=== PATIENT | male | born 1940 | race Caucasian/White ===

== ENCOUNTER 2016-09-04 11:35 | Inpatient (IN) | payer MEDICARE, BC ==
[2016-09-04 12:14] VITALS: BP 144/73; PULSE 75; RESP 16; TEMP 98.1; O2SAT 97
[2016-09-04] MEDS ORDERED: CITA20TA4 PO (12:18)
[2016-09-04] MEDS ORDERED: DONE10TA7 PO (12:18)
--- NOTE | 2016-09-04 12:19 | PD ---
HPI Chief Complaint: Psychiatric Symptoms Time Seen by Provider: 12:16 Travel History International Travel<30 days: No Contact w/Intl Traveler<30days: No History of Present Illness HPI Patient comes in under police escort under a [place] act. Per [place] act patient was becoming aggressive an arguing with family. catapult and arresting gear officer also reports that en route patient asked the officer to shoot him in the head. Patient reportedly has a history of dementia. Patient denies any homicidal or suicidal ideations. Denies any medical concerns at this time. Denies any chest pain, shortness of breath, fevers, abdominal pain, or headaches. [facility] Past Medical History Narrative Medical Dementia Social History Alcohol Use: No Tobacco Use: No Substance Use: No Allergies-Medications (Allergen,Severity, Reaction): Coded Allergies: No Known Allergies (Unverified , 09/04/16) Reported Meds & Prescriptions Reported Meds & Active Scripts Active Reported Donepezil 10 Mg Tab 10 Mg PO HS Citalopram (Citalopram Hydrobromide) 20 Mg Tab 20 Mg PO DAILY Review of Systems Except as stated in HPI: all other systems reviewed are Neg Physical Exam Narrative GENERAL: Well-developed, well nourished, in no acute distress, and non-ill appearing. SKIN: Focused skin assessment warm and dry. HEAD: Atraumatic. Normocephalic. EYES: Pupils equal and round. EOMI. No scleral icterus. No injection or drainage. ENT: No nasal bleeding or discharge. Mucous membranes pink and moist. NECK: Trachea midline. Supple. No nuclear rigidity. CARDIOVASCULAR: Regular rate and rhythm. No murmur appreciated. RESPIRATORY: No accessory muscle use. No respiratory distress. Clear to auscultation. Breath sounds equal bilaterally. MUSCULOSKELETAL: No obvious deformities. No clubbing. No cyanosis. No edema. Full range of motion. NEUROLOGICAL: Awake and alert. No obvious cranial nerve deficits. Motor grossly within normal limits. Normal speech. PSYCHIATRIC: Appropriate mood and affect; insight and judgment normal. Data Data Last Documented VS Vital Signs Date Time Temp Pulse Resp B/P Pulse Ox O2 Delivery O2 Flow Rate FiO2 09/04/16 12:14 98.1 75 16 144/73 97 Room Air Orders Complete Blood Count With Diff (09/04/16 11:58) Comprehensive Metabolic Panel (09/04/16 11:58) Urinalysis - C+S If Indicated (09/04/16 11:58) Psych Screen (09/04/16 11:58) Drug Screen, Random Urine (09/04/16 11:58) Alcohol (Ethanol) (09/04/16 11:58) Salicylates (Aspirin) (09/04/16 11:58) Tylenol (Acetaminophen) (09/04/16 11:58) Restraints Non-Violent DORA.Q3H (09/04/16 13:20) Labs Laboratory Tests Test 09/04/16 09/04/16 12:25 12:28 White Blood Count 5.8 TH/MM3 Red Blood Count 5.01 MIL/MM3 Hemoglobin 15.8 GM/DL Hematocrit 46.9 % Mean Corpuscular Volume 93.6 FL Mean Corpuscular Hemoglobin 31.4 PG Mean Corpuscular Hemoglobin 33.6 % Concent Red Cell Distribution Width 13.6 % Platelet Count 119 TH/MM3 Mean Platelet Volume 10.5 FL Neutrophils (%) (Auto) 77.4 % Lymphocytes (%) (Auto) 14.4 % Monocytes (%) (Auto) 7.0 % Eosinophils (%) (Auto) 0.7 % Basophils (%) (Auto) 0.5 % Neutrophils # (Auto) 4.5 TH/MM3 Lymphocytes # (Auto) 0.8 TH/MM3 Monocytes # (Auto) 0.4 TH/MM3 Eosinophils # (Auto) 0.0 TH/MM3 Basophils # (Auto) 0.0 TH/MM3 CBC Comment DIFF FINAL Differential Comment Sodium Level 140 MEQ/L Potassium Level 4.3 MEQ/L Chloride Level 106 MEQ/L Carbon Dioxide Level 28.7 MEQ/L Anion Gap 5 MEQ/L Blood Urea Nitrogen 17 MG/DL Creatinine 1.28 MG/DL Estimat Glomerular Filtration 55 ML/MIN Rate Random Glucose 135 MG/DL Calcium Level 9.3 MG/DL Total Bilirubin 1.1 MG/DL Aspartate Amino Transf 28 U/L (AST/SGOT) Alanine Aminotransferase 27 U/L (ALT/SGPT) Alkaline Phosphatase 94 U/L Total Protein 7.6 GM/DL Albumin 3.9 GM/DL Salicylates Level LESS THAN 1.7 MG/DL Acetaminophen Level LESS THAN 2.0 MCG/ML Ethyl Alcohol Level LESS THAN 3 MG/DL Urine Color YELLOW Urine Turbidity CLEAR Urine pH 5.0 Urine Specific [place] 1.026 Urine Protein 30 mg/dL Urine Glucose (UA) NEG mg/dL Urine Ketones NEG mg/dL Urine Occult Blood TRACE Urine Nitrite NEG Urine Bilirubin NEG Urine Urobilinogen LESS THAN 2.0 MG/DL Urine Leukocyte Esterase NEG Urine RBC 1 /hpf Urine WBC 1 /hpf Urine Squamous Epithelial <1 /hpf Cells Urine Granular Casts 12 /lpf Urine Mucus FEW /lpf Microscopic Urinalysis Comment CULT NOT INDICATED Urine Opiates Screen NEG Urine Barbiturates Screen NEG Urine Amphetamines Screen NEG Urine Benzodiazepines Screen NEG Urine Cocaine Screen NEG Urine Cannabinoids Screen NEG MDM Medical Decision Making Medical Screen Exam Complete: Yes Emergency Medical Condition: Yes Differential Diagnosis Homicidal, suicidal, dementia, electrolyte abnormality, other Narrative Course Patient was seen and examined. Labs were obtained and reviewed. Patient medically cleared for further treatment and evaluation by psych. Final disposition per psych. Diagnosis Primary Impression: Medical clearance for psychiatric admission Condition: Charles Fatima Sep 04, 2016 12:19
[2016-09-04 12:41] LABS: AUTOMATED NEUTROPHIL # 4.5 TH/MM3 (1.8-7.7); BASOPHIL % 0.5 % (0.0-2.0); EOSINOPHIL % 0.7 % (0.0-4.0); HEMATOCRIT 46.9 % (39.0-51.0); HEMO FLAGS DIFF FINAL; LYMPH % 14.4 % (9.0-44.0); LYMPHOCYTE # 0.8 TH/MM3 (1.0-4.8); MEAN CELL VOLUME 93.6 FL (80.0-100.0); MEAN CORPUSCULAR HEMOGLOBIN 31.4 PG (27.0-34.0); MEAN CORPUSCULAR HGB CONC 33.6 % (32.0-36.0); NEUT % 77.4 % (16.0-70.0); PLATELET COUNT 119 TH/MM3 (150-450); RED BLOOD COUNT 5.01 MIL/MM3 (4.50-5.90); RED CELL DISTRIBUTION WIDTH 13.6 % (11.6-17.2); WHITE BLOOD COUNT 5.8 TH/MM3 (4.0-11.0)
[2016-09-04 12:56] LABS: AMPHETAMINE, URINE NEG (NEG); BARBITURATES, URINE NEG (NEG); COCAINE, URINE NEG (NEG)
[2016-09-04 12:57] LABS: BLOOD, URINE TRACE (NEG); COMMENT (UR) CULT NOT INDICATED; CULTURE IF INDICATED CULT NOT INDICATED; GLUCOSE,URINE NEG (NEG); GRANULAR CAST, URINE 12 /lpf; KETONE, URINE NEG (NEG); MUCUS URINE FEW /lpf (OCC); NITRITE,URINE NEG (NEG); SQUAMOUS EPITHELIAL CELL URINE <1 /hpf (0-5); URINE COLOR YELLOW (YELLW/STRAW)
[2016-09-04 13:07] LABS: ALT (GPT) 27 U/L (12-78); ANION GAP 5 MEQ/L (5-15); AST (GOT) 28 U/L (15-37); BICARBONATE 28.7 MEQ/L (21.0-32.0); BLOOD UREA NITROGEN 17 MG/DL (7-18); CHLORIDE 106 MEQ/L (98-107); GLOMERULAR FILTRATION RATE 55 ML/MIN (>89); POTASSIUM 4.3 MEQ/L (3.5-5.1); SODIUM (NA) 140 MEQ/L (136-145)
[2016-09-04 13:10] LABS: ALKALINE PHOSPHATASE 94 U/L (45-117); TOTAL BILIRUBIN ADULT 1.1 MG/DL (0.2-1.0)
[2016-09-04 13:11] LABS: ACETAMINOPHEN LESS THAN 2.0 MCG/ML (10.0-30.0)
[2016-09-04] MEDS ORDERED: TRAV0.00 EACH EYE (17:43)
[2016-09-04] MEDS ORDERED: COMB0.2S EACH EYE (17:43)
[2016-09-04] MEDS ORDERED: SIMV40TA PO (17:43)
[2016-09-04 18:53] VITALS: BP 128/74; PULSE 75; RESP 20; O2SAT 98
[2016-09-04] MEDS ORDERED: LORazepam 2 MG/ML VIAL - age > 65 yrs IM PRN (20:15)
[2016-09-04] MEDS ORDERED: ALUMINUM/MAGNESIUM/SIMETH 30 ML CUP PO PRN (20:15)
[2016-09-04] MEDS ORDERED: MAGNESIUM HYDROXIDE SUSP 30 ML CUP PO PRN (20:15)
[2016-09-04] MEDS ORDERED: ACETAMINOPHEN 325 MG TAB PO PRN (20:15)
[2016-09-04] MEDS ORDERED: BRIMONIDINE TIMOLOL EACH EAR SCH (21:00)
[2016-09-04] MEDS ORDERED: DONEPEZIL HCL 5 MG TAB PO SCH (21:00)
[2016-09-04 21:30] VITALS: BP 154/86; PULSE 84; RESP 17; TEMP 97.7; O2SAT 98
[2016-09-04] MEDS: LATANOPROST 0.005% OPHT SOLN 2.5 ML BTL EACH EYE SCH (23:47)
[2016-09-04] MEDS: PRAVASTATIN SOD 80 MG TAB PO SCH (23:47)
[2016-09-05 06:04] VITALS: BP 108/64; PULSE 84; RESP 18; TEMP 98.1; O2SAT 96
[2016-09-05 09:29] LABS: ANION GAP 9 MEQ/L (5-15); BICARBONATE 28.7 MEQ/L (21.0-32.0); BLOOD UREA NITROGEN 16 MG/DL (7-18); CHLORIDE 103 MEQ/L (98-107); GLOMERULAR FILTRATION RATE 61 ML/MIN (>89); HDL CHOLESTEROL 73.9 MG/DL (40.0-60.0); LDL CHOLESTEROL 93 MG/DL (0-99); POTASSIUM 3.8 MEQ/L (3.5-5.1); SODIUM (NA) 141 MEQ/L (136-145)
[2016-09-05] MEDS: DONEPEZIL HCL 5 MG TAB PO SCH (09:48)
[2016-09-05] MEDS: CITALOPRAM HYDROBROMIDE 20 MG TAB PO SCH (09:48)
[2016-09-05 13:17] LABS: HEMOGLOBIN A1b 0.7 %; HEMOGLOBIN F 1.2 %; HEMOGLOBIN LA1C 1.9 %; HEMOGLOBIN P3 3.4 %
--- NOTE | 2016-09-05 14:43 | PD.CONS ---
HPI Service [facility] Consult Requested By Psychiatry team Dr. Bob Reason for Consult Medical management-glaucoma Primary Care Physician Unknown Diagnoses: History of Present Illness Patient is a 76-year-old male with primary medical history of HTN, history of CVA 2, glaucoma, dementia who came in to the hospital under [place] act. As per report, patient was becoming aggressive and arguing with family. In route to the hospital, patient asked the officer to shoot him in the head. Patient is now admitted to inpatient psychiatry unit for further evaluation. Consulted for medical management. Patient seen today. Verified medical history. States he had CVAs 2 in was given aspirin and statin medication by neurology. States that he was told if the medication is completed he doesn't need to continue with a refill. Patient also reports he has glaucoma, anxiety, HTN. Denies any acute issues. Denies pain and discomfort. Denies SOB/ dyspnea. Denies chest pain, palpitations, headaches, dizziness. Denies fevers, chills, n/v/d. Review of Systems Except as stated in HPI: all other systems reviewed are Neg Past Family Social History Allergies: Coded Allergies: No Known Allergies (Unverified , 09/04/16) Past Medical History CVA 2 Glaucoma Anxiety HTN Past Surgical History Left knee replacement Reported Medications Combigan 1 drop each eye every 12 hours Citalopram 20 mg daily Simvastatin 40 mg daily Donepezil 10 mg daily Travatan 1 drop each eye daily at bedtime Active Ordered Medications Current Medications Medications (Trade) Dose Ordered Sig/Steven Route Start Time Stop Time Status Last Admin (Ativan) 0.5 mg Q12H PRN PO 09/04/16 20:15 (Ativan Inj) 0.5 mg Q12H PRN IM 09/04/16 20:15 (Tylenol) 650 mg Q4H PRN PO 09/04/16 20:15 (Milk Of Magnesia Liq) 30 ml DAILY PRN PO 09/04/16 20:15 (Mag-Al Plus Susp Liq) 30 ml Q6H PRN PO 09/04/16 20:15 (CeleXA) 20 mg DAILY PO 09/05/16 09:00 09/05/16 09:48 (Xalatan 0.005% Opth Soln) 1 drop HS EACH EYE 09/04/16 21:00 09/04/16 23:47 Patient Own Medication PT OWN MED: BRIMONIDINE-TIMOLOL (COMBIGAN O... BID EACH EAR 09/04/16 21:00 Hold (Pravachol) 80 mg HS PO 09/04/16 21:00 09/04/16 23:47 (Aricept) 10 mg DAILY PO 09/05/16 09:00 09/05/16 09:48 Family History Father had a stroke Social History Alcohol use not within 2 years. Tobacco use former occasional user has quit approximately more than 10 years ago Denies illicit drug use Physical Exam Vital Signs Vital Signs Date Time Temp Pulse Resp B/P Pulse Ox O2 Delivery O2 Flow Rate FiO2 09/05/16 06:04 98.1 84 18 108/64 96 09/04/16 21:30 97.7 84 17 154/86 98 09/04/16 18:53 75 20 128/74 98 Physical Exam GENERAL: This is a well-nourished, well-developed patient, in no apparent distress. SKIN: No rashes, ecchymoses or lesions. Cool and dry. HEAD: Atraumatic. Normocephalic. No temporal or scalp tenderness. EYES: Pupils equal round and reactive. No scleral icterus. No injection or drainage. ENT: Nose without bleeding. Throat without erythema. Uvula midline. Airway patent. NECK: Trachea midline. No JVD or lymphadenopathy. Supple, nontender, no meningeal signs. CARDIOVASCULAR: Regular rate and rhythm without murmurs, gallops, or rubs. RESPIRATORY: Clear to auscultation. Breath sounds equal bilaterally. No wheezes , rales, or rhonchi. GASTROINTESTINAL: Abdomen soft, non-tender, nondistended. Bowel sounds active 4 MUSCULOSKELETAL: Extremities without clubbing, cyanosis, or edema. No joint tenderness, effusion, or edema noted. NEUROLOGICAL: Awake and alert. Forgetful. Motor and sensory grossly within normal limits. Normal speech. Laboratory Laboratory Tests Test 09/05/16 08:35 Sodium Level 141 Potassium Level 3.8 Chloride Level 103 Carbon Dioxide Level 28.7 Anion Gap 9 Blood Urea Nitrogen 16 Creatinine 1.17 Estimat Glomerular Filtration 61 Rate Random Glucose 81 Hemoglobin A1c 5.0 Calcium Level 9.4 Triglycerides Level 89 Cholesterol Level 185 LDL Cholesterol 93 HDL Cholesterol 73.9 Cholesterol/HDL Ratio 2.50 Result Diagram: 09/04/16 1225 09/05/16 0835 Assessment and Plan Problem List: (1) HTN (hypertension) ICD Code: I10 Status: Chronic (2) Glaucoma ICD Code: H40.9 Status: Chronic Assessment and Plan Patient is a 76-year-old male with primary medical history of HTN, history of CVA 2, glaucoma, dementia who came in to the hospital under [place] act. As per report, patient was becoming aggressive and arguing with family. In route to the hospital, patient asked the officer to shoot him in the head. Patient is now admitted to inpatient psychiatry unit for further evaluation. Consulted for medical management. Dementia, but behavioral manifestations - Continue Aricept - Managed by psychiatry team HTN - Not on any medications. - Monitor BP. If continues to be elevated will start BP meds, lisinopril low -dose. History of CVA - Continue pravastatin 80 mg, home med to simvastatin 40mg Glaucoma - Continue eyedrops Labs reviewed: CBC slightly low platelet count 119, neutrophils 77.4, lymphs 0.8. CMP EGFR 61, hemoglobin A1c 5.0 DVT prop ambulation Written by Tanika Brink, acting as scribe for Dr. Alonso on 09/05/16 at 14:40. All or portions of this note were transcribed by justyn PALACIOS. I, Dr. Jackie Alonso personally performed the history, physical exam, and medical decision making; and confirmed the accuracy of the information in the transcribed note. Authenticated by Dr. Jackie Alonso on 09/05/16 at 14:40. Code Status Full code Discussed Condition With Patient, nursing Tanika Dunlap Sep 05, 2016 14:43 Jackie Alonso MD Sep 05, 2016 16:00
[2016-09-05] MEDS ORDERED: MAGNESIUM HYDROXIDE SUSP 30 ML CUP PO PRN (17:45)
[2016-09-05] MEDS ORDERED: ALUMINUM/MAGNESIUM/SIMETH 30 ML CUP PO PRN (17:45)
[2016-09-05] MEDS ORDERED: ACETAMINOPHEN 325 MG TAB PO PRN (17:45)
[2016-09-05 18:00] VITALS: BP 133/63; PULSE 92; TEMP 98.7; O2SAT 97
--- NOTE | 2016-09-05 18:02 | HHI.HP ---
Provisional Diagnosis Admission Date Sep 04, 2016 at 19:51 [place] I. Dementia Alzheimer's type with behavioral disturbance G 30.8 Certification of Person's Competence To Provide Express and Informed Consent I have personally examined Darrin Monaco , a person being served at [facility] on, Sep 05, 2016 17:51. Express and informed consent means consent voluntarily given in writing, by a competent person, after sufficient explanation and disclosure of the subject matter involved to enable the person to make a knowing and willful decision without any element of force, fraud, deceit, duress, or other form of constraint or coercion. This person is 18 years of age or older, is not now known to be incompetent to consent to treatment with a guardian advocate, and does not have a health care surrogate or proxy currently making medical treatment decisions. I have found this person to be one of the following: [] Competent to provide express and informed consent, as defined above, for voluntary admission to this facility and is competent to provide express and informed consent for treatment. He/she has the consistent capacity to make well reasoned, willful, and knowing decisions concerning his or her medical or mental health treatment. The person fully and consistently understands the purpose of the admission for examination/placement and is fully capable of personally exercising all rights assured [place] [x] Incompetent to provide express and informed consent to voluntary admission, and this is incompetent to provide express and informed consent to treatment. The person must be transferred to involuntary status and a petition for a guardian advocate filed with the Circuit Court. [] Refusing to provide express and informed consent to voluntary admission but is competent to provide express and informed consent for treatment. The person must be discharged or transferred to involuntary status. Form shall be completed within 24 hours of a person's arrival at the receiving facility and filed in the clinical record of each person: 1. Admitted on a voluntary basis 2. Permitted to provide express and informed consent to his/her own treatment 3. Allowed to transfer from involuntary to voluntary status 4. Prior to permitting a person to consent to his or her own treatment after having been previously found incompetent to consent to treatment. History of Present Illness Capacity: Lacks Capacity HPI Patient is a 76-year-old white male who comes here under [place] act by the [facility]'s office dated 09/04/16 at 10:36 AM the document reviewed and agreed with basically stating that Darrin got into a verbal argument with his stating that there are people out to get him to take his so from him. Darrin also stated that they were out of money and they needed to go to [place] to see their daughter. There is some some concern that medications are not helping him at this time patient also contact his pressure onto the bed and pulled her chart embolic with this and told her he would punch her in the face. He also noted that while transporting patient he became more disruptive and combative stated he wanted us to shoot him in the head and kill him. Patient seen screened in the ED urine toxicology negative bladder: Negative. Patient seen in his room with nurse Cate. Patient now alert and white male diffusely confused all 4 spheres. Did not seem to recollect the behaviors that led to this hospitalization yesterday. He now she is and has 3 children. He states he has seen a psychiatrist in the past though he stated that only after I introduced myself as a psychiatrist. He is vague about any prior contact or hospitalizations. Is vague about prior alcohol use. Denies prior drug use. Denies any physical or sexual abuse. Though he states maybe some mental health issues with his parents though he cannot identify which one. Any event at the present time patient does meet criteria for involuntary psychiatric hospitalization on the [place] act I'll do first opinion requests a second opinion. I feel he does not have capacity thus I'll ask for healthcare surrogate and guardian advocate. We'll continue his medications per the med reconciliation. Attempt regimen if the patient's will of the next few days. Also hospitalist consult with us on neurology consult with us Review of Systems ROS Limitations: Clinical Condition, Altered Mental Status Past Psych History Psychological trauma history Patient denies Violence risk - others (6 mos) Denies though he has been aggressive with his Violence risk - self (6 mos) Denies though he stated he wished the [facility] office to kill him Substance Abuse History Drugs/Alcohol past 12 months Denies Past Family Social History Coded Allergies: No Known Allergies (Unverified , 09/04/16) Past Medical History See MedSurg assessment Reported Medications Simvastatin 40 Mg Tab40 Mg PO HS #30 TAB Ref 0 09/04/16 Travoprost Opth Drops (Travatan Z Opth Drops)0.004 % Soln1 Drop EACH EYE HS #1 BOTTLE Ref 0 09/04/16 Brimonidine-Timolol Opth Drops (Combigan Opth Drops)0.2-0.5% Soln1 Drop EACH EYE Q12HR Ref 0 09/04/16 Donepezil 10 Mg Tab10 Mg PO DAILY #0 TAB Ref 0 09/04/16 Citalopram 20 Mg Tab20 Mg PO DAILY #30 TAB Ref 0 09/04/16 Current Medications Medications (Trade) Dose Ordered Sig/Steven Route Start Time Stop Time Status Last Admin (Ativan) 0.5 mg Q12H PRN PO 09/04/16 20:15 (Ativan Inj) 0.5 mg Q12H PRN IM 09/04/16 20:15 (Tylenol) 650 mg Q4H PRN PO 09/04/16 20:15 (Milk Of Magnesia Liq) 30 ml DAILY PRN PO 09/04/16 20:15 (Mag-Al Plus Susp Liq) 30 ml Q6H PRN PO 09/04/16 20:15 (CeleXA) 20 mg DAILY PO 09/05/16 09:00 09/05/16 09:48 (Xalatan 0.005% Opth Soln) 1 drop HS EACH EYE 09/04/16 21:00 09/04/16 23:47 Patient Own Medication PT OWN MED: BRIMONIDINE-TIMOLOL (COMBIGAN O... BID EACH EAR 09/04/16 21:00 Hold (Pravachol) 80 mg HS PO 09/04/16 21:00 09/04/16 23:47 (Aricept) 10 mg DAILY PO 09/05/16 09:00 09/05/16 09:48 Family History Patient denies mental health issues in the family though he made vague statements concerning his father Social History Patient lives with his Patient's Strengths (min. 2) Patient verbal able access healthcare has supportive family Physical Exam Patient Seen screened in ED exam reviewed and agreed with vital signs blood pressure 108/64 pulse 84 respirations 18 Vital Signs Vital Signs Date Time Temp Pulse Resp B/P Pulse Ox O2 Delivery O2 Flow Rate FiO2 09/05/16 06:04 98.1 84 18 108/64 96 09/04/16 12:14 Room Air Mental Status Examination Alert diffusely disorganized thin slender white male balding demand, cooperative with us with good eye contact Appearance Clean and neat Speech: Hesitant, Circumstantial, Tangential Orientation: Person (vaguely) Memory: Impaired (describe) Thought Process: Loose Association Thought Content: Other (disorganized) Language Honduran [employer] Knowledge Poor Attention and Concentration: Other (poor) Suicidal Ideation: No (denies though made statements to police to shoot him and kill him) Previous Suicide Attempts: No Homicidal Ideation: No (denies though he made threats towards his ) Previous Homicide Attempts: No Insight: Poor Judgment: Poor Affect: Other (decreased range and intensity) Mood: Euthymic (to somewhat restricted) Motor Activity: Normal gait Assessment & Plan Problem List: (1) Dementia of Alzheimer's type with behavioral disturbance ICD Code: G30.8 Assessment & Plan Estimated LOS: 3-5 days patient meets criteria for involuntary the catheter customization of the [place] act I'll do first opinion requests second opinion. If he doesn't have capacity L ask for healthcare surrogate and guardian advocate. He do have hospitalist consulted and neurology consulted. We'll attempt to meet with patient's the next 1-2 days Discharge Planning To be determined Request HC Surrog/Guard Advoc?: Yes Problem Qualifiers (1) Dementia of Alzheimer's type with behavioral disturbance: Qualified Code: G30.8 - Alzheimer's disease of other onset with behavioral disturbance Danny Bob MD Sep 05, 2016 18:02
[2016-09-05] MEDS: LATANOPROST 0.005% OPHT SOLN 2.5 ML BTL EACH EYE SCH (22:54)
[2016-09-05] MEDS: PRAVASTATIN SOD 80 MG TAB PO SCH (22:54)
[2016-09-06 06:17] VITALS: BP 107/57; PULSE 76; RESP 16; TEMP 96.2; O2SAT 98
[2016-09-06] MEDS: CITALOPRAM HYDROBROMIDE 20 MG TAB PO SCH (10:00)
[2016-09-06] MEDS: DONEPEZIL HCL 5 MG TAB PO SCH (10:00)
--- NOTE | 2016-09-06 14:09 | HHI.PYPN ---
Subjective Remarks Is a request for second opinion for Dr. Bob. Patient was seen, case discussed with nursing, and admission documentation reviewed. Patient is alert and oriented 1. He thinks is 1991. Memory is impaired and he does not remember understand why he is here in the hospital. Per nursing he is been regarding the doorway. Affect is anxious. Denies suicidal ideation intent or plan. Denies auditory visual hallucinations Objective Alert: Yes [place]: Person Mood: Depressed Affect: Restricted Memory Intact: Comment (grossly impaired) Hallucinations: Auditory (denies) Delusions: No Delusion Type: Other (denies) Suicidal: Ideation (denies) Homicidal: Ideation (denies) Insight/Judgment Poor Vitals/IOs Vital Signs Date Time Temp Pulse Resp B/P Pulse Ox O2 Delivery O2 Flow Rate FiO2 09/06/16 06:17 96.2 76 16 107/57 98 09/04/16 12:14 Room Air Intake and Output 09/05/16 09/05/16 09/06/16 08:00 16:00 00:00 Intake Total 360 ml Balance 360 ml Assessment & Plan Problem List: (1) Dementia of Alzheimer's type with behavioral disturbance ICD Code: G30.8 Assessment & Plan I agree with the first opinion to continue petition. Criteria include aggression towards at home with poor insight Justification for Cont. Inpt. Patient will decompensate in a less restrictive setting Request HC Surrog/Guard Advoc?: Yes Problem Qualifiers (1) Dementia of Alzheimer's type with behavioral disturbance: Qualified Code: G30.8 - Alzheimer's disease of other onset with behavioral disturbance Jayson Hartman DO Sep 06, 2016 14:09
[2016-09-06 20:30] VITALS: BP 163/93; PULSE 88; RESP 18; TEMP 97.1; O2SAT 97
[2016-09-06] MEDS: LATANOPROST 0.005% OPHT SOLN 2.5 ML BTL EACH EYE SCH (21:24)
[2016-09-06] MEDS: PRAVASTATIN SOD 80 MG TAB PO SCH (21:24)
[2016-09-07] MEDS: LORazepam 0.5 MG TAB age > 65 yrs PO PRN (00:20)
[2016-09-07 06:29] VITALS: BP 125/71; PULSE 77; RESP 16; TEMP 97.7; O2SAT 98
[2016-09-07] MEDS: CITALOPRAM HYDROBROMIDE 20 MG TAB PO SCH (09:25)
[2016-09-07] MEDS: DONEPEZIL HCL 5 MG TAB PO SCH (09:25)
--- NOTE | 2016-09-07 13:41 | HHI.PYPN ---
Subjective Remarks Patient discussed with treatment team, chart review, later met with patient's daughter and counselor Eda. Patient seen on unit. Continues disorganized confused status states he slept very little last night was found standing gazing at the wall through the night. The no overt behavioral problems noted discussed diagnosis treatment medications and possible placement issues with patient's family patient is a and daughter also agreed that patient should be a DNR. We'll add Seroquel 25 mg at at bedtime with permission of health care surrogate/guardian advocate Review of Systems Except as stated in HPI: all other systems reviewed are Neg Objective Alert: Yes [place]: Person Mood: Depressed Affect: Restricted Memory Intact: Comment (grossly impaired) Hallucinations: Auditory (denies) Delusions: No Delusion Type: Other (denies) Suicidal: Ideation (denies) Homicidal: Ideation (denies) Insight/Judgment Very poor Labs Test 09/06/16 14:46 Vitamin B12 Level 456 PG/ML Thyroid Stimulating Hormone 0.863 uIU/ML 3rd Gen Vitals/IOs Vital Signs Date Time Temp Pulse Resp B/P Pulse Ox O2 Delivery O2 Flow Rate FiO2 09/07/16 06:29 97.7 77 16 125/71 98 09/04/16 12:14 Room Air Intake and Output 09/06/16 09/06/16 09/07/16 08:00 16:00 00:00 Intake Total 0 ml 0 ml 720 ml Balance 0 ml 0 ml 720 ml Assessment & Plan Problem List: (1) Dementia of Alzheimer's type with behavioral disturbance ICD Code: G30.8 Assessment & Plan Estimated LOS: days patient continues confused and demented, with very poor sleep. Also some wandering. Justification for Cont. Inpt. With this time patient will decompensate if placed in a lower level of care Discharge Planning To be determined Request HC Surrog/Guard Advoc?: Yes Problem Qualifiers (1) Dementia of Alzheimer's type with behavioral disturbance: Qualified Code: G30.8 - Alzheimer's disease of other onset with behavioral disturbance Danny Bob MD Sep 07, 2016 13:41
--- NOTE | 2016-09-07 14:00 | RADRPT ---
EXAM DATE/TIME: 09/07/2016 13:25 [facility] COMPARISON: No previous studies available for comparison. INDICATIONS : CVA. Dementia. MEDICAL HISTORY : Stroke Alzheimer's. SURGICAL HISTORY : Total knee replacement, left. ENCOUNTER: Initial ACUITY: 2 day PAIN SCORE: 0/10 LOCATION: head TECHNIQUE: Multiplanar, multisequence MRI of the brain was performed without contrast. FINDINGS: No evidence for acute infarction. There is mild diffuse volume loss greatest in the frontal regions. There is confluent increased signal in the periventricular white matter and scattered foci of increas ed signal on T2 images in the bilateral centrum semiovale he most characteristic of chronic microvasc ular ischemic disease. No signs of hemorrhage, mass, or acute infarction. CONCLUSION: Atrophy and white matter disease with no acute findings. Farhad Richter MD on September 07, 2016 at 13:58 Board Certified Radiologist. This report was verified electronically.
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
--- NOTE | 2016-09-07 15:20 | EC ---
Study Study Date:09/07/2016 STUDY CONCLUSIONS SUMMARY - Left ventricle: The cavity size was normal. Wall thickness was increased in a pattern of severe LVH. Systolic function was normal. The estimated ejection fraction was in the range of 55% to 60%. Wall motion was normal; there were no regional wall motion abnormalities. - Mitral valve: Mild regurgitation. Valve area by pressure half-time: 2cm^2. If LV function is below 40, please consider prescribing an ACEI or ARB or document rationale for non-use. PROCEDURE DATA STUDY STATUS: Elective. Procedure: Transthoracic echocardiography. Image quality was good. Scanning was performed from the parasternal, apical, and subcostal acoustic windows. Study completion: The patient tolerated the procedure well. Transthoracic echocardiography. M-mode, complete 2D, complete spectral Doppler, and color Doppler. Patient status: Inpatient. CARDIAC ANATOMY LEFT VENTRICLE: The cavity size was normal. Wall thickness was increased in a pattern of severe LVH. Systolic function was normal. The estimated ejection fraction was in the range of 55% to 60%. Wall motion was normal; there were no regional wall motion abnormalities. AORTIC VALVE: Trileaflet; normal thickness leaflets. Doppler: Transvalvular velocity was within the normal range. There was no stenosis. No regurgitation. Mean gradient: 10mm Hg (S). Peak gradient: 28mm Hg (S). AORTA: Aortic root: The aortic root was normal in size. MITRAL VALVE: Structurally normal valve. Doppler: Transvalvular velocity was within the normal range. There was no evidence for stenosis. Mild regurgitation. Valve area by pressure half-time: 2cm^2. Peak gradient: 3mm Hg (D). LEFT ATRIUM: The atrium was normal in size. RIGHT VENTRICLE: The cavity size was normal. Wall thickness was normal. PULMONIC VALVE: Doppler: Transvalvular velocity was within the normal range. There was no evidence for stenosis. No regurgitation. TRICUSPID VALVE: Structurally normal valve. Doppler: Transvalvular velocity was within the normal range. No regurgitation. PULMONARY ARTERY: The main pulmonary artery was normal-sized. Systolic pressure was within the normal range. RIGHT ATRIUM: The atrium was normal in size. PERICARDIUM: There was no pericardial effusion. SYSTEMIC VEINS: Inferior vena cava: The vessel was normal in size. BASIC MEASUREMENTS ADULT Normal Left ventricle LV internal dimension, ED, chordal level, *41.4 mm 43-52 PLAX LV internal dimension, ES, chordal level, 28.2 mm 23-38 PLAX Fractional shortening, chordal level, PLAX 32 % >29 LV posterior wall thickness, ED 20 mm IVS/LVPW ratio, ED 0.82 <1.3 Ventricular septum Septal thickness, ED 16.3 mm Left atrium Anterior-posterior dimension 35 mm Right ventricle RV internal dimension, ED, PLAX 19 mm 19-38 DOPPLER MEASUREMENTS ADULT Normal Main pulmonary artery Pressure, S 27 mm Hg =30 Aortic valve Peak velocity, S 218 cm/s Mean velocity, S 135 cm/s VTI, S 34.2 cm Mean gradient, S 10 mm Hg Peak gradient, S 28 mm Hg Mitral valve Peak E-wave velocity 82.3 cm/s Peak A-wave velocity 94.9 cm/s Pressure half-time 110 ms Peak gradient, D 3 mm Hg Peak E/A ratio 0.9 Valve area, pressure half-time 2 cm^2 Tricuspid valve Regurgitant peak velocity 212 cm/s Peak RV-RA gradient, S 18 mm Hg Maximal regurgitant velocity 212 cm/s Systemic veins Estimated CVP 5 mm Hg Right ventricle RV pressure, S 27 mm Hg <30 LEGEND: Mean values are shown as u=mean value. Asterisk (*) cabrales values outside specified normal range. Prepared and signed by Chino Beavers [id number]
[2016-09-07 19:00] VITALS: BP 100/55; PULSE 78; RESP 18; TEMP 96.5
[2016-09-07] MEDS: PRAVASTATIN SOD 80 MG TAB PO SCH (20:54)
[2016-09-07] MEDS: LATANOPROST 0.005% OPHT SOLN 2.5 ML BTL EACH EYE SCH (20:54)
[2016-09-07] MEDS: QUEtiapine FUMARATE 25 MG TAB PO SCH (20:54)
--- NOTE | 2016-09-07 21:03 | MG ---
cc: BHAVIK BEE MD Lab No: Date: 09/07/2016 Age: Sex: M Race: DATE OF 1940 ELECTROENCEPHALOGRAM RECORD NUMBER [id number] HISTORY 76-year-old, mental status changes, [place] acted. Some history of dementia. DESCRIPTION Generalized slowing, 1-3 Hz delta activity, 10-30 microvolts. Appearance of spindles. Limited driving with photic stimulation. EEG reactivity variability noted towards the last portion of the recording. Appeared to be awake. Posterior rhythm showed 8-10 Hz activity, 10-30 microvolts. Eye movement towards the end. Single lead EKG showing sinus rhythm. No epileptic activity. INTERPRETATION Mainly stage II sleep with brief what appeared to be normal wakefulness. Clinical correlation. Bhavik Bee MD MG/KK /8:12 PM /8:54 PM
[2016-09-08 06:00] VITALS: BP 125/68; PULSE 89; RESP 18; TEMP 97; O2SAT 100
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
[2016-09-08] MEDS: CITALOPRAM HYDROBROMIDE 20 MG TAB PO SCH (08:43)
[2016-09-08] MEDS: MEMANTINE HCL 5 MG TAB PO SCH (08:44)
[2016-09-08] MEDS: DONEPEZIL HCL 5 MG TAB PO SCH (08:44)
[2016-09-08] MEDS: LORazepam 0.5 MG TAB age > 65 yrs PO PRN (11:54)
--- NOTE | 2016-09-08 14:11 | HHI.PYPN ---
Subjective Remarks Patient seen in his room with nurse David, chart reviewed, patient compliant medications. It appears patient somewhat irritable when visiting with his and daughter around lunchtime today. Patient continues markedly confused. For now continue treatment Review of Systems Except as stated in HPI: all other systems reviewed are Neg Objective Alert: Yes [place]: Person Mood: Depressed Affect: Restricted Memory Intact: Comment (grossly impaired) Hallucinations: Auditory (denies) Delusions: No Delusion Type: Other (denies) Suicidal: Ideation (denies) Homicidal: Ideation (denies) Insight/Judgment Poor Vitals/IOs Vital Signs Date Time Temp Pulse Resp B/P Pulse Ox O2 Delivery O2 Flow Rate FiO2 09/08/16 06:00 97.0 89 18 125/68 100 09/04/16 12:14 Room Air Intake and Output 09/07/16 09/07/16 09/08/16 08:00 16:00 00:00 Intake Total 960 ml Balance 960 ml Assessment & Plan Problem List: (1) Dementia of Alzheimer's type with behavioral disturbance ICD Code: G30.8 Assessment & Plan Estimated LOS: days patient continues confused demented, some irritability shoulder towards his family. For now continue treatment Justification for Cont. Inpt. At this time patient will decompensate if placed on the lower level of care Discharge Planning To be determined Request HC Surrog/Guard Advoc?: Yes Problem Qualifiers (1) Dementia of Alzheimer's type with behavioral disturbance: Qualified Code: G30.8 - Alzheimer's disease of other onset with behavioral disturbance Danny Bob MD Sep 08, 2016 14:10
--- NOTE | 2016-09-08 18:55 | RADRPT ---
EXAM DATE/TIME: 09/08/2016 17:52 [facility] COMPARISON: No previous studies available for comparison. INDICATIONS : Transient ischemic attack. MEDICAL HISTORY : Cerebrovascular disease. Hypertension. TIA. Dementia. Anxiety. Glaucoma. SURGICAL HISTORY : Left knee replacement. ENCOUNTER: Initial ACUITY: 1 day PAIN SCORE: 0/10 LOCATION: Bilateral neck PEAK SYSTOLIC VELOCITIES (cm/sec): ICA/CCA RATIO: Right: 0.6 Left: 0.8 ICA: Right: 67 Left: 69 CCA: Right: 105 Left: 87 ECA: Right: 52 Left: 43 VERTEBRAL: Right: 58 antegrade Left: 50 antegrade Elevated flow velocities and ICA/CCA ratios have been found to correlate with increased degrees of vessel stenosis, calculated as percentage of diameter relative to a normal segment of distal ICA/CCA FINDINGS: RIGHT CAROTID: No significant stenosis is visualized. Mild calcific plaquing is present The waveforms are within nor mal limits. LEFT CAROTID: No significant stenosis is visualized. Mild calcific plaquing is present. The waveforms are within no rmal limits. VERTEBRAL ARTERIES: Antegrade flow is seen in both vertebral arteries. MISCELLANEOUS: None. CONCLUSION: Mild bilateral calcified plaque with no evidence of stenosis. Matthew Soto MD on September 08, 2016 at 18:52 Board Certified Radiologist. This report was verified electronically.
[2016-09-08 19:00] VITALS: BP 111/61; PULSE 82; RESP 18; TEMP 97.4
[2016-09-08] MEDS: QUEtiapine FUMARATE 25 MG TAB PO SCH (21:10)
[2016-09-08] MEDS: PRAVASTATIN SOD 80 MG TAB PO SCH (21:10)
[2016-09-08] MEDS: LATANOPROST 0.005% OPHT SOLN 2.5 ML BTL EACH EYE SCH (21:11)
[2016-09-09 05:24] VITALS: BP 122/77; PULSE 87; RESP 20; TEMP 97.5
[2016-09-09] MEDS: MEMANTINE HCL 5 MG TAB PO SCH (09:50)
[2016-09-09] MEDS: DONEPEZIL HCL 5 MG TAB PO SCH (09:50)
[2016-09-09] MEDS: CITALOPRAM HYDROBROMIDE 20 MG TAB PO SCH (09:50)
--- NOTE | 2016-09-09 14:23 | HHI.PYPN ---
Subjective Remarks Patient discussed with treatment team, chart review, later that with patient's and daughter. Family has plans to relocate patient and patient's to [place] to be closer to their children. Family also is showing some insight into the need for appropriate placement for this patient that home is probably not a viable option. Patient did show some significant anger and irritability with his family yesterday. Today patient seen by me continues confused irritable with no insight talking about discharge Review of Systems Except as stated in HPI: all other systems reviewed are Neg Objective Alert: Yes [place]: Person Mood: Depressed Affect: Restricted Memory Intact: Comment (grossly impaired) Hallucinations: Auditory (denies) Delusions: No Delusion Type: Other (denies) Suicidal: Ideation (denies) Homicidal: Ideation (denies) Insight/Judgment Poor Vitals/IOs Vital Signs Date Time Temp Pulse Resp B/P Pulse Ox O2 Delivery O2 Flow Rate FiO2 09/09/16 05:24 97.5 87 20 122/77 09/08/16 06:00 100 Intake and Output 09/08/16 09/08/16 09/09/16 08:00 16:00 00:00 Intake Total 0 ml 360 ml Balance 0 ml 360 ml Assessment & Plan Problem List: (1) Dementia of Alzheimer's type with behavioral disturbance ICD Code: G30.8 Assessment & Plan Estimated LOS: days patient continues to mention confused at times somewhat irritable. For now continue treatment Justification for Cont. Inpt. At this time patient will decompensate if placed in the lower level of care Discharge Planning To be determined Request HC Surrog/Guard Advoc?: Yes Problem Qualifiers (1) Dementia of Alzheimer's type with behavioral disturbance: Qualified Code: G30.8 - Alzheimer's disease of other onset with behavioral disturbance Danny Bob MD Sep 09, 2016 14:23
[2016-09-09 18:00] VITALS: BP 126/80; PULSE 89; RESP 18; TEMP 97.3; O2SAT 95
[2016-09-09] MEDS: LATANOPROST 0.005% OPHT SOLN 2.5 ML BTL EACH EYE SCH (21:20)
[2016-09-09] MEDS: PRAVASTATIN SOD 80 MG TAB PO SCH (21:21)
[2016-09-09] MEDS: QUEtiapine FUMARATE 25 MG TAB PO SCH (21:21)
[2016-09-10 05:58] VITALS: BP 119/65; PULSE 62; RESP 18; TEMP 98.2
[2016-09-10] MEDS: DONEPEZIL HCL 5 MG TAB PO SCH (09:00)
[2016-09-10] MEDS: MEMANTINE HCL 5 MG TAB PO SCH (09:00)
[2016-09-10] MEDS: CITALOPRAM HYDROBROMIDE 20 MG TAB PO SCH (09:00)
--- NOTE | 2016-09-10 11:26 | HHI.PYPN ---
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 Patient continues diffusely confused, no behavioral problems so far today. Patient with mixed compliance medication Review of Systems Except as stated in HPI: all other systems reviewed are Neg Objective Alert: Yes [place]: Person Mood: Depressed Affect: Restricted Memory Intact: Comment (grossly impaired) Hallucinations: Auditory (denies) Delusions: No Delusion Type: Other (denies) Suicidal: Ideation (denies) Homicidal: Ideation (denies) Insight/Judgment Very poor Vitals/IOs Vital Signs Date Time Temp Pulse Resp B/P Pulse Ox O2 Delivery O2 Flow Rate FiO2 09/10/16 05:58 98.2 62 18 119/65 09/09/16 18:00 95 Intake and Output 09/09/16 09/09/16 09/10/16 08:00 16:00 00:00 Intake Total 600 ml 360 ml 600 ml Balance 600 ml 360 ml 600 ml Assessment & Plan Problem List: (1) Dementia of Alzheimer's type with behavioral disturbance ICD Code: G30.8 Assessment & Plan Estimated LOS: days patient continues demented confused, with mixed compliance medication Justification for Cont. Inpt. At this time patient will decompensate if placed in a lower level of care Discharge Planning To be determined Request HC Surrog/Guard Advoc?: Yes Problem Qualifiers (1) Dementia of Alzheimer's type with behavioral disturbance: Qualified Code: G30.8 - Alzheimer's disease of other onset with behavioral disturbance Danny Bob MD Sep 10, 2016 11:26
[2016-09-10 19:17] VITALS: BP 140/76; PULSE 76; RESP 18; TEMP 97.7
[2016-09-10] MEDS: PRAVASTATIN SOD 80 MG TAB PO SCH (21:18)
[2016-09-10] MEDS: QUEtiapine FUMARATE 25 MG TAB PO SCH (21:18)
[2016-09-10] MEDS: LATANOPROST 0.005% OPHT SOLN 2.5 ML BTL EACH EYE SCH (21:19)
[2016-09-11 06:07] VITALS: BP 134/79; PULSE 81; RESP 16; TEMP 98.1
[2016-09-11] MEDS: CITALOPRAM HYDROBROMIDE 20 MG TAB PO SCH (08:30)
[2016-09-11] MEDS: DONEPEZIL HCL 5 MG TAB PO SCH (08:30)
[2016-09-11] MEDS: MEMANTINE HCL 5 MG TAB PO SCH (08:30)
--- NOTE | 2016-09-11 09:37 | HHI.PYPN ---
Subjective Remarks Patient remains confused and was seen in his room this morning. He is not a behavior problem thus far. He is not competent to make decisions regarding his own care and his daughter has been appointed his guardian. Review of Systems ROS Limitations: Clinical Condition Objective Alert: Yes [place]: Person Mood: Depressed Affect: Restricted Memory Intact: Comment (grossly impaired) Hallucinations: Auditory (denies) Delusions: No Delusion Type: Other (denies) Suicidal: Ideation (denies) Homicidal: Ideation (denies) Insight/Judgment Markedly impaired. Vitals/IOs Vital Signs Date Time Temp Pulse Resp B/P Pulse Ox O2 Delivery O2 Flow Rate FiO2 09/11/16 06:07 98.1 81 16 134/79 09/09/16 18:00 95 Intake and Output 09/10/16 09/10/16 09/11/16 08:00 16:00 00:00 Intake Total 900 ml Balance 900 ml Assessment & Plan Problem List: (1) Dementia of Alzheimer's type with behavioral disturbance ICD Code: G30.8 Assessment & Plan Estimated LOS: 7 days we will continue to monitor and evaluate his response to mood stabilizing medications. At this time the patient is not a behavioral problem. However he does remain confused. Justification for Cont. Inpt. Patient unable to care for self. Request HC Surrog/Guard Advoc?: Yes Problem Qualifiers (1) Dementia of Alzheimer's type with behavioral disturbance: Qualified Code: G30.8 - Alzheimer's disease of other onset with behavioral disturbance Lamine Barbosa MD Sep 11, 2016 09:37
[2016-09-11 18:00] VITALS: BP 116/63; PULSE 81; RESP 17; TEMP 96.6; O2SAT 98
[2016-09-11] MEDS: LATANOPROST 0.005% OPHT SOLN 2.5 ML BTL EACH EYE SCH (22:23)
[2016-09-11] MEDS: QUEtiapine FUMARATE 25 MG TAB PO SCH (22:23)
[2016-09-11] MEDS: PRAVASTATIN SOD 80 MG TAB PO SCH (22:23)
[2016-09-12] MEDS: DONEPEZIL HCL 5 MG TAB PO SCH (09:37)
[2016-09-12] MEDS: MEMANTINE HCL 5 MG TAB PO SCH (09:37)
[2016-09-12] MEDS: CITALOPRAM HYDROBROMIDE 20 MG TAB PO SCH (09:38)
--- NOTE | 2016-09-12 17:53 | HHI.PYPN ---
Subjective Remarks Pt seen and discussed with staff. He remains confused and seclusive to his room. He is compliant with treatment. NO agitation or behavioral problems. No SI /HI. Objective Alert: Yes [place]: Person Mood: Calm, Depressed Affect: Restricted Memory Intact: Comment (grossly impaired) Hallucinations: Other (none) Delusions: No Delusion Type: Other (none) Suicidal: Ideation (denies) Homicidal: Ideation (denies) Insight/Judgment poor Vitals/IOs Vital Signs Date Time Temp Pulse Resp B/P Pulse Ox O2 Delivery O2 Flow Rate FiO2 09/11/16 18:00 96.6 81 17 116/63 98 Intake and Output 09/11/16 09/11/16 09/12/16 08:00 16:00 00:00 Intake Total 0 ml 960 ml 720 ml Balance 0 ml 960 ml 720 ml Assessment & Plan Problem List: (1) Dementia of Alzheimer's type with behavioral disturbance ICD Code: G30.8 Assessment & Plan Continue current tx plan. Estimated LOS: days Justification for Cont. Inpt. risk of decompensating Request HC Surrog/Guard Advoc?: Yes Problem Qualifiers (1) Dementia of Alzheimer's type with behavioral disturbance: Qualified Code: G30.8 - Alzheimer's disease of other onset with behavioral disturbance Carol De Los Santos MD Sep 12, 2016 17:53
[2016-09-12 20:00] VITALS: BP 124/65; PULSE 73; TEMP 97.2; O2SAT 100
[2016-09-12] MEDS: PRAVASTATIN SOD 80 MG TAB PO SCH (22:13)
[2016-09-12] MEDS: QUEtiapine FUMARATE 25 MG TAB PO SCH (22:13)
[2016-09-12] MEDS: LATANOPROST 0.005% OPHT SOLN 2.5 ML BTL EACH EYE SCH (22:13)
[2016-09-13 05:30] VITALS: BP 91/61; PULSE 81; RESP 16; TEMP 97.1
[2016-09-13] MEDS: MEMANTINE HCL 5 MG TAB PO SCH (09:00)
[2016-09-13] MEDS: CITALOPRAM HYDROBROMIDE 20 MG TAB PO SCH (09:00)
[2016-09-13] MEDS: DONEPEZIL HCL 5 MG TAB PO SCH (09:37)
[2016-09-13] MEDS: LORazepam 0.5 MG TAB age > 65 yrs PO PRN (14:00)
[2016-09-13] MEDS ORDERED: risperiDONE ODT 0.25 MG TAB PO ONE (14:45)
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
[2016-09-13] MEDS: PRAVASTATIN SOD 80 MG TAB PO SCH (21:48)
[2016-09-13] MEDS: LATANOPROST 0.005% OPHT SOLN 2.5 ML BTL EACH EYE SCH (21:48)
[2016-09-13] MEDS: QUEtiapine FUMARATE 25 MG TAB PO SCH (21:48)
[2016-09-14 05:30] VITALS: BP 106/65; PULSE 67; RESP 18; TEMP 97
[2016-09-14] MEDS: CITALOPRAM HYDROBROMIDE 20 MG TAB PO SCH (09:09)
[2016-09-14] MEDS: MEMANTINE HCL 5 MG TAB PO SCH (09:09)
[2016-09-14] MEDS: DONEPEZIL HCL 5 MG TAB PO SCH (09:10)
[2016-09-14] MEDS ORDERED: CELE20TA PO (11:49)
[2016-09-14] MEDS ORDERED: PRAV80TA PO (11:49)
[2016-09-14] MEDS ORDERED: LATA.005%O EACH EYE (11:49)
[2016-09-14] MEDS ORDERED: ARIC10TA PO (11:49)
[2016-09-14] MEDS ORDERED: NAME5TAB2 PO (11:49)
[2016-09-14] MEDS ORDERED: QUET1TAB7 PO (11:49)
--- NOTE | 2016-09-14 11:56 | HHI.DS ---
Psychiatry Discharge Summary Inpatient Psychiatric care?: Yes Advance Directive: No Mental Health AdvanceDirective: Yes Health Care Proxy: Yes Admission Admission Date Sep 04, 2016 at 19:51 Admission Diagnosis: (1) Dementia of Alzheimer's type with behavioral disturbance ICD Code: G30.8 Brief History Patient is a 76-year-old white male who comes here under [facility] act by the [facility]'s office dated 09/04/16 at 10:36 AM the document reviewed and agreed with basically stating that Darrin got into a verbal argument with his stating that there are people out to get him to take his so from him. Darrin also stated that they were out of money and they needed to go to [place] to see their daughter. There is some some concern that medications are not helping him at this time patient also contact his pressure onto the bed and pulled her chart embolic with this and told her he would punch her in the face. He also noted that while transporting patient he became more disruptive and combative stated he wanted us to shoot him in the head and kill him. Patient seen screened in the ED urine toxicology negative bladder: Negative. Patient seen in his room with nurse Cate. Patient now alert and white male diffusely confused all 4 spheres. Did not seem to recollect the behaviors that led to this hospitalization yesterday. He now she is and has 3 children. He states he has seen a psychiatrist in the past though he stated that only after I introduced myself as a psychiatrist. He is vague about any prior contact or hospitalizations. Is vague about prior alcohol use. Denies prior drug use. Denies any physical or sexual abuse. Though he states maybe some mental health issues with his parents though he cannot identify which one. Any event at the present time patient does meet criteria for involuntary psychiatric hospitalization on the [place]a act I'll do first opinion requests a second opinion. I feel he does not have capacity thus I'll ask for healthcare surrogate and guardian advocate. We'll continue his medications per the med reconciliation. Attempt regimen if the patient's will of the next few days. Also hospitalist consult with us on neurology consult with us Tobacco Use In Past 30 Days: No Tobacco Past 30 Days Alcohol Use: Monthly or Less Hospital Course Patient's hospital course was uneventful, his dementia persists, there is some irritability and anger confusion increased at times of visit with and either daughter or son. Is able to be redirected after family left. There is otherwise no behavioral problem noted, he was compliant with his medications. Meetings with the family including one with and daughter and one with and son that occurred today. All agreed that patient needed placement. There is been a placement found today at [facility] for this gentleman. Family agrees that there would like him place there today they feel the extra activities would be helpful. They are aware of the fact that they need to give him time there to get acclimated. Patient to be discharged today to [facility], Rx 1 month of the scheduled medication, be followed up through their services Results Blood Pressure 106 / 65 Vital Signs Date Time Temp Pulse Resp B/P Pulse Ox O2 Delivery O2 Flow Rate FiO2 09/14/16 05:30 97.0 67 18 106/65 09/12/16 20:00 100 Urine toxicology negative blood alcohol level negative Summary of Procedures None done Imaging Last Impressions Carotid Artery Ultrasound 09/08/16 0000 Signed Impressions: Service Date/Time: Thursday, September 08, 2016 17:52 - CONCLUSION: Mild bilateral calcified plaque with no evidence of stenosis. Matthew Soto MD Brain MRI 09/07/16 0000 Signed Impressions: Service Date/Time: Wednesday, September 07, 2016 13:25 - CONCLUSION: Atrophy and white matter disease with no acute findings. Farhad Richter MD Pending results at discharge: No Medications # of Antipsychotic meds at D/C: 1 Approp Antipsych med options 1 - Minimum of three failed multiple trials of monotherapy. 2 - Documented plan to taper to monotherapy due to previous use of multiple meds OR cross-taper in progress at D/C. 3 - Documentation of augmentation of Clozapine. 4 - Justification other than those listed in allowable values 1-3, document here : Discharge Discharge Date: Sep 14, 2016 Discharge Diagnosis: (1) Dementia of Alzheimer's type with behavioral disturbance Diagnosis: Principal ICD Code: G30.8 Mental Status Exam at Disch Alert diffusely confused male, he is normal active, mood is euthymic to somewhat irritable with occasional increase range and intensity of affect, speech rate and rhythm are somewhat increased it is markedly tangential and circumstantial,, though no auditory or visual hallucinations noted no delusions noted insight and judgment is very poor,, cognition is quite marginal Pt Condition on Discharge: Stable Discharge Disposition: ACLF/PRASANNA Discharge Instructions Diet Instructions: As Tolerated, No Restrictions Activities you can perform: Regular-No Restrictions Scheduled Appointment: Ary fonseca Discharge Time > 30 minutes Discharge/Advance Care Plan Health Problems: (1) Dementia of Alzheimer's type with behavioral disturbance Goals to promote your health * To prevent worsening of your condition and complications * To maintain your health at the optimal level Directions to meet your goals Take your medications as prescribed Follow your dietary instruction Follow activity as directed Keep your appointments as scheduled Take your immunizations and boosters as scheduled If your symptoms worsen call your PCP, if no PCP go to Urgent Care Center or Emergency Room For 21/12 questions related to your inpatient stay or results of tests pending at discharge, please contact Dr. Danny Bob at Smoking is Dangerous to Your Health. Avoid second hand smoking Problem Qualifiers (1) Dementia of Alzheimer's type with behavioral disturbance: Qualified Code: G30.8 - Alzheimer's disease of other onset with behavioral disturbance Danny Bob MD Sep 14, 2016 11:56
== END 2016-09-14 13:40 | DRG 57 ==
LOC: NEPJ 11:35 → NEDA 19:51 → H250 21:03
PROVIDERS: ADMIT Psychiatry & Neurology Psychiatry; ATTEND Psychiatry & Neurology Psychiatry
DX: G30.9 Alzheimer's disease, unspecified (principal); F02.81 Dementia in other diseases classified elsewhere, unspecified severity, with behavioral disturbance; Z91.83 Wandering in diseases classified elsewhere; Z86.73 Personal history of transient ischemic attack (TIA), and cerebral infarction without residual deficits; I10 Essential (primary) hypertension; H40.9 Unspecified glaucoma; Z96.652 Presence of left artificial knee joint; F41.9 Anxiety disorder, unspecified; Z87.891 Personal history of nicotine dependence; E78.5 Hyperlipidemia, unspecified
CPT/HCPCS: 70551; 80048; 80053; 80061; 80307; 81001; 82607; 83036; 84443; 85025; 86592; 93306; 93880; 95819; 99285

== ENCOUNTER 2016-10-01 13:13 | Inpatient (IN) | payer MEDICARE, OTHER ==
[~2016-10-01] VITALS: Ht 177.8 cm; Wt 70.4 kg
[~2016-10-01 13:13] MED LIST: ARIC10TA PO; CELE20TA PO; CITA20TA4 PO; COMB0.2S EACH EYE; DONE10TA7 PO; LATA.005%O EACH EYE; NAME5TAB2 PO; PRAV80TA PO; QUET1TAB7 PO; SIMV40TA PO; TRAV0.00 EACH EYE
[2016-10-01 13:24] VITALS: BP 135/96; PULSE 106; RESP 20; TEMP 98.3; O2SAT 94
[2016-10-01] MEDS ORDERED: DEPA250T2 PO (13:56)
[2016-10-01] MEDS ORDERED: ABH GEL TOPICAL (13:56)
[2016-10-01] MEDS ORDERED: NAME10TA PO (13:56)
[2016-10-01] MEDS ORDERED: ALPR.25 PO (13:56)
[2016-10-01] MEDS ORDERED: ZIPR20P IM (13:56)
[2016-10-01] MEDS ORDERED: PAXI10TA2 PO (13:56)
[2016-10-01] MEDS ORDERED: SERO25TA PO (13:56)
--- NOTE | 2016-10-01 13:57 | PD ---
HPI Chief Complaint: Psychiatric Symptoms Time Seen by Provider: 13:20 Travel History International Travel<30 days: No Contact w/Intl Traveler<30days: No Traveled to known affect area: No History of Present Illness HPI Patient is a 76-year-old male with history of dementia who was sent from his custodial under [employer] act for dangerous behavior. Per paperwork, patient was throwing wheelchairs and was very aggressive. Paperwork states he could not be controlled at his facility. Patient is calm here in the emergency department. He has no complaints. He says sometimes she becomes angry and a neurologist that he does not know what to do with that anger. PFSH Past Medical History Alzheimer's Disease: Yes Anxiety: Yes Dementia: Yes Diminished Hearing: No Hypertension: Yes Neurologic: Yes (TIA) Tetanus Vaccination: Unknown Past Surgical History Appendectomy: Yes Social History Alcohol Use: No Tobacco Use: No Substance Use: No Allergies-Medications (Allergen,Severity, Reaction): Coded Allergies: No Known Allergies (Unverified , 09/04/16) Reported Meds & Prescriptions Reported Meds & Active Scripts Active Pravachol (Pravastatin) 80 Mg Tab 80 Mg PO HS Xalatan Opth Drops (Latanoprost) 0.005% Drops 1 Drop EACH EYE HS Aricept (Donepezil) 10 Mg Tab 10 Mg PO HS Reported Geodon Inj (Ziprasidone) 20 Mg Inj 40 Mg IM DAILY PRN Maximum 40 mg daily [Abh Gel] 1 Applic TOPICAL Q4-6H PRN Depakote DR (Divalproex Sodium) 250 Mg Tabdr 250 Mg PO TID Paxil (Paroxetine HCl) 10 Mg Tab 10 Mg PO DAILY Xanax (Alprazolam) 0.25 Mg Tab 0.25 Mg PO TID Namenda (Memantine) 10 Mg Tab 10 Mg PO BID Seroquel (Quetiapine Fumarate) 25 Mg Tab 25 Mg PO TID Review of Systems Except as stated in HPI: all other systems reviewed are Neg General / Constitutional: No: Fever, Chills HENT: No: Headaches Cardiovascular: No: Chest Pain or Discomfort Respiratory: No: Shortness of Breath Gastrointestinal: No: Nausea, Vomiting Musculoskeletal: No: Myalgias, Arthralgias Skin: No Rash, No Change in Pigmentation Physical Exam Narrative GENERAL: Awake and alert, in no acute distress. SKIN: Focused skin assessment warm/dry. HEAD: Atraumatic. Normocephalic. EYES: Pupils equal and round. No scleral icterus. ENT: No nasal bleeding or discharge. Mucous membranes pink and moist. NECK: Trachea midline. No JVD. CARDIOVASCULAR: Regular rate and rhythm. No murmur appreciated. RESPIRATORY: No accessory muscle use. Clear to auscultation. Breath sounds equal bilaterally. MUSCULOSKELETAL: No obvious deformities. No clubbing. No cyanosis. No edema. NEUROLOGICAL: Awake and alert. No obvious cranial nerve deficits. Motor grossly within normal limits. Normal speech. PSYCHIATRIC: Appropriate mood and affect; insight and judgment normal. Patient does not recount the incident from the facility. Data Data Last Documented VS Vital Signs Date Time Temp Pulse Resp B/P Pulse Ox O2 Delivery O2 Flow Rate FiO2 10/01/16 13:24 98.3 106 20 135/96 94 Orders Complete Blood Count With Diff (10/01/16 13:30) Comprehensive Metabolic Panel (10/01/16 13:30) Psych Screen (10/01/16 13:30) Drug Screen, Random Urine (10/01/16 13:30) Electrocardiogram (10/01/16 ) Ziprasidone Inj (Geodon Inj) (10/01/16 15:00) Labs Laboratory Tests Test 10/01/16 14:20 White Blood Count 4.7 TH/MM3 Red Blood Count 4.34 MIL/MM3 Hemoglobin 13.4 GM/DL Hematocrit 41.2 % Mean Corpuscular Volume 94.8 FL Mean Corpuscular Hemoglobin 30.8 PG Mean Corpuscular Hemoglobin 32.5 % Concent Red Cell Distribution Width 13.2 % Platelet Count 132 TH/MM3 Mean Platelet Volume 10.4 FL Neutrophils (%) (Auto) 73.9 % Lymphocytes (%) (Auto) 16.4 % Monocytes (%) (Auto) 8.7 % Eosinophils (%) (Auto) 0.6 % Basophils (%) (Auto) 0.4 % Neutrophils # (Auto) 3.5 TH/MM3 Lymphocytes # (Auto) 0.8 TH/MM3 Monocytes # (Auto) 0.4 TH/MM3 Eosinophils # (Auto) 0.0 TH/MM3 Basophils # (Auto) 0.0 TH/MM3 CBC Comment DIFF FINAL Differential Comment Sodium Level 141 MEQ/L Potassium Level 3.9 MEQ/L Chloride Level 103 MEQ/L Carbon Dioxide Level 28.5 MEQ/L Anion Gap 10 MEQ/L Blood Urea Nitrogen 18 MG/DL Creatinine 1.23 MG/DL Estimat Glomerular Filtration 57 ML/MIN Rate Random Glucose 172 MG/DL Calcium Level 9.2 MG/DL Total Bilirubin 0.8 MG/DL Aspartate Amino Transf 32 U/L (AST/SGOT) Alanine Aminotransferase 25 U/L (ALT/SGPT) Alkaline Phosphatase 100 U/L Total Protein 7.1 GM/DL Albumin 3.5 GM/DL MDM Medical Decision Making Medical Screen Exam Complete: Yes Emergency Medical Condition: Yes Medical Record Reviewed: Yes Interpretation(s) ECG shows normal sinus rhythm at 80, possible early re-pole in V2, no other abnormalities. Differential Diagnosis Psychosis versus electrolyte abnormality versus worsening dementia Narrative Course Patient is a 76-year-old male sent here from his custodial because he was aggressive. Exam shows no acute abnormalities, he has no complaints at this time. Labs sent show no acute abnormalities. Patient became aggressive and did not want to stay in his room. Given Geodon. Patient medically cleared for psychiatric evaluation. Disposition per psychiatry. Diagnosis Primary Impression: Medical clearance for psychiatric admission Condition: Stable Marci Yancey MD October 01, 2016 13:57
[2016-10-01 14:29] LABS: AUTOMATED NEUTROPHIL # 3.5 TH/MM3 (1.8-7.7); BASOPHIL % 0.4 % (0.0-2.0); EOSINOPHIL % 0.6 % (0.0-4.0); HEMATOCRIT 41.2 % (39.0-51.0); HEMO FLAGS DIFF FINAL; LYMPH % 16.4 % (9.0-44.0); LYMPHOCYTE # 0.8 TH/MM3 (1.0-4.8); MEAN CELL VOLUME 94.8 FL (80.0-100.0); MEAN CORPUSCULAR HEMOGLOBIN 30.8 PG (27.0-34.0); MEAN CORPUSCULAR HGB CONC 32.5 % (32.0-36.0); MONO % 8.7 % (0.0-8.0); NEUT % 73.9 % (16.0-70.0); PLATELET COUNT 132 TH/MM3 (150-450); RED BLOOD COUNT 4.34 MIL/MM3 (4.50-5.90); RED CELL DISTRIBUTION WIDTH 13.2 % (11.6-17.2); WHITE BLOOD COUNT 4.7 TH/MM3 (4.0-11.0)
[2016-10-01 14:51] LABS: ALT (GPT) 25 U/L (12-78); ANION GAP 10 MEQ/L (5-15); AST (GOT) 32 U/L (15-37); BICARBONATE 28.5 MEQ/L (21.0-32.0); BLOOD UREA NITROGEN 18 MG/DL (7-18); CHLORIDE 103 MEQ/L (98-107); GLOMERULAR FILTRATION RATE 57 ML/MIN (>89); POTASSIUM 3.9 MEQ/L (3.5-5.1); SODIUM (NA) 141 MEQ/L (136-145)
[2016-10-01 14:52] LABS: ALKALINE PHOSPHATASE 100 U/L (45-117); TOTAL BILIRUBIN ADULT 0.8 MG/DL (0.2-1.0)
[2016-10-01] MEDS ORDERED: ZIPRASIDONE MESYLATE 20 MG VIAL IM ONE (15:00)
[2016-10-01 17:52] LABS: AMPHETAMINE, URINE NEG (NEG); BARBITURATES, URINE NEG (NEG); COCAINE, URINE NEG (NEG)
[2016-10-01 18:49] VITALS: BP 109/57; PULSE 78; RESP 24; TEMP 99; O2SAT 98
[2016-10-01] MEDS: LATANOPROST 0.005% OPHT SOLN 2.5 ML BTL EACH EYE SCH (22:12)
[2016-10-01] MEDS ORDERED: ALUMINUM/MAGNESIUM/SIMETH 30 ML CUP PO PRN (22:15)
[2016-10-01] MEDS ORDERED: MAGNESIUM HYDROXIDE SUSP 30 ML CUP PO PRN (22:15)
[2016-10-01] MEDS ORDERED: clonazePAM 0.5 MG TAB PO PRN (22:15)
[2016-10-01] MEDS ORDERED: ZIPRASIDONE MESYLATE 20 MG VIAL IM PRN (22:15)
[2016-10-01 22:30] VITALS: BP 123/69; PULSE 88; RESP 18; TEMP 97.6; O2SAT 97
[2016-10-02] MEDS: MEMANTINE HCL 10 MG TAB PO SCH ×3 (00:38→21:26)
[2016-10-02 05:42] VITALS: BP 103/55; PULSE 77; RESP 18; TEMP 97.1; O2SAT 97
[2016-10-02] MEDS ORDERED: ZIPRASIDONE MESYLATE 20 MG VIAL IM PRN (08:00)
--- NOTE | 2016-10-02 12:53 | HHI.HP ---
Provisional Diagnosis Admission Date October 01, 2016 at 22:05 [place] I. 1. Dementia of the Alzheimer type with behavioral disturbance [place] II. Deferred [place] V. GAF is 35 presently Certification of Person's Competence To Provide Express and Informed Consent I have personally examined Darrin oMnaco , a person being served at [facility] on, October 02, 2016 12:53. Express and informed consent means consent voluntarily given in writing, by a competent person, after sufficient explanation and disclosure of the subject matter involved to enable the person to make a knowing and willful decision without any element of force, fraud, deceit, duress, or other form of constraint or coercion. This person is 18 years of age or older, is not now known to be incompetent to consent to treatment with a guardian advocate, and does not have a health care surrogate or proxy currently making medical treatment decisions. I have found this person to be one of the following: [] Competent to provide express and informed consent, as defined above, for voluntary admission to this facility and is competent to provide express and informed consent for treatment. He/she has the consistent capacity to make well reasoned, willful, and knowing decisions concerning his or her medical or mental health treatment. The person fully and consistently understands the purpose of the admission for examination/placement and is fully capable of personally exercising all rights assured [place] [x] Incompetent to provide express and informed consent to voluntary admission, and this is incompetent to provide express and informed consent to treatment. The person must be transferred to involuntary status and a petition for a guardian advocate filed with the Circuit Court. [] Refusing to provide express and informed consent to voluntary admission but is competent to provide express and informed consent for treatment. The person must be discharged or transferred to involuntary status. Form shall be completed within 24 hours of a person's arrival at the receiving facility and filed in the clinical record of each person: 1. Admitted on a voluntary basis 2. Permitted to provide express and informed consent to his/her own treatment 3. Allowed to transfer from involuntary to voluntary status 4. Prior to permitting a person to consent to his or her own treatment after having been previously found incompetent to consent to treatment. History of Present Illness Capacity: Lacks Capacity HPI Mr. Monaco is a 76-year-old male with a history of dementia with behavioral disturbance who presents under a [facility] act from his [facility] alleging agitation there. Reviewing the electronic medical record, I note the patient was admitted in August of this year under Dr. Bob for dementia with behavioral disturbance. Patient seen and examined. Chart reviewed. Case discussed with nursing staff. On my examination today, the patient is presently calm but was reportedly agitated this morning; he was medicated with Geodon. He presents as somewhat watchful and guarded. He denies any AVH. He denies any suicidal or homicidal ideation. Affect is somewhat restricted and dysphoric. Mental status testing suggests cognitive impairment, as detailed below. He believes that he is in his dwelling and is unsure how he came to be here. Psychiatric interview is somewhat limited because of patient's cognitive impairment. Past psychiatric history: Patient is likely an unreliable historian. For example, the patient denies any history of psychiatric admissions even though he was just admitted within the last month under Dr. Bob. He denies any history of suicide attempts. Family history: Patient denies any family history of mental illness. Chemical dependency history: Patient denies any active substance use but does report a history of alcohol use. Social history: Patient believes that he is in his residence. He is and reports that he has 3 children, Louise, Norbert and Shane. He did not graduate high school. 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 He denies any history. Review of Systems ROS Limitations: Poor Historian Other Cognitive impairment limits ROS. Past Psych History Psychological trauma history No reported trauma history Violence risk - others (6 mos) Elevated. Patient with agitation in the setting of dementia. Violence risk - self (6 mos) Lower imminent risk. Substance Abuse History Drugs/Alcohol past 12 months See above Past Family Social History Coded Allergies: No Known Allergies (Unverified , 09/04/16) Past Medical History See electronic medical record Active Scripts Pravastatin (Pravachol)80 Mg Tab80 Mg PO HS #30 TAB Ref 0 Prov:Danny Bob MD 09/14/16 Latanoprost Opth Drops (Xalatan Opth Drops)0.005% Drops1 Drop EACH EYE HS #1 BOTTLE Ref 0 Prov:Danny Bob MD 09/14/16 Donepezil (Aricept)10 Mg Tab10 Mg PO HS #30 TAB Ref 0 Prov:Danny Bob MD 09/14/16 Reported Medications Ziprasidone Inj (Geodon Inj)20 Mg Inj40 Mg IM DAILY PRN (AGITATION) Maximum 40 mg daily 10/01/16 [Abh Gel] No Conflict Check1 Applic TOPICAL Q4-6H PRN (ANXIETY AND/OR AGITATION) 10/01/[address] (Depnoel HOWARD)250 Mg [id number] Mg PO TID #60 TAB Ref 0 10/01/16 Paroxetine (Paxil)10 Mg Tab10 Mg PO DAILY #30 TAB Ref 0 10/01/16 Alprazolam (Xanax)0.25 Mg Tab0.25 Mg PO TID Ref 0 10/01/16 Memantine (Namenda)10 Mg Tab10 Mg PO BID #30 TAB Ref 0 10/01/16 Quetiapine (Seroquel)25 Mg Tab25 Mg PO TID #60 TAB Ref 0 10/01/16 Discontinued Reported Medications Simvastatin 40 Mg Tab40 Mg PO HS #30 TAB Ref 0 09/04/16 Travoprost Opth Drops (Travatan Z Opth Drops)0.004 % Soln1 Drop EACH EYE HS #1 BOTTLE Ref 0 09/04/16 Brimonidine-Timolol Opth Drops (Combigan Opth Drops)0.2-0.5% Soln1 Drop EACH EYE Q12HR Ref 0 09/04/16 Discontinued Scripts Memantine (Namenda)5 Mg Tab5 Mg PO DAILY #30 TAB Ref 0 Prov:Danny Bob MD 09/14/16 Citalopram (Celexa)20 Mg Tab20 Mg PO DAILY #30 TAB Ref 0 Prov:Danny Bob MD 09/14/16 Current Medications Medications (Trade) Dose Ordered Sig/Steven Route Start Time Stop Time Status Last Admin (Tylenol) 650 mg Q4H PRN PO 10/01/16 22:15 (Milk Of Magnesia Liq) 30 ml DAILY PRN PO 10/01/16 22:15 (Mag-Al Plus Susp Liq) 30 ml Q6H PRN PO 10/01/16 22:15 (KlonoPIN) 0.5 mg Q12H PRN PO 10/01/16 22:15 10/02/16 07:43 (Xalatan 0.005% Opth Soln) 1 drop HS EACH EYE 10/01/16 22:12 (Pravachol) 80 mg HS PO 10/02/16 21:00 (Namenda) 10 mg BID PO 10/01/16 22:13 10/02/16 09:00 (Geodon Inj) 20 mg Q12H PRN IM 10/02/16 08:00 10/02/16 12:31 Family History See above Social History See above Patient's Strengths (min. 2) In a monitored setting. Verbally fluent. Physical Exam Physical examination completed by ED provider. On my examination today, the patient appears to be in no acute physical distress. No motor abnormalities noted. Laboratories and vital signs reviewed: Vital Signs Vital Signs Date Time Temp Pulse Resp B/P Pulse Ox O2 Delivery O2 Flow Rate FiO2 10/02/16 05:42 97.1 77 18 103/55 97 Lab Results Item Value Date Time White Blood Count 4.7 TH/MM3 10/01/16 1420 Hemoglobin 13.4 GM/DL 10/01/16 1420 Platelet Count 132 TH/MM3 L 10/01/16 1420 Sodium Level 141 MEQ/L 10/01/16 1420 Potassium Level 3.9 MEQ/L 10/01/16 1420 Chloride Level 103 MEQ/L 10/01/16 1420 Blood Urea Nitrogen 18 MG/DL 10/01/16 1420 Carbon Dioxide Level 28.5 MEQ/L 10/01/16 1420 Creatinine 1.23 MG/DL 10/01/16 1420 Aspartate Amino Transf (AST/SGOT) 32 U/L 10/01/16 1420 Alanine Aminotransferase (ALT/SGPT) 25 U/L 10/01/16 1420 Alkaline Phosphatase 100 U/L 10/01/16 1420 Vitamin B12 Level 456 PG/ML 09/06/16 1446 Thyroid Stimulating Hormone 3rd Gen 0.863 uIU/ML 09/06/16 1446 Urine Opiates Screen NEG 10/01/16 1724 Urine Barbiturates Screen NEG 10/01/16 1724 Urine Amphetamines Screen NEG 10/01/16 1724 Urine Benzodiazepines Screen NEG 10/01/16 1724 Urine Cocaine Screen NEG 10/01/16 1724 Urine Cannabinoids Screen NEG 10/01/16 1724 Thrombocytopenia is not new and is improved versus last value. Mental Status Examination Patient is in hospital go. He is well groomed. He is awake and alert and oriented to person in [place] but otherwise disoriented. His registration is 3 out of 3 in his recall is 0 out of 3 at 5 minutes. He spells the word world as WORND and is unable to spell it backwards. He is able to name 2 items but is unable to repeat a phrase. He can name the last 2 presidents but cannot name any before that. No abnormal motor movements noted. Speech is within normal limits for rate, tone and volume. By which and fund of knowledge seems reduced for age. Mood is somewhat dysphoric and affect is restricted. Thought process somewhat scattered consistent with dementia diagnosis. Somewhat guarded but no angela paranoia. Denies audiovisual hallucinations. Denies suicidal or homicidal ideation. Insight and judgment are poor. Assessment & Plan Problem List: (1) Dementia of Alzheimer's type with behavioral disturbance ICD Code: G30.8 Assessment & Plan This is a 76-year-old male with psychiatric history as detailed above who presents under a [place] act. Patient was allegedly agitated at his facility. The patient has a history of dementia with behavioral disturbance and has been agitated here on the unit. I will admit the patient to the inpatient psychiatric unit for safety, observation and stabilization. Admit inpatient. Involuntary status. I completed first opinion. Consult for second opinion. Request healthcare surrogate and guardian advocate. I do not see any medication list accompanying the patient from his facility on the chart. Most recently, the patient was prescribed Aricept and Namenda, which I will continue for cognitive impairment. I will also continue patient's Depakote 250 mg every 8 hours for now as the indication his seizure, but we will need to monitor his platelets to ensure that this is not the cause of his thrombocytopenia. I will resume patient's Seroquel 25 mg 3 times daily. Hold patient's Paxil as I am unsure if it is providing any clinical benefit at the low dose that it was prescribed last time. I will continue patient's statin. Patient is mildly hyperglycemic although his hemoglobin A1c was within normal limits last time. I will order Accu-Cheks and sliding scale and check an updated hemoglobin A1c. Haldol as needed for agitation, Benadryl as needed for EPS, melatonin as needed for sleep. Vitals every shift. Counselor to see. Disposition planning. Estimated length of stay: 7-9 days. Discharge Planning Pending psychiatric stabilization Request HC Surrog/Guard Advoc?: Yes Problem Qualifiers (1) Dementia of Alzheimer's type with behavioral disturbance: Qualified Code: G30.8 - Alzheimer's dementia with behavioral disturbance, unspecified timing of dementia onset Chino Steward MD October 02, 2016 12:53
[2016-10-02] MEDS: DIVALPROEX SODIUM DELAYED RELEASE 250 MG TAB PO SCH ×2 (13:00→21:26)
[2016-10-02] MEDS ORDERED: HALOPERIDOL 2 MG TAB PO PRN (13:00)
[2016-10-02] MEDS ORDERED: HALOPERIDOL LACTATE 5 MG/ML AMP IM PRN (13:00)
[2016-10-02] MEDS ORDERED: DEXTROSE 50% IN WATER 50 ML VIAL(D50) IV PUSH PRN (13:15)
[2016-10-02] MEDS ORDERED: GLUCAGON 1 MG/ML VIAL OTHER PRN (13:15)
[2016-10-02] MEDS ORDERED: diphenhydrAMINE HCL 50 MG/ML VIAL IM PRN (14:00)
--- NOTE | 2016-10-02 15:42 | EKG ---
Date Performed: 10/01/2016 Time Performed: 15:26:46 PTAGE: 76 years EKG: Sinus rhythm MARKED LEFT AXIS DEVIATION POSSIBLE RIGHT VENTRICULAR CONDUCTION DELAY ST ELEVATION, PROBABLY EARLY REPOLARIZATION ABNORMAL ECG NO PREVIOUS TRACING DOCTOR: Masoud Oglesby Interpretating Date/Time 10/02/2016 15:35:47
[2016-10-02] MEDS: INSULIN ASPART SUPPLEMENTAL SCALE SQ SCH ×2 (16:00→21:00)
[2016-10-02] MEDS: QUEtiapine FUMARATE 25 MG TAB PO SCH (17:00)
[2016-10-02 18:39] VITALS: BP 103/59; PULSE 79; RESP 16; TEMP 98.3; O2SAT 99
[2016-10-02] MEDS: PRAVASTATIN SOD 80 MG TAB PO SCH (21:25)
[2016-10-02] MEDS: DONEPEZIL HCL 5 MG TAB PO SCH (21:26)
[2016-10-02] MEDS: LATANOPROST 0.005% OPHT SOLN 2.5 ML BTL EACH EYE SCH (22:58)
[2016-10-03 05:46] VITALS: BP 128/60; PULSE 101; RESP 18; TEMP 99.2; O2SAT 98
[2016-10-03] MEDS: DIVALPROEX SODIUM DELAYED RELEASE 250 MG TAB PO SCH ×3 (05:46→20:48)
[2016-10-03] MEDS: INSULIN ASPART SUPPLEMENTAL SCALE SQ SCH ×4 (06:04→21:00)
[2016-10-03] MEDS: QUEtiapine FUMARATE 25 MG TAB PO SCH ×3 (09:00→16:51)
[2016-10-03] MEDS: MEMANTINE HCL 10 MG TAB PO SCH ×2 (09:00→20:48)
--- NOTE | 2016-10-03 12:24 | HHI.PYPN ---
Subjective Remarks This is a request for second opinion. Patient was seen, case discussed with nursing, and admission documentation reviewed. Patient is admitted for behavioral disturbance. He is alert and oriented times to with poor insight into his mental health and reasons for admission. Has been behaving well per nursing but had a small verbal outburst. Seen talking to himself per nursing. Denies auditory visual hallucinations. His compliant with his medications Objective Alert: Yes Strang: Person, Place Mood: Other (irritable) Affect: Restricted Memory Intact: Comment (not formally tested) Hallucinations: Auditory (denies) Delusions: No Delusion Type: Other (not elicited) Suicidal: Ideation (denies) Homicidal: Ideation (denies) Insight/Judgment Poor Vitals/IOs Vital Signs Date Time Temp Pulse Resp B/P Pulse Ox O2 Delivery O2 Flow Rate FiO2 10/03/16 05:46 99.2 101 18 128/60 98 Intake and Output 10/02/16 10/02/16 10/03/16 08:00 16:00 00:00 Intake Total 240 ml 360 ml 360 ml Balance 240 ml 360 ml 360 ml Assessment & Plan Problem List: (1) Dementia of Alzheimer's type with behavioral disturbance ICD Code: G30.8 Assessment & Plan I agree with the first opinion. Criteria include cognitive impairment and aggressive behavior before admission Justification for Cont. Inpt. Patient will decompensate in the less restrictive setting Request HC Surrog/Guard Advoc?: Yes Problem Qualifiers (1) Dementia of Alzheimer's type with behavioral disturbance: Qualified Code: G30.8 - Alzheimer's dementia with behavioral disturbance, unspecified timing of dementia onset Jayson Hartman DO October 03, 2016 12:24
[2016-10-03 18:00] VITALS: BP 112/65; PULSE 81; RESP 17; TEMP 97.5; O2SAT 97
[2016-10-03] MEDS: PRAVASTATIN SOD 80 MG TAB PO SCH (20:48)
[2016-10-03] MEDS: DONEPEZIL HCL 5 MG TAB PO SCH (20:48)
[2016-10-03] MEDS: LATANOPROST 0.005% OPHT SOLN 2.5 ML BTL EACH EYE SCH (20:48)
[2016-10-04] MEDS: DIVALPROEX SODIUM DELAYED RELEASE 250 MG TAB PO SCH ×3 (05:57→20:31)
[2016-10-04 06:13] VITALS: BP 134/62; PULSE 87; RESP 18; TEMP 97.9; O2SAT 98
[2016-10-04] MEDS: INSULIN ASPART SUPPLEMENTAL SCALE SQ SCH ×4 (06:35→20:35)
[2016-10-04] MEDS: QUEtiapine FUMARATE 25 MG TAB PO SCH ×3 (09:00→17:05)
[2016-10-04] MEDS: MEMANTINE HCL 10 MG TAB PO SCH ×2 (09:05→20:31)
--- NOTE | 2016-10-04 09:38 | HHI.PYPN ---
Subjective Remarks Patient was seen and case discussed with nursing. Patient is alert and oriented 2. Remains pleasant and corneal during the interview. Sometimes intrusive with other patients per nursing. Otherwise he is sleeping and eating well. Mood is "good." Denies suicidal ideation intent or plan Objective Alert: Yes [place]: Person, Place Mood: Calm Affect: Blunted Memory Intact: Comment (not formally tested) Hallucinations: Auditory (denies) Delusions: No Delusion Type: Other (not elicited) Suicidal: Ideation (denies) Homicidal: Ideation (denies) Insight/Judgment Poor Vitals/IOs Vital Signs Date Time Temp Pulse Resp B/P Pulse Ox O2 Delivery O2 Flow Rate FiO2 10/04/16 06:13 97.9 87 18 134/62 98 Intake and Output 10/03/16 10/03/16 10/04/16 08:00 16:00 00:00 Intake Total 0 ml 1920 ml Balance 0 ml 1920 ml Assessment & Plan Problem List: (1) Dementia of Alzheimer's type with behavioral disturbance ICD Code: G30.8 Assessment & Plan Continue current treatment plan Justification for Cont. Inpt. Patient will decompensate in a less restrictive setting Request HC Surrog/Guard Advoc?: Yes Problem Qualifiers (1) Dementia of Alzheimer's type with behavioral disturbance: Qualified Code: G30.8 - Alzheimer's dementia with behavioral disturbance, unspecified timing of dementia onset Jayson Hartman DO October 04, 2016 09:38
[2016-10-04 18:18] VITALS: BP 110/57; PULSE 86; RESP 18; TEMP 97.3
[2016-10-04] MEDS: PRAVASTATIN SOD 80 MG TAB PO SCH (20:31)
[2016-10-04] MEDS: DONEPEZIL HCL 5 MG TAB PO SCH (20:31)
[2016-10-04] MEDS: LATANOPROST 0.005% OPHT SOLN 2.5 ML BTL EACH EYE SCH (21:00)
[2016-10-05] MEDS: DIVALPROEX SODIUM DELAYED RELEASE 250 MG TAB PO SCH ×3 (05:47→22:07)
[2016-10-05 06:00] VITALS: BP 117/73; PULSE 88; RESP 18; TEMP 97; O2SAT 97
[2016-10-05] MEDS: INSULIN ASPART SUPPLEMENTAL SCALE SQ SCH ×4 (06:32→21:00)
[2016-10-05] MEDS: QUEtiapine FUMARATE 25 MG TAB PO SCH ×3 (09:00→17:05)
[2016-10-05] MEDS: MEMANTINE HCL 10 MG TAB PO SCH ×2 (09:00→22:07)
--- NOTE | 2016-10-05 11:58 | HHI.PYPN ---
Subjective Remarks Patient seen and examined. Chart reviewed. Case discussed with nursing staff who reports patient was growing agitated this morning. When staff endeavored to verbally redirect him, he reportedly became even more agitated and tried to attack staff, and it took 4 staff members to contain him and transfer him to the high-acuity unit for safety. He was medicated with Haldol and Benadryl IM PRN. At the time of my evaluation, patient has calmed. He is at his confused baseline. No signs of any sedation from the PRNs. He has a vague recollection of his outburst but cannot recall what he was upset about. No SI or HI. No side effects from medications. Late entry: I spoke with patient's at some length Wednesday evening when she came for visitation. We discussed the risks and benefits of ongoing hospitalization including the risk of fall, infection, etc. We discuss treatment plan including pharmacologic adjustments. Lengthy discussion about risks and benefits of psychotropics, including discussion of black box warning regarding increased risk of in demented elderly with atypical antipsychotics. reports patient has a history of vascular dementia. Review of Systems ROS Limitations: Poor Historian Except as stated in HPI: all other systems reviewed are Neg Objective Alert: Yes [place]: Person, Place Mood: Calm Affect: Blunted (remains blunted) Memory Intact: Comment (impaired on clinical exam) Hallucinations: Other (No AVH) Delusions: No Delusion Type: Other (no delusions) Suicidal: Ideation (no SI) Homicidal: Ideation (no HI) Insight/Judgment Poor Remarks No motor abnormalities noted. Grooming and hygiene fair. Labs Labs reviewed. 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 ICD Code: F01.51 Assessment & Plan Titrate Seroquel to 37.5mg TID. Titrate Haldol PRN to 3mg/dose. Transfer to high acuity unit for safety until behaviors are under more consistently good control. Continue other medications and care as ordered. Justification for Cont. Inpt. Impairment in safety. Impairment in reality construction as a consequence of his dementia. Medication changes in process. High risk for decompensation in a less restrictive environment. Discharge Planning Return to facility once psychiatrically stabilized. Request HC Surrog/Guard Advoc?: Yes Chino Steward MD October 05, 2016 11:58
[2016-10-05] MEDS ORDERED: PILL SPLITTER OTHER PRN (14:30)
[2016-10-05 17:35] VITALS: BP 100/59; PULSE 81; RESP 16; TEMP 97.7; O2SAT 98
[2016-10-05] MEDS ORDERED: HALOPERIDOL LACTATE 5 MG/ML AMP IM PRN (19:00)
[2016-10-05] MEDS: LATANOPROST 0.005% OPHT SOLN 2.5 ML BTL EACH EYE SCH (21:00)
[2016-10-05] MEDS: DONEPEZIL HCL 5 MG TAB PO SCH (22:07)
[2016-10-05] MEDS: PRAVASTATIN SOD 80 MG TAB PO SCH (22:07)
[2016-10-06] MEDS: DIVALPROEX SODIUM DELAYED RELEASE 250 MG TAB PO SCH ×3 (05:30→21:30)
[2016-10-06] MEDS: INSULIN ASPART SUPPLEMENTAL SCALE SQ SCH ×4 (05:35→21:00)
[2016-10-06 05:48] VITALS: BP 110/72; PULSE 91; RESP 17; TEMP 97.3; O2SAT 97
[2016-10-06] MEDS: QUEtiapine FUMARATE 25 MG TAB PO SCH ×3 (09:09→18:00)
[2016-10-06] MEDS: MEMANTINE HCL 10 MG TAB PO SCH ×2 (09:09→21:31)
--- NOTE | 2016-10-06 09:48 | HHI.PYPN ---
Subjective Remarks Patient seen and examined with counselor and nurse. Chart reviewed. Case discussed with nurse, counselor and recreational therapist in treatment team. Nurse notes that the patient has had no further behavioral problem since arriving on the high acuity unit. Counselor reports that the patient may return to [facility] once stable. Recreation therapist notes that the patient has not participated in groups. On my examination today, the patient is calm and cooperative. He is at his confused baseline. He cannot recall our meeting previously. He vaguely remembers his behavioral outburst yesterday and says "it must've been some kind of misunderstanding." No SI or HI. No side effects from medications. Review of Systems ROS Limitations: Poor Historian Except as stated in HPI: all other systems reviewed are Neg Objective Alert: Yes [place]: Person, Place Mood: Calm Affect: Blunted Memory Intact: Comment (remains impaired) Hallucinations: Other (No AVH) Delusions: No Delusion Type: Other (no delusions) Suicidal: Ideation (no suicidal ideation) Homicidal: Ideation (no homicidal ideation) Insight/Judgment Poor Remarks No motor abnormalities noted Labs Labs reviewed Vitals/IOs Vital Signs Date Time Temp Pulse Resp B/P Pulse Ox O2 Delivery O2 Flow Rate FiO2 10/06/16 05:48 97.3 91 17 110/72 97 Intake and Output 10/05/16 10/05/16 10/05/16 07:59 15:59 23:59 Intake Total 0 ml Balance 0 ml Assessment & Plan Problem List: (1) 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 Continue Seroquel as ordered. Continue Depakote as ordered with plans to check a Depakote and ammonia level tomorrow morning. Continue Aricept and Namenda. Continue to monitor on the high acuity unit. We may try to transfer back to [facility] if patient's behavior remains in good control; alternatively, we may simply discharge directly from the high acuity unit depending on when his facility is willing to accept him back. Continue other medications and care as ordered. Justification for Cont. Inpt. Monitoring for impairments in safety. Impairments in reality construction as a consequence of his dementia. High risk for decompensation in a less restrictive environment. Discharge Planning Return to [facility] following period of behavioral stability. Request HC Surrog/Guard Advoc?: Yes Chino Steward MD October 06, 2016 09:48
[2016-10-06 18:30] VITALS: BP 124/69; PULSE 91; RESP 16; TEMP 98.3; O2SAT 95
[2016-10-06] MEDS: LATANOPROST 0.005% OPHT SOLN 2.5 ML BTL EACH EYE SCH (21:00)
[2016-10-06] MEDS: PRAVASTATIN SOD 80 MG TAB PO SCH (21:30)
[2016-10-06] MEDS: DONEPEZIL HCL 5 MG TAB PO SCH (21:30)
[2016-10-07 05:55] VITALS: BP 152/89; PULSE 91; RESP 18; TEMP 97.9; O2SAT 99
[2016-10-07] MEDS: DIVALPROEX SODIUM DELAYED RELEASE 250 MG TAB PO SCH ×3 (06:28→20:24)
[2016-10-07] MEDS: INSULIN ASPART SUPPLEMENTAL SCALE SQ SCH ×4 (06:29→21:00)
[2016-10-07] MEDS: MEMANTINE HCL 10 MG TAB PO SCH ×2 (08:24→20:24)
[2016-10-07] MEDS: QUEtiapine FUMARATE 25 MG TAB PO SCH ×3 (08:24→17:51)
--- NOTE | 2016-10-07 13:59 | HHI.PYPN ---
Subjective Remarks Patient seen and examined. Chart reviewed. Case discussed with nursing staff. No reported behavioral issues overnight. On my examination today, I find the patient dozing in his room. He is calm and pleasant. He is oriented to person only. No internal stimulation or other evidence psychosis. No side effects from medications. Review of Systems ROS Limitations: Poor Historian Except as stated in HPI: all other systems reviewed are Neg Objective Alert: Yes [place]: Person Mood: Calm Affect: Euthymic Memory Intact: Comment (remains impaired) Hallucinations: Other (No AVH) Delusions: No Delusion Type: Other (No delusional material) Suicidal: Ideation (No SI) Homicidal: Ideation (No HI) Insight/Judgment Poor Remarks No motoric abnormalities noted. Speech wnl for rate, tone, volume. Labs Test 10/07/16 06:50 Ammonia LESS THAN 10 MCMOL/L Valproic Acid (Depakene) Level 63 MCG/ML Labs reviewed. VPA level within therapeutic range. 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 Continue to monitor on high acuity unit. If behavior remains in control overnight, will plan to have facility come eval pt for return to facility. Continue other medications and care as ordered. Justification for Cont. Inpt. High risk for decompensation in a restrictive environment Discharge Planning Return to facility once stabilized, hopefully before the weekend. Request HC Surrog/Guard Advoc?: Yes Chino Steward MD October 07, 2016 13:59
[2016-10-07 17:17] VITALS: BP 88/50; PULSE 91; RESP 18; TEMP 97.8; O2SAT 96
[2016-10-07] MEDS: DONEPEZIL HCL 5 MG TAB PO SCH (20:24)
[2016-10-07] MEDS: PRAVASTATIN SOD 80 MG TAB PO SCH (20:24)
[2016-10-07] MEDS: LATANOPROST 0.005% OPHT SOLN 2.5 ML BTL EACH EYE SCH (21:00)
[2016-10-08] MEDS: DIVALPROEX SODIUM DELAYED RELEASE 250 MG TAB PO SCH ×4 (05:54→20:48)
[2016-10-08 06:04] VITALS: BP 98/58; PULSE 74; RESP 18; TEMP 97.4; O2SAT 100
[2016-10-08] MEDS: INSULIN ASPART SUPPLEMENTAL SCALE SQ SCH ×4 (06:34→21:00)
[2016-10-08] MEDS: QUEtiapine FUMARATE 25 MG TAB PO SCH ×3 (09:12→18:00)
[2016-10-08] MEDS: MEMANTINE HCL 10 MG TAB PO SCH ×2 (09:12→20:49)
--- NOTE | 2016-10-08 10:25 | HHI.PYPN ---
Subjective Remarks Patient seen and case discussed with nursing staff. Chart reviewed. Per nursing staff, patient has been no behavioral problem. For me today, the patient is in good spirits. He remains at his confused baseline. No problematic behaviors noted. No side effects from medications. No physical complaints. Review of Systems ROS Limitations: Poor Historian Except as stated in HPI: all other systems reviewed are Neg Objective Alert: Yes [place]: Person Mood: Calm Affect: Euthymic (remains euthymic) Memory Intact: Comment (remains impaired) Hallucinations: Other (None) Delusions: No Delusion Type: Other (None elicited) Suicidal: Ideation (No SI) Homicidal: Ideation (No HI) Insight/Judgment Poor Remarks No motor abnormalities noted. Labs Labs reviewed. No new labs. 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 Continue to monitor on the inpatient unit. Continue other medications and care as ordered. Patient's case was presented to the [place] act court and the case was placed in continuance for 4 weeks. Justification for Cont. Inpt. High risk for decompensation in a less restrictive environment until return to facility can be arranged. Discharge Planning I have asked counselor to reach out the patient's facility to discuss having him come out of and evaluate the patient for potential return there end of this week or beginning of next. Request HC Surrog/Guard Advoc?: Yes Chino Steward MD October 08, 2016 10:25
[2016-10-08 13:09] VITALS: BP 90/66; PULSE 88; RESP 18; O2SAT 99
[2016-10-08 16:45] VITALS: BP 128/73; PULSE 85; RESP 18; TEMP 98.4; O2SAT 100
[2016-10-08] MEDS: LATANOPROST 0.005% OPHT SOLN 2.5 ML BTL EACH EYE SCH (20:47)
[2016-10-08] MEDS: DONEPEZIL HCL 5 MG TAB PO SCH (20:48)
[2016-10-08] MEDS: PRAVASTATIN SOD 80 MG TAB PO SCH (20:49)
[2016-10-08] MEDS: HALOPERIDOL 2 MG TAB PO PRN (22:57)
[2016-10-09] MEDS: DIVALPROEX SODIUM DELAYED RELEASE 250 MG TAB PO SCH ×3 (05:09→20:47)
[2016-10-09] MEDS: INSULIN ASPART SUPPLEMENTAL SCALE SQ SCH ×4 (05:20→20:08)
[2016-10-09 05:33] VITALS: BP 163/79; PULSE 90; RESP 18; TEMP 97.9; O2SAT 100
[2016-10-09] MEDS: HALOPERIDOL 2 MG TAB PO PRN (05:41)
[2016-10-09] MEDS: diphenhydrAMINE HCL 25 MG CAP PO PRN (05:41)
--- NOTE | 2016-10-09 09:18 | HHI.PYPN ---
Subjective Remarks Patient seen and examined with nurse. Chart reviewed. Case discussed with nursing staff who reports patient was somewhat irritated overnight. Patient was apparently upset by the loud noise from the day area. Received Haldol PRN. I find the patient wandering around the unit. He appears fairly confused as at baseline. He cannot locate his room, and the nurse and I redirect him to it. Once there, he is calm and quite pleasant on examination. He is easy- going and in good spirits generally. No evidence of any irritation. No SI or HI. Hopeful to return to [facility] soon. Denies side effects from medications. Review of Systems ROS Limitations: Poor Historian Except as stated in HPI: all other systems reviewed are Neg Objective Alert: Yes [place]: Person Mood: Calm Affect: Euthymic Memory Intact: Comment (Impaired on clinical exam) Hallucinations: Other (None) Delusions: No Delusion Type: Other (No delusions) Suicidal: Ideation (No SI) Homicidal: Ideation (No HI) Insight/Judgment Poor Remarks No motor abnormalities noted. Speech wnl for rate, tone, volume. Grooming and hygiene fair. Labs Labs reviewed. 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 unit as milieu is more appropriate for this patient with significant cognitive impairment. BPs have been running low, and so I am loath to titrate Seroquel to target poor sleep and nocturnal agitation. I will instead adjust dosing times to 25/50/50mg in hopes of improving these issues. If this is unsuccessful, to consider switching to a different antipsychotic. Continue to monitor on inpatient unit. Continue other medications and care as ordered. Case signed out to Dr. Bob, who will be covering this patient in my absence. Justification for Cont. Inpt. Medication changes. Impairment in reality construction as a consequence of dementia. High risk for decompensation in a less restrictive environment. Discharge Planning Return to [facility], hopefully within the next week. Request HC Surrog/Guard Advoc?: Yes Chino Steward MD October 09, 2016 09:18
[2016-10-09] MEDS: QUEtiapine FUMARATE 25 MG TAB PO SCH ×3 (09:39→20:46)
[2016-10-09] MEDS: MEMANTINE HCL 10 MG TAB PO SCH ×2 (09:39→20:44)
[2016-10-09] MEDS: PRAVASTATIN SOD 80 MG TAB PO SCH (20:44)
[2016-10-09] MEDS: DONEPEZIL HCL 5 MG TAB PO SCH (20:44)
[2016-10-09] MEDS: LATANOPROST 0.005% OPHT SOLN 2.5 ML BTL EACH EYE SCH (20:45)
[2016-10-10] MEDS: DIVALPROEX SODIUM DELAYED RELEASE 250 MG TAB PO SCH ×3 (05:18→21:00)
[2016-10-10] MEDS: INSULIN ASPART SUPPLEMENTAL SCALE SQ SCH ×4 (06:29→21:00)
[2016-10-10 06:42] VITALS: BP 107/58; PULSE 82; RESP 15; TEMP 97.8; O2SAT 97
--- NOTE | 2016-10-10 09:44 | HHI.PYPN ---
Subjective Remarks Patient seen and examined with nurse. Chart reviewed. Case discussed with nursing staff reports patient has been no behavioral problem since returning from 0 to the geropsychiatric unit. On my examination today, the patient is calm and pleasant. He is oriented to person only. He gives the year as 0. He has no physical complaints. No side effects from medications. Review of Systems ROS Limitations: Poor Historian Except as stated in HPI: all other systems reviewed are Neg Objective Alert: Yes [place]: Person Mood: Calm Affect: Euthymic (remains euthymic) Memory Intact: Comment (remains impaired) Hallucinations: Other (None) Delusions: No Delusion Type: Other (no delusions elicited) Suicidal: Ideation (No SI) Homicidal: Ideation (No HI) Insight/Judgment Poor Remarks No motor abnormalities noted Labs Labs reviewed. 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 Patient's agitation is presently well controlled. Continue Aricept, Namenda and Depakote. Continue to monitor on the inpatient unit. Continue other medications and care as ordered. Justification for Cont. Inpt. High risk for decompensation in a less restrictive environment. Discharge Planning Return to facility once facility has agreed to take him back. Request HC Surrog/Guard Advoc?: Yes Chino Steward MD October 10, 2016 09:44
[2016-10-10] MEDS: QUEtiapine FUMARATE 25 MG TAB PO SCH ×3 (10:28→21:00)
[2016-10-10] MEDS: MEMANTINE HCL 10 MG TAB PO SCH ×2 (10:28→21:00)
[2016-10-10 19:19] VITALS: BP 97/58; PULSE 86; TEMP 98.5; O2SAT 98
[2016-10-10] MEDS: LATANOPROST 0.005% OPHT SOLN 2.5 ML BTL EACH EYE SCH (21:00)
[2016-10-10] MEDS: PRAVASTATIN SOD 80 MG TAB PO SCH (21:00)
[2016-10-10] MEDS: DONEPEZIL HCL 5 MG TAB PO SCH (21:00)
[2016-10-11 05:38] VITALS: BP 141/65; PULSE 66; RESP 16; TEMP 97.9; O2SAT 94
[2016-10-11] MEDS: DIVALPROEX SODIUM DELAYED RELEASE 250 MG TAB PO SCH ×3 (06:05→20:32)
[2016-10-11] MEDS: INSULIN ASPART SUPPLEMENTAL SCALE SQ SCH ×4 (06:05→20:34)
[2016-10-11] MEDS: HALOPERIDOL 2 MG TAB PO PRN (09:01)
[2016-10-11] MEDS: QUEtiapine FUMARATE 25 MG TAB PO SCH ×3 (09:01→20:36)
[2016-10-11] MEDS: MEMANTINE HCL 10 MG TAB PO SCH ×2 (09:01→20:32)
--- NOTE | 2016-10-11 12:32 | HHI.PYPN ---
Subjective Remarks Patient was seen today for psychiatric reevaluation, patient is irritable, poorly cooperative, oppositional, disoriented in time and place, he says that we are in 1942," in a place close to my house, he denies suicidal or homicidal ideation, he denies visual and auditory hallucinations, no agitation, no aggressive behavior reports. Patient is compliant with medications. Review of Systems Other No somatic complaints Objective Alert: Yes [place]: Person Mood: Angry Affect: Other (irritable) Memory Intact: Comment (remains impaired) Hallucinations: Other (None) Delusions: No Delusion Type: Other (no delusions elicited) Suicidal: Ideation (No SI) Homicidal: Ideation (No HI) Insight/Judgment Poor Vitals/IOs Vital Signs Date Time Temp Pulse Resp B/P Pulse Ox O2 Delivery O2 Flow Rate FiO2 10/11/16 05:38 97.9 66 16 141/65 94 Intake and Output 10/10/16 10/10/16 10/11/16 08:00 16:00 00:00 Intake Total 240 ml 960 ml Balance 240 ml 960 ml Assessment & Plan Problem List: (1) 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 Inpt. Patient is to continue current level of care due to increased risk of decompensation. Request HC Surrog/Guard Advoc?: Yes Hema Cortez MD October 11, 2016 12:32
[2016-10-11 20:27] VITALS: BP 144/86; PULSE 90; RESP 16; O2SAT 98
[2016-10-11] MEDS: PRAVASTATIN SOD 80 MG TAB PO SCH (20:32)
[2016-10-11] MEDS: DONEPEZIL HCL 5 MG TAB PO SCH (20:32)
[2016-10-11] MEDS: LATANOPROST 0.005% OPHT SOLN 2.5 ML BTL EACH EYE SCH (20:33)
[2016-10-12] MEDS: DIVALPROEX SODIUM DELAYED RELEASE 250 MG TAB PO SCH ×3 (05:00→21:13)
[2016-10-12 05:32] VITALS: BP 85/50; PULSE 79; RESP 18; TEMP 97.1
[2016-10-12] MEDS: INSULIN ASPART SUPPLEMENTAL SCALE SQ SCH ×4 (06:18→21:00)
[2016-10-12] MEDS: MEMANTINE HCL 10 MG TAB PO SCH ×2 (08:40→21:13)
[2016-10-12] MEDS: QUEtiapine FUMARATE 25 MG TAB PO SCH ×3 (09:00→21:13)
--- NOTE | 2016-10-12 16:12 | HHI.PYPN ---
Subjective Remarks Patient seen in day room with floor staff, patient calm continues confused though somewhat isolating and guarded. Will increase scheduled Seroquel to 50 mg 3 times a day. Continue to work on placement issues Review of Systems Except as stated in HPI: all other systems reviewed are Neg Objective Alert: Yes [place]: Person Mood: Angry Affect: Other (irritable) Memory Intact: Comment (remains impaired) Hallucinations: Other (None) Delusions: No Delusion Type: Other (no delusions elicited) Suicidal: Ideation (No SI) Homicidal: Ideation (No HI) Insight/Judgment Poor Vitals/IOs Vital Signs Date Time Temp Pulse Resp B/P Pulse Ox O2 Delivery O2 Flow Rate FiO2 10/12/16 05:32 97.1 79 18 85/50 10/11/16 20:27 98 Intake and Output 10/11/16 10/11/16 10/12/16 08:00 16:00 00:00 Intake Total 120 ml 600 ml 480 ml Balance 120 ml 600 ml 480 ml Assessment & Plan Problem List: (1) 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 Inpt. At this time patient would decompensate if placed in the lower level of care Discharge Planning To be determined Request HC Surrog/Guard Advoc?: Yes Danny Bob MD October 12, 2016 16:12
[2016-10-12 19:40] VITALS: BP 111/68; PULSE 91; RESP 18; TEMP 97.6; O2SAT 100
[2016-10-12] MEDS: DONEPEZIL HCL 5 MG TAB PO SCH (21:13)
[2016-10-12] MEDS: LATANOPROST 0.005% OPHT SOLN 2.5 ML BTL EACH EYE SCH (21:13)
[2016-10-12] MEDS: PRAVASTATIN SOD 80 MG TAB PO SCH (21:13)
[2016-10-12] MEDS: MELATONIN 5 MG TAB PO PRN (21:14)
[2016-10-13] MEDS: DIVALPROEX SODIUM DELAYED RELEASE 250 MG TAB PO SCH ×3 (05:01→20:45)
[2016-10-13 05:14] VITALS: BP 121/58; PULSE 79; RESP 16; TEMP 98.5; O2SAT 98
[2016-10-13] MEDS: INSULIN ASPART SUPPLEMENTAL SCALE SQ SCH ×4 (06:34→20:48)
[2016-10-13] MEDS: QUEtiapine FUMARATE 25 MG TAB PO SCH ×3 (08:00→20:53)
[2016-10-13] MEDS: MEMANTINE HCL 10 MG TAB PO SCH ×2 (09:14→20:46)
--- NOTE | 2016-10-13 13:08 | HHI.PYPN ---
Subjective Remarks Met with patient's and [id number] and counselor Eda, chart reviewed. and her [id number] are showing good insight into the devastation of her husbands disease the inability for him to return home. It appears Ary fonseca is still assessing this gentleman. Patient then seen in the dayroom with floor staff, he was, pleasant with me, compliant medications, though diffusely confused in all 4 spheres Review of Systems Except as stated in HPI: all other systems reviewed are Neg Objective Alert: Yes [place]: Person Mood: Angry Affect: Other (irritable) Memory Intact: Comment (remains impaired) Hallucinations: Other (None) Delusions: No Delusion Type: Other (no delusions elicited) Suicidal: Ideation (No SI) Homicidal: Ideation (No HI) Insight/Judgment Poor Vitals/IOs Vital Signs Date Time Temp Pulse Resp B/P Pulse Ox O2 Delivery O2 Flow Rate FiO2 10/13/16 05:14 98.5 79 16 121/58 98 Intake and Output 10/12/16 10/12/16 10/13/16 08:00 16:00 00:00 Intake Total 600 ml 2400 ml Balance 600 ml 2400 ml Assessment & Plan Problem List: (1) 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 Compliant medications Justification for Cont. Inpt. At this time patient will decompensate if placed in a lower level of care Discharge Planning To be determined Request HC Surrog/Guard Advoc?: Yes Danny Bob MD October 13, 2016 13:08
[2016-10-13 19:36] VITALS: BP 132/74; PULSE 106; RESP 16; TEMP 97.6; O2SAT 98
[2016-10-13] MEDS: diphenhydrAMINE HCL 25 MG CAP PO PRN (20:45)
[2016-10-13] MEDS: PRAVASTATIN SOD 80 MG TAB PO SCH (20:45)
[2016-10-13] MEDS: LATANOPROST 0.005% OPHT SOLN 2.5 ML BTL EACH EYE SCH (20:46)
[2016-10-13] MEDS: DONEPEZIL HCL 5 MG TAB PO SCH (20:46)
[2016-10-14] MEDS: MELATONIN 5 MG TAB PO PRN (00:05)
[2016-10-14] MEDS: DIVALPROEX SODIUM DELAYED RELEASE 250 MG TAB PO SCH ×3 (04:56→21:11)
[2016-10-14 05:40] VITALS: BP 133/65; PULSE 75; RESP 17; TEMP 97.5; O2SAT 99
[2016-10-14] MEDS: INSULIN ASPART SUPPLEMENTAL SCALE SQ SCH ×4 (06:15→21:00)
[2016-10-14] MEDS: QUEtiapine FUMARATE 25 MG TAB PO SCH ×3 (09:44→22:17)
[2016-10-14] MEDS: MEMANTINE HCL 10 MG TAB PO SCH ×2 (09:44→21:10)
--- NOTE | 2016-10-14 10:29 | HHI.PYPN ---
Subjective Remarks Patient seen in dayroom with floor staff, chart review, patient compliant medications. Patient continues confused demented though no significant pain or problems at this time. For now continue treatment Review of Systems Except as stated in HPI: all other systems reviewed are Neg Objective Alert: Yes [place]: Person Mood: Angry Affect: Other (irritable) Memory Intact: Comment (remains impaired) Hallucinations: Other (None) Delusions: No Delusion Type: Other (no delusions elicited) Suicidal: Ideation (No SI) Homicidal: Ideation (No HI) Insight/Judgment Very poor Vitals/IOs Vital Signs Date Time Temp Pulse Resp B/P Pulse Ox O2 Delivery O2 Flow Rate FiO2 10/14/16 05:40 97.5 75 17 133/65 99 Intake and Output 10/13/16 10/13/16 10/14/16 08:00 16:00 00:00 Intake Total 1200 ml Balance 1200 ml Assessment & Plan Problem List: (1) 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 Compliant medications Justification for Cont. Inpt. At this time patient will decompensate placed in a lower level of care Discharge Planning To be determined Request HC Surrog/Guard Advoc?: Yes Danny Bob MD October 14, 2016 10:29
[2016-10-14 16:00] VITALS: BP 115/65; PULSE 84; RESP 17; TEMP 97.2; O2SAT 100
[2016-10-14] MEDS: DONEPEZIL HCL 5 MG TAB PO SCH (21:10)
[2016-10-14] MEDS: LATANOPROST 0.005% OPHT SOLN 2.5 ML BTL EACH EYE SCH (21:11)
[2016-10-14] MEDS: PRAVASTATIN SOD 80 MG TAB PO SCH (21:11)
[2016-10-15] MEDS: DIVALPROEX SODIUM DELAYED RELEASE 250 MG TAB PO SCH ×3 (05:01→20:34)
[2016-10-15 05:31] VITALS: BP 105/66; PULSE 68; RESP 18; TEMP 97.5
[2016-10-15] MEDS: INSULIN ASPART SUPPLEMENTAL SCALE SQ SCH ×4 (06:21→21:00)
[2016-10-15] MEDS: MEMANTINE HCL 10 MG TAB PO SCH ×2 (09:38→20:35)
[2016-10-15] MEDS: QUEtiapine FUMARATE 25 MG TAB PO SCH ×4 (09:38→22:00)
--- NOTE | 2016-10-15 12:22 | HHI.PYPN ---
Subjective Remarks Patient seen in dayroom floor staff, calm with me though staff states patient showed some increased anger and irritability when visited by staff from [facility]. Will increase Seroquel to 50 mg 4 times a day Review of Systems Except as stated in HPI: all other systems reviewed are Neg Objective Alert: Yes [place]: Person Mood: Angry Affect: Other (irritable) Memory Intact: Comment (remains impaired) Hallucinations: Other (None) Delusions: No Delusion Type: Other (no delusions elicited) Suicidal: Ideation (No SI) Homicidal: Ideation (No HI) Insight/Judgment Very poor Vitals/IOs Vital Signs Date Time Temp Pulse Resp B/P Pulse Ox O2 Delivery O2 Flow Rate FiO2 10/15/16 05:31 97.5 68 18 105/66 10/14/16 16:00 100 Intake and Output 10/14/16 10/14/16 10/15/16 08:00 16:00 00:00 Intake Total 360 ml Balance 360 ml Assessment & Plan Problem List: (1) 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 Inpt. At this time patient will decompensate if placed in a lower level of care Discharge Planning To be determined Request HC Surrog/Guard Advoc?: Yes Danny Bob MD October 15, 2016 12:21
[2016-10-15 17:45] VITALS: BP 117/60; PULSE 81; RESP 18; TEMP 97.7; O2SAT 100
[2016-10-15] MEDS: DONEPEZIL HCL 5 MG TAB PO SCH (20:34)
[2016-10-15] MEDS: LATANOPROST 0.005% OPHT SOLN 2.5 ML BTL EACH EYE SCH (20:35)
[2016-10-15] MEDS: PRAVASTATIN SOD 80 MG TAB PO SCH (20:35)
[2016-10-16] MEDS: DIVALPROEX SODIUM DELAYED RELEASE 250 MG TAB PO SCH ×3 (05:15→21:00)
[2016-10-16 05:43] VITALS: BP 106/70; PULSE 83; RESP 16; TEMP 98.8; O2SAT 99
[2016-10-16] MEDS: INSULIN ASPART SUPPLEMENTAL SCALE SQ SCH ×4 (06:34→21:00)
[2016-10-16] MEDS: QUEtiapine FUMARATE 25 MG TAB PO SCH ×4 (09:29→21:22)
[2016-10-16] MEDS: MEMANTINE HCL 10 MG TAB PO SCH ×2 (09:29→21:00)
--- NOTE | 2016-10-16 10:22 | HHI.PYPN ---
Subjective Remarks Patient seen in day room the floor staff, patient somewhat calmer today though continues markedly confused disoriented. Patient overall compliant medications though he did refuse 10 PM Seroquel dose last night Review of Systems Except as stated in HPI: all other systems reviewed are Neg Objective Alert: Yes [place]: Person Mood: Angry Affect: Other (irritable) Memory Intact: Comment (remains impaired) Hallucinations: Other (None) Delusions: No Delusion Type: Other (no delusions elicited) Suicidal: Ideation (No SI) Homicidal: Ideation (No HI) Insight/Judgment Very poor Vitals/IOs Vital Signs Date Time Temp Pulse Resp B/P Pulse Ox O2 Delivery O2 Flow Rate FiO2 10/16/16 05:43 98.8 83 16 106/70 99 Intake and Output 10/15/16 10/15/16 10/16/16 08:00 16:00 00:00 Intake Total 240 ml 240 ml 960 ml Balance 240 ml 240 ml 960 ml Assessment & Plan Problem List: (1) 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 Will have staff trimmed patient's fingernails Justification for Cont. Inpt. At this time patient will decompensate if placed in a lower level of care Discharge Planning To be determined Request HC Surrog/Guard Advoc?: Yes Danny Bob MD October 16, 2016 10:21
[2016-10-16 17:45] VITALS: BP 119/60; PULSE 89; RESP 18; TEMP 97.6; O2SAT 99
[2016-10-16] MEDS: DONEPEZIL HCL 5 MG TAB PO SCH (21:00)
[2016-10-16] MEDS: LATANOPROST 0.005% OPHT SOLN 2.5 ML BTL EACH EYE SCH (21:00)
[2016-10-16] MEDS: PRAVASTATIN SOD 80 MG TAB PO SCH (21:00)
[2016-10-17] MEDS: DIVALPROEX SODIUM DELAYED RELEASE 250 MG TAB PO SCH ×3 (05:00→20:37)
[2016-10-17 05:26] VITALS: BP 138/76; PULSE 96; RESP 16; TEMP 97.9; O2SAT 99
[2016-10-17] MEDS: INSULIN ASPART SUPPLEMENTAL SCALE SQ SCH ×4 (06:38→20:38)
[2016-10-17] MEDS: MEMANTINE HCL 10 MG TAB PO SCH ×2 (08:46→20:37)
[2016-10-17] MEDS: QUEtiapine FUMARATE 25 MG TAB PO SCH ×4 (08:46→20:44)
--- NOTE | 2016-10-17 12:28 | HHI.PYPN ---
Subjective Remarks Patient was seen and case discussed with nursing. Patient remains confused claiming he has been here for months and only has been 2 weeks. He admits to having problems with his memory. Alert and oriented 2. Largely seclusive. Compliant with medications. Behaving well on the unit Objective Alert: Yes [place]: Person, Place Mood: Anxious Affect: Restricted Memory Intact: Comment (remains impaired) Hallucinations: Other (None) Delusions: No Delusion Type: Other (no delusions elicited) Suicidal: Ideation (No SI) Homicidal: Ideation (No HI) Insight/Judgment Poor Vitals/IOs Vital Signs Date Time Temp Pulse Resp B/P Pulse Ox O2 Delivery O2 Flow Rate FiO2 10/17/16 05:26 97.9 96 16 138/76 99 Intake and Output 10/16/16 10/16/16 10/17/16 08:00 16:00 00:00 Intake Total 840 ml 1080 ml 1380 ml Balance 840 ml 1080 ml 1380 ml Assessment & Plan Problem List: (1) 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 Inpt. Patient will decompensate in a less restrictive setting Request HC Surrog/Guard Advoc?: Yes Jayson Hartman DO October 17, 2016 12:28
[2016-10-17 18:00] VITALS: BP 112/71; PULSE 92; TEMP 97.8; O2SAT 99
[2016-10-17] MEDS: PRAVASTATIN SOD 80 MG TAB PO SCH (20:37)
[2016-10-17] MEDS: DONEPEZIL HCL 5 MG TAB PO SCH (20:37)
[2016-10-17] MEDS: LATANOPROST 0.005% OPHT SOLN 2.5 ML BTL EACH EYE SCH (20:38)
[2016-10-18] MEDS: DIVALPROEX SODIUM DELAYED RELEASE 250 MG TAB PO SCH ×3 (05:26→20:21)
[2016-10-18 05:56] VITALS: BP 103/62; PULSE 67; RESP 18; TEMP 97.4; O2SAT 100
[2016-10-18] MEDS: INSULIN ASPART SUPPLEMENTAL SCALE SQ SCH ×4 (06:40→21:00)
[2016-10-18] MEDS: MEMANTINE HCL 10 MG TAB PO SCH ×2 (08:53→20:21)
[2016-10-18] MEDS: QUEtiapine FUMARATE 25 MG TAB PO SCH ×4 (08:53→20:22)
--- NOTE | 2016-10-18 12:51 | HHI.PYPN ---
Subjective Remarks Patient was seen and case discussed with nursing. Today patient is guarded and very suspicious of my position and background. Started getting angry and had to redirect the conversation. Appears confused for the reasons of admission and the role the staff here. Spends the day sitting by himself in the dayroom. Per attacks, he does well but has occasional angry outbursts. 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 Inpt. Patient will decompensate in a less restrictive setting Request HC Surrog/Guard Advoc?: Yes Jayson Hartman DO October 18, 2016 12:51
[2016-10-18 20:06] VITALS: BP 95/55; PULSE 80; RESP 18; TEMP 97.2; O2SAT 96
[2016-10-18] MEDS: PRAVASTATIN SOD 80 MG TAB PO SCH (20:21)
[2016-10-18] MEDS: DONEPEZIL HCL 5 MG TAB PO SCH (20:21)
[2016-10-18] MEDS: LATANOPROST 0.005% OPHT SOLN 2.5 ML BTL EACH EYE SCH (20:24)
[2016-10-18] MEDS: diphenhydrAMINE HCL 25 MG CAP PO PRN (23:20)
[2016-10-18] MEDS: HALOPERIDOL 2 MG TAB PO PRN (23:20)
[2016-10-19] MEDS: DIVALPROEX SODIUM DELAYED RELEASE 250 MG TAB PO SCH ×3 (05:40→22:44)
[2016-10-19] MEDS: INSULIN ASPART SUPPLEMENTAL SCALE SQ SCH ×5 (06:27→21:00)
[2016-10-19 06:39] VITALS: BP 108/57; PULSE 79; RESP 18; TEMP 97.9; O2SAT 99
[2016-10-19] MEDS: MEMANTINE HCL 10 MG TAB PO SCH ×2 (09:33→22:44)
[2016-10-19] MEDS: QUEtiapine FUMARATE 25 MG TAB PO SCH (09:33)
--- NOTE | 2016-10-19 12:39 | HHI.PYPN ---
Subjective Remarks Patient seen in day room with nurse Millie, patient sitting in chair calm but vigilant and easily irritated with questions especially concerning his behaviors. Earlier this morning patient noted to swooned to the floor was gradually lowered to the floor by staff. He needed assistance getting up this appeared to be more manipulative than anything else. Will increase Seroquel to 100 mg twice a day Review of Systems Except as stated in HPI: all other systems reviewed are Neg Objective Alert: Yes [place]: Person, Place Mood: Angry, Oppositional Affect: Blunted Memory Intact: Comment (remains impaired) Hallucinations: Other (None) Delusions: No Delusion Type: Paranoid Suicidal: Ideation (No SI) Homicidal: Ideation (No HI) Insight/Judgment Very poor Vitals/IOs Vital Signs Date Time Temp Pulse Resp B/P Pulse Ox O2 Delivery O2 Flow Rate FiO2 10/19/16 06:39 97.9 79 18 108/57 99 Intake and Output 10/18/16 10/18/16 10/18/16 07:59 15:59 23:59 Intake Total 0 ml 960 ml 840 ml Balance 0 ml 960 ml 840 ml Assessment & Plan Problem List: (1) 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 Inpt. At this time patient will decompensate if placed in a lower level of care Discharge Planning To be determined Request HC Surrog/Guard Advoc?: Yes Danny Bob MD October 19, 2016 12:39
[2016-10-19 17:00] VITALS: BP 115/81; PULSE 87; RESP 18; TEMP 97.1
[2016-10-19] MEDS: QUEtiapine FUMARATE 100 MG TAB PO SCH (17:25)
[2016-10-19] MEDS: DONEPEZIL HCL 5 MG TAB PO SCH (22:43)
[2016-10-19] MEDS: HALOPERIDOL 2 MG TAB PO PRN (22:43)
[2016-10-19] MEDS: PRAVASTATIN SOD 80 MG TAB PO SCH (22:44)
[2016-10-19] MEDS: LATANOPROST 0.005% OPHT SOLN 2.5 ML BTL EACH EYE SCH (22:45)
[2016-10-20] MEDS: DIVALPROEX SODIUM DELAYED RELEASE 250 MG TAB PO SCH ×4 (05:06→21:00)
[2016-10-20] MEDS: INSULIN ASPART SUPPLEMENTAL SCALE SQ SCH ×5 (05:07→21:00)
[2016-10-20 06:00] VITALS: BP 112/69; PULSE 74; RESP 18; TEMP 97.8; O2SAT 99
[2016-10-20] MEDS: MEMANTINE HCL 10 MG TAB PO SCH ×2 (10:10→21:00)
[2016-10-20] MEDS: HALOPERIDOL 2 MG TAB PO PRN (10:10)
[2016-10-20] MEDS: QUEtiapine FUMARATE 100 MG TAB PO SCH ×2 (10:10→17:26)
--- NOTE | 2016-10-20 16:14 | HHI.PYPN ---
Subjective Remarks Patient seen in day room with nurse David, chart reviewed. Patient compliant medications. The patient remains calm there is an underlying irritability that is easily activated if question to specifically about memory about his behaviors. For now continue treatment Review of Systems Except as stated in HPI: all other systems reviewed are Neg Objective Alert: Yes [place]: Person, Place Mood: Angry, Oppositional Affect: Blunted Memory Intact: Comment (remains impaired) Hallucinations: Other (None) Delusions: No Delusion Type: Paranoid Suicidal: Ideation (No SI) Homicidal: Ideation (No HI) Insight/Judgment Very poor Vitals/IOs Vital Signs Date Time Temp Pulse Resp B/P Pulse Ox O2 Delivery O2 Flow Rate FiO2 10/20/16 06:00 97.8 74 18 112/69 99 Intake and Output 10/19/16 10/19/16 10/19/16 07:59 15:59 23:59 Intake Total 1560 ml 780 ml Balance 1560 ml 780 ml Assessment & Plan Problem List: (1) 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 Justification for Cont. Inpt. At this time patient will decompensate the placed on the lower level of care Discharge Planning To be determined Request HC Surrog/Guard Advoc?: Yes Danny Bob MD October 20, 2016 16:14
[2016-10-20 18:19] VITALS: BP 146/84; PULSE 81; RESP 17; TEMP 98.9; O2SAT 98
[2016-10-20] MEDS: LATANOPROST 0.005% OPHT SOLN 2.5 ML BTL EACH EYE SCH (21:00)
[2016-10-20] MEDS: DONEPEZIL HCL 5 MG TAB PO SCH (21:00)
[2016-10-20] MEDS: PRAVASTATIN SOD 80 MG TAB PO SCH (21:00)
[2016-10-21] MEDS: diphenhydrAMINE HCL 25 MG CAP PO PRN (00:50)
[2016-10-21] MEDS: DIVALPROEX SODIUM DELAYED RELEASE 250 MG TAB PO SCH ×3 (05:11→20:53)
[2016-10-21 05:31] VITALS: BP 122/79; PULSE 109; RESP 17; O2SAT 96
[2016-10-21] MEDS: INSULIN ASPART SUPPLEMENTAL SCALE SQ SCH ×4 (06:00→20:53)
[2016-10-21] MEDS: QUEtiapine FUMARATE 100 MG TAB PO SCH (08:00)
[2016-10-21] MEDS: MEMANTINE HCL 10 MG TAB PO SCH ×3 (09:00→21:00)
--- NOTE | 2016-10-21 11:38 | HHI.PYPN ---
Subjective Remarks Patient seen and examined with nurse. Chart reviewed. Case discussed with nursing staff reports that the patient is somewhat restless at night. Patient also required a Haldol PRN yesterday morning for agitation per nursing staff. For me today, the patient is presently calm. He is at his confused baseline. He is unsure of the date but believes it is "close to [place]." He is unsure of his location but believes it is a "friendly place and the food is good." Denies side effects from medications. No physical complaints. Per counselor, a factory representative from patient's facility was out and visit with the patient during the period of my absence for possible return to facility, but the patient unfortunately grew agitated at the time of this visit and so is not presently able to return to his facility although the facility is willing to reconsider his case once he is more stable. Review of Systems ROS Limitations: Poor Historian Except as stated in HPI: all other systems reviewed are Neg Objective Alert: Yes [place]: Person Mood: Calm Affect: Blunted Memory Intact: Comment (impaired on clinical exam) Hallucinations: Other (None) Delusions: No Delusion Type: Other (no angela delusions) Suicidal: Ideation (No SI) Homicidal: Ideation (No HI) Insight/Judgment Poor Remarks No abnormal motor movements noted. Thought process somewhat disorganized consistent with dementia diagnosis. Labs Labs reviewed. 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 Continue Aricept and Namenda as ordered. Continue Depakote as ordered. Check an updated set of basic laboratories. Continue other medications of care as ordered. Justification for Cont. Inpt. Impairment in reality construction as a consequence of his dementia. Ongoing intermittent episodes of agitation requiring PRNs per nursing staff. Medication changes in process. High risk for decompensation in a less restrictive environment. Discharge Planning Return to [facility] once psychiatrically stabilized. Request HC Surrog/Guard Advoc?: Yes Chino Steward MD October 21, 2016 11:38
[2016-10-21] MEDS: QUEtiapine FUMARATE 25 MG TAB PO SCH ×3 (14:30→21:00)
[2016-10-21] MEDS: ACETAMINOPHEN 325 MG TAB PO PRN ×2 (15:59→20:53)
[2016-10-21 16:00] VITALS: BP 107/67; PULSE 92; RESP 19; TEMP 100; O2SAT 94
[2016-10-21 17:21] LABS: BLOOD, URINE NEG (NEG); COMMENT (UR) CULT NOT INDICATED; CULTURE IF INDICATED CULT NOT INDICATED; GLUCOSE,URINE NEG (NEG); KETONE, URINE NEG (NEG); NITRITE,URINE NEG (NEG); PH, URINE 6.5 (5.0-8.5); URINE COLOR YELLOW (YELLW/STRAW)
[2016-10-21 18:45] VITALS: TEMP 99.6
[2016-10-21 19:34] LABS: AUTOMATED NEUTROPHIL # 6.9 TH/MM3 (1.8-7.7); BASOPHIL % 0.4 % (0.0-2.0); EOSINOPHIL % 0.3 % (0.0-4.0); HEMATOCRIT 41.8 % (39.0-51.0); HEMO FLAGS DIFF FINAL; LYMPH % 14.8 % (9.0-44.0); LYMPHOCYTE # 1.5 TH/MM3 (1.0-4.8); MEAN CELL VOLUME 93.4 FL (80.0-100.0); MEAN CORPUSCULAR HEMOGLOBIN 31.2 PG (27.0-34.0); MEAN CORPUSCULAR HGB CONC 33.4 % (32.0-36.0); NEUT % 69.5 % (16.0-70.0); PLATELET COUNT 121 TH/MM3 (150-450); RED BLOOD COUNT 4.47 MIL/MM3 (4.50-5.90); RED CELL DISTRIBUTION WIDTH 13.4 % (11.6-17.2); WHITE BLOOD COUNT 9.9 TH/MM3 (4.0-11.0)
[2016-10-21 19:51] LABS: ALKALINE PHOSPHATASE 102 U/L (45-117); ALT (GPT) 25 U/L (12-78); ANION GAP 7 MEQ/L (5-15); AST (GOT) 33 U/L (15-37); BICARBONATE 29.5 MEQ/L (21.0-32.0); BLOOD UREA NITROGEN 16 MG/DL (7-18); CHLORIDE 103 MEQ/L (98-107); GLOMERULAR FILTRATION RATE 65 ML/MIN (>89); SODIUM (NA) 139 MEQ/L (136-145); TOTAL BILIRUBIN ADULT 0.8 MG/DL (0.2-1.0)
[2016-10-21 20:08] VITALS: PULSE 85; RESP 16; TEMP 99.4; O2SAT 94
[2016-10-21] MEDS: LATANOPROST 0.005% OPHT SOLN 2.5 ML BTL EACH EYE SCH (20:51)
[2016-10-21] MEDS: MELATONIN 5 MG TAB PO PRN (20:52)
[2016-10-21] MEDS: PRAVASTATIN SOD 80 MG TAB PO SCH ×2 (20:53→21:00)
[2016-10-21] MEDS: DONEPEZIL HCL 5 MG TAB PO SCH ×2 (20:53→21:00)
[2016-10-22] MEDS: ACETAMINOPHEN 325 MG TAB PO PRN ×2 (00:25→09:21)
[2016-10-22 00:32] VITALS: BP 105/63; PULSE 75; RESP 18; TEMP 100
[2016-10-22 04:00] VITALS: BP 107/67; PULSE 79; RESP 16; TEMP 99.1; O2SAT 95
[2016-10-22] MEDS: DIVALPROEX SODIUM DELAYED RELEASE 250 MG TAB PO SCH ×3 (04:50→21:39)
[2016-10-22 05:30] VITALS: BP 107/67; PULSE 79; RESP 16; TEMP 99.1
[2016-10-22] MEDS: INSULIN ASPART SUPPLEMENTAL SCALE SQ SCH ×4 (06:09→21:00)
[2016-10-22] MEDS: QUEtiapine FUMARATE 25 MG TAB PO SCH ×3 (09:21→21:42)
[2016-10-22] MEDS: MEMANTINE HCL 10 MG TAB PO SCH ×2 (09:21→21:38)
[2016-10-22 13:11] VITALS: BP 94/58; PULSE 89; RESP 16; TEMP 98
--- NOTE | 2016-10-22 13:16 | HHI.PYPN ---
Subjective Remarks Patient seen and examined. Chart reviewed. Temperatures were elevated overnight, now back to normal range this morning although the patient has been given Tylenol. No evidence from laboratories for a cause for elevated temps. Case discussed with nursing staff who has noted new left wrist swelling. On my examination today, the patient is at his confused baseline. He is presently calm and cooperative with examination. He cannot recall how the left wrist swelling occurred. He in particular does not recall falling. No side effects from medications. No other physical complaints. Review of Systems ROS Limitations: Poor Historian Except as stated in HPI: all other systems reviewed are Neg Objective Alert: Yes [place]: Person Mood: Calm Affect: Blunted (tending towards flat) Memory Intact: Comment (remains impaired) Hallucinations: Other (None) Delusions: No Delusion Type: Other (no delusional material) Suicidal: Ideation (no suicidal ideation) Homicidal: Ideation (no homicidal ideation) Insight/Judgment Poor Remarks No motor abnormalities noted. I do note swelling along the posterior aspect of the wrist, and this area is tender to palpation without obvious crepitus. Patient does have some restriction of movement at the wrist, although pulses are good in the hand. No hand, forearm, or arm tenderness or swelling. No other obvious signs of trauma. Labs Test 10/21/16 10/21/16 17:00 19:15 Urine Color YELLOW Urine Turbidity CLEAR Urine pH 6.5 Urine Specific [place] 1.016 Urine Protein NEG mg/dL Urine Glucose (UA) NEG mg/dL Urine Ketones NEG mg/dL Urine Occult Blood NEG Urine Nitrite NEG Urine Bilirubin NEG Urine Urobilinogen LESS THAN 2.0 MG/DL Urine Leukocyte Esterase NEG Urine RBC 1 /hpf Urine WBC LESS THAN 1 /hpf Microscopic Urinalysis Comment CULT NOT INDICATED White Blood Count 9.9 TH/MM3 Red Blood Count 4.47 MIL/MM3 Hemoglobin 14.0 GM/DL Hematocrit 41.8 % Mean Corpuscular Volume 93.4 FL Mean Corpuscular Hemoglobin 31.2 PG Mean Corpuscular Hemoglobin 33.4 % Concent Red Cell Distribution Width 13.4 % Platelet Count 121 TH/MM3 Mean Platelet Volume 10.4 FL Neutrophils (%) (Auto) 69.5 % Lymphocytes (%) (Auto) 14.8 % Monocytes (%) (Auto) 15.0 % Eosinophils (%) (Auto) 0.3 % Basophils (%) (Auto) 0.4 % Neutrophils # (Auto) 6.9 TH/MM3 Lymphocytes # (Auto) 1.5 TH/MM3 Monocytes # (Auto) 1.5 TH/MM3 Eosinophils # (Auto) 0.0 TH/MM3 Basophils # (Auto) 0.0 TH/MM3 CBC Comment DIFF FINAL Differential Comment Sodium Level 139 MEQ/L Potassium Level 4.0 MEQ/L Chloride Level 103 MEQ/L Carbon Dioxide Level 29.5 MEQ/L Anion Gap 7 MEQ/L Blood Urea Nitrogen 16 MG/DL Creatinine 1.10 MG/DL Estimat Glomerular Filtration 65 ML/MIN Rate Random Glucose 130 MG/DL Calcium Level 8.7 MG/DL Total Bilirubin 0.8 MG/DL Aspartate Amino Transf 33 U/L (AST/SGOT) Alanine Aminotransferase 25 U/L (ALT/SGPT) Alkaline Phosphatase 102 U/L Total Protein 7.0 GM/DL Albumin 3.2 GM/DL CBC is unremarkable. CMP reveals interval improvement in patient's GFR. Blood glucose remains mildly elevated. Urinalysis is bland. 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 Consult to the hospitalist for elevated temps controlled with APAP and wrist swelling. Continue Seroquel as ordered. Falls precautions in place. Continue to monitor on the inpatient unit. Continue other medications and care as ordered. Justification for Cont. Inpt. Impairment in reality construction as a consequence of his dementia. High risk for decompensation in a less restrictive environment. Complicating condition ( wrist swelling). Discharge Planning Placement Request HC Surrog/Guard Advoc?: Yes Chino Steward MD October 22, 2016 13:15
--- NOTE | 2016-10-22 14:04 | RADRPT ---
EXAM DATE/TIME: 10/22/2016 13:23 [place] COMPARISON: No previous studies available for comparison. INDICATIONS : Swelling, fell 1 month ago MEDICAL HISTORY : None. SURGICAL HISTORY : None. ENCOUNTER: Initial ACUITY: 1 month PAIN SCORE: 7/10 LOCATION: Left wrist FINDINGS: Three view examination of the left wrist demonstrates no acute fracture or dislocation. There is adva nced arthropathy of the wrist joint with marked narrowing of the radiocarpal joint and some narrowing of the intercarpal joints with subchondral cystic changes throughout. There is soft tissue swelling at the wrist. Small erosion is also present this around the distal radioulnar joint and ulnar styloid . CONCLUSION: 1. No acute fracture or dislocation. 2. Soft tissue swelling with marked joint space narrowing, subchondral sclerosis, subchondral cyst fo rmation and some erosions especially around the distal radioulnar joint. Findings suggest an inflamma tory arthropathy with superimposed degenerative osteoarthritis as well. Cortez Zamudio MD on October 22, 2016 at 13:59 Board Certified Radiologist. This report was verified electronically.
[2016-10-22 15:59] VITALS: TEMP 97.8
--- NOTE | 2016-10-22 17:11 | PD.CONS ---
HPI Service [facility] Hospitalists Consult Requested By Psychiatric services Reason for Consult Medical management of elevated temp and left wrist swelling Primary Care Physician Unknown Diagnoses: History of Present Illness Written by Argelia Dodge PA-C acting as scribe for Dr. Hilton on 10/22/16 at 17:08. 76 yo male with PMHX of Alzheimer's Dementia, anxiety, HTN, CVA x 2, Glaucoma and HTN who was admitted to psychiatric unit under a [place] act from his [facility] alleging agitation there. Hospitalist services have been requested for medical management of left wrist swelling and low grade fever as well as management of his other comorbidities. Patient seen and examined today. Patient complains of left wrist pain and swelling for the past 3-4 weeks. He denies any other joint pain or previous diagnosis of rheumatoid arthritis. He denies any fever or chills. He denies any blurry vision, nausea , vomiting, chest pain, abdominal pain or diarrhea. He stop taking his Aspirin on his own due to GI upset. He denies any dark/bloody/tarry stools. Review of Systems Except as stated in HPI: all other systems reviewed are Neg Past Family Social History Allergies: Coded Allergies: No Known Allergies (Unverified , 09/04/16) Past Medical History Alzheimer's dementia Dyslipidemia Glaucoma Hypertension CVA 2 Anxiety Past Surgical History Left total knee replacement Appendectomy as stated on chart review however patient denies Reported Medications Pravastatin (Pravachol)80 Mg Tab80 Mg PO HS #30 TAB Ref 0 Prov:Danny Bob MD 09/14/16 Latanoprost Opth Drops (Xalatan Opth Drops)0.005% Drops1 Drop EACH EYE HS #1 BOTTLE Ref 0 Prov:Danny Bob MD 09/14/16 Donepezil (Aricept)10 Mg Tab10 Mg PO HS #30 TAB Ref 0 Prov:Danny Bob MD 09/14/16 Ziprasidone Inj (Geodon Inj)20 Mg Inj40 Mg IM DAILY PRN (AGITATION) Maximum 40 mg daily 10/01/16 [Abh Gel] No Conflict Check1 Applic TOPICAL Q4-6H PRN (ANXIETY AND/OR AGITATION) 10/01/16 Divalproex (Depnoel HOWARD)250 Mg Agwts722 Mg PO TID #60 TAB Ref 0 10/01/16 Paroxetine (Paxil)10 Mg Tab10 Mg PO DAILY #30 TAB Ref 0 10/01/16 Alprazolam (Xanax)0.25 Mg Tab0.25 Mg PO TID Ref 0 10/01/16 Memantine (Namenda)10 Mg Tab10 Mg PO BID #30 TAB Ref 0 10/01/16 Quetiapine (Seroquel)25 Mg Tab25 Mg PO TID #60 TAB Ref 0 10/01/16 Active Ordered Medications Current Medications Medications (Trade) Dose Ordered Sig/Steven Route Start Time Stop Time Status Last Admin (Tylenol) 650 mg Q4H PRN PO 10/01/16 22:15 10/22/16 09:21 (Milk Of Magnesia Liq) 30 ml DAILY PRN PO 10/01/16 22:15 (Mag-Al Plus Susp Liq) 30 ml Q6H PRN PO 10/01/16 22:15 (Xalatan 0.005% Opth Soln) 1 drop HS EACH EYE 10/01/16 22:12 10/21/16 20:51 (Pravachol) 80 mg HS PO 10/02/16 21:00 10/19/16 22:44 (Namenda) 10 mg BID PO 10/01/16 22:13 10/22/16 09:21 (Aricept) 10 mg HS PO 10/02/16 21:00 10/20/16 21:00 (Depakote Dr) 250 mg Q8H PO 10/02/16 13:00 10/22/16 13:00 (Benadryl) 25 mg Q6H PRN PO 10/02/16 13:00 10/21/16 00:50 (Benadryl Inj) 25 mg Q6H PRN IM 10/02/16 14:00 10/05/16 08:00 (Melatonin) 5 mg HS PRN PO 10/02/16 13:00 10/14/16 00:05 (D50w (Vial) Inj) 25 ml UNSCH PRN IV PUSH 10/02/16 13:15 (Glucagon Inj) 1 mg UNSCH PRN OTHER 10/02/16 13:15 (Haldol) 3 mg Q6H PRN PO 10/05/16 19:00 10/20/16 10:10 (Haldol Inj) 3 mg Q6H PRN IM 10/05/16 19:00 10/19/16 15:33 (Pill Splitter) 1 ea UNSCH PRN OTHER 10/05/16 14:30 (SEROquel) 75 mg DAILY@08,15,21 PO 10/21/16 15:00 10/22/16 13:27 Family History Father, CVA Social History Patient denies any tobacco use, EtOH consumption or illicit drug use. Patient is and lives with his . They have 3 children. Physical Exam Vital Signs Vital Signs Date Time Temp Pulse Resp B/P Pulse Ox O2 Delivery O2 Flow Rate FiO2 10/22/16 15:59 97.8 10/22/16 13:11 98.0 89 16 94/58 10/22/16 05:30 99.1 79 16 107/67 10/22/16 04:00 99.1 79 16 107/67 95 10/22/16 00:32 100.0 75 18 105/63 10/21/16 20:08 99.4 85 16 94 10/21/16 18:45 99.6 Physical Exam GENERAL: This is a well-nourished, well-developed patient, in no apparent distress. Awake and alert. SKIN: No rashes, ecchymoses or lesions. Cool and dry. HEAD: Atraumatic. Normocephalic. No temporal or scalp tenderness. EYES: Pupils equal round and reactive. Extraocular motions intact. No scleral icterus. No injection or drainage. ENT: Nose without bleeding, purulent drainage or septal hematoma. Throat without erythema, tonsillar hypertrophy or exudate. Uvula midline. Airway patent. NECK: Trachea midline. No JVD or lymphadenopathy. Supple, nontender, no meningeal signs. CARDIOVASCULAR: Regular rate and rhythm without murmurs, gallops, or rubs. RESPIRATORY: Clear to auscultation. Breath sounds equal bilaterally. No wheezes , rales, or rhonchi. GASTROINTESTINAL: Abdomen soft, non-tender, nondistended. No hepato-splenomegaly , or palpable masses. No guarding. MUSCULOSKELETAL: Left wrist swollen, warm and tender to palpation. ROM intact. BLEs without any edema. NEUROLOGICAL: Awake and alert. Able to move all extremities. No focal neurologic findings appreciated. Normal speech. Laboratory Laboratory Tests Test 10/21/16 19:15 White Blood Count 9.9 Red Blood Count 4.47 Hemoglobin 14.0 Hematocrit 41.8 Mean Corpuscular Volume 93.4 Mean Corpuscular Hemoglobin 31.2 Mean Corpuscular Hemoglobin 33.4 Concent Red Cell Distribution Width 13.4 Platelet Count 121 Mean Platelet Volume 10.4 Neutrophils (%) (Auto) 69.5 Lymphocytes (%) (Auto) 14.8 Monocytes (%) (Auto) 15.0 Eosinophils (%) (Auto) 0.3 Basophils (%) (Auto) 0.4 Neutrophils # (Auto) 6.9 Lymphocytes # (Auto) 1.5 Monocytes # (Auto) 1.5 Eosinophils # (Auto) 0.0 Basophils # (Auto) 0.0 CBC Comment DIFF FINAL Differential Comment Sodium Level 139 Potassium Level 4.0 Chloride Level 103 Carbon Dioxide Level 29.5 Anion Gap 7 Blood Urea Nitrogen 16 Creatinine 1.10 Estimat Glomerular Filtration 65 Rate Random Glucose 130 Calcium Level 8.7 Total Bilirubin 0.8 Aspartate Amino Transf 33 (AST/SGOT) Alanine Aminotransferase 25 (ALT/SGPT) Alkaline Phosphatase 102 Total Protein 7.0 Albumin 3.2 Result Diagram: 10/21/16191410/21/161914 Imaging Last Impressions Wrist X-Ray 10/22/16 0000 Signed Impressions: Service Date/Time: September 13:23 - CONCLUSION: 1. No acute fracture or dislocation. 2. Soft tissue swelling with marked joint space narrowing, subchondral sclerosis, subchondral cyst formation and some erosions especially around the distal radioulnar joint. 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 Cortez Zamudio MD Assessment and Plan Assessment and Plan 76 yo male with PMHX of Alzheimer's Dementia, anxiety, HTN, CVA x 2, Glaucoma and HTN who was admitted to psychiatric unit under a [place] act from his [facility] alleging agitation there. Hospitalist services have been requested for medical management of left wrist swelling and low grade fever as well as management of his other comorbidities. Alzheimer's dementia with behavioral disturbance Management per psychiatric team UA negative Left wrist arthritis Xray left wrist showing no evidence of fracture or dislocation but with marked soft tissue swelling, joint space narrowing, subchondral sclerosis, subchondral cyst formation and some erosions especially over the distal radioulnar joint. 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 Personally interpreted. workup for other causes of arthritis to include ESR, CRP, Hep panel, uric acid, RF and NELL begin steroid therapy thumb spica splint for immobilization Fever likely secondary to above left wrist arthritis and inflammation UA negative Tylenol prn monitor HTN No antihypertensives in med rec but history of ppr hypotensive now will continue to monitor and adjust tx as indicated CVA x 2 resume ASA 81mg daily - will add PPI given patients reported history of GI upset with previous use Dyslipidemia continue Pravastatin Glaucoma continue with Xalatan eye drops DVT prophylaxis Encourage ambulation This note was transcribed by justyn Dodge. I, Dr. Jordy Mckenna personally performed the history, physical exam, and medical decision making; and confirmed the accuracy of the information in the transcribed note. Authenticated by Dr. Jordy Mckenna on 10/22/16 at 17:20. Argelia Dodge October 22, 2016 17:11 Jordy Saldana MD Oct 29, 2016 22:06
[2016-10-22 17:33] VITALS: BP 97/66; PULSE 80; RESP 17; TEMP 97.2; O2SAT 99
[2016-10-22] MEDS: ASPIRIN EC 81 MG TABEC PO SCH (17:50)
[2016-10-22] MEDS: predniSONE 20 MG TAB PO SCH (20:00)
[2016-10-22 20:09] LABS: URIC ACID 3.9 MG/DL (2.6-7.2)
[2016-10-22] MEDS: DONEPEZIL HCL 5 MG TAB PO SCH (21:37)
[2016-10-22] MEDS: PRAVASTATIN SOD 80 MG TAB PO SCH (21:38)
[2016-10-22] MEDS: LATANOPROST 0.005% OPHT SOLN 2.5 ML BTL EACH EYE SCH (21:40)
[2016-10-22 22:36] LABS: RHEUMATOID FACTOR TRIGGER LESS THAN 10.0 IU/ML (0.0-14.9)
[2016-10-23 00:21] VITALS: BP 114/76; PULSE 70; RESP 16; TEMP 97.1; O2SAT 100
[2016-10-23] MEDS: DIVALPROEX SODIUM DELAYED RELEASE 250 MG TAB PO SCH ×3 (05:30→20:33)
[2016-10-23] MEDS: INSULIN ASPART SUPPLEMENTAL SCALE SQ SCH ×4 (06:17→20:35)
[2016-10-23 06:41] VITALS: BP 104/69; PULSE 74; RESP 16; TEMP 97; O2SAT 99
[2016-10-23 06:58] VITALS: BP 104/69; PULSE 74; RESP 16; TEMP 97; O2SAT 99
[2016-10-23] MEDS: ASPIRIN EC 81 MG TABEC PO SCH (09:10)
[2016-10-23] MEDS: MEMANTINE HCL 10 MG TAB PO SCH ×2 (09:10→20:33)
[2016-10-23] MEDS: QUEtiapine FUMARATE 25 MG TAB PO SCH ×3 (09:11→20:35)
[2016-10-23 11:23] LABS: ANA SCREEN NEG (NEG)
--- NOTE | 2016-10-23 12:07 | HHI.PYPN ---
Subjective Remarks Patient seen and examined. Chart reviewed. Case discussed with nursing staff who reports that the patient is somewhat selective regarding medications but has been no behavioral problem. The hospitalist has evaluated the patient for his inflammatory arthropathy and has started the patient on prednisone. On my examination today, the patient seems noticeably more irritable. He is somewhat discharge focused and when I endeavored to explain the discharge plan to him he is not satisfied and grows increasingly irate at my attempts to explain it to him. Patient did apparently sleep about as well as usual last night. He denies AVH. No SI or HI. No side effects from medications. No physical complaints, and he does say that the pain in his wrist is improved. Review of Systems ROS Limitations: Poor Historian Except as stated in HPI: all other systems reviewed are Neg Objective Alert: Yes [place]: Person Mood: Angry Affect: Restricted (dysphoric) Memory Intact: Comment (Impaired) Hallucinations: Other (Denies AVH) Delusions: No Delusion Type: Other (No angela delusions) Suicidal: Ideation (no suicidal ideation) Homicidal: Ideation (no homicidal ideation) Insight/Judgment Poor Remarks No motor abnormalities noted. Thought process perseverative on discharge. Speech within normal limits for rate, tone and volume. Grooming and hygiene fair. Labs Test 10/22/16 18:34 Erythrocyte Sedimentation Rate 10 mm/hr Uric Acid 3.9 MG/DL C-Reactive Protein 1.60 MG/DL Rheumatoid Factor Screen NEGATIVE Rheumatoid Factor Titer IU/ML Anti-Nuclear Antibody Screen NEG Labs reviewed. Rheumatologic laboratories reviewed; besides mildly elevated CRP , these are unremarkable. 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 Rather than titrate patient's Seroquel as patient's blood pressure is already somewhat marginal and I am concerned about bottoming him out, I will instead titrate the patient's Depakote to 500 mg twice daily. I will check a Depakote level as well as a CBC after the weekend to monitor thrombocytopenia. Hospitalist input noted and appreciated. Continue to monitor on the inpatient unit. Continue other medications and care as ordered. Justification for Cont. Inpt. Complicating condition, namely possible steroid-induced mood disorder. Medication changes in process. Impairment in reality construction as a consequence of his dementia. High risk for decompensation in a less restrictive environment. Discharge Planning Return to facility once psychiatrically stable. Counselor reports that telecommunications sales representative from facility will be out to evaluate the patient next Wednesday, although if patient continues to require steroids and has associated irritability, he may require additional inpatient days beyond this for stabilization. Request HC Surrog/Guard Advoc?: Yes Chino Steward MD October 23, 2016 12:07
[2016-10-23 17:46] VITALS: BP 88/53; PULSE 82; RESP 18; TEMP 97.4; O2SAT 97
[2016-10-23] MEDS: predniSONE 20 MG TAB PO SCH (20:00)
[2016-10-23] MEDS: MELATONIN 5 MG TAB PO PRN (20:33)
[2016-10-23] MEDS: DONEPEZIL HCL 5 MG TAB PO SCH (20:33)
[2016-10-23] MEDS: PRAVASTATIN SOD 80 MG TAB PO SCH (20:33)
[2016-10-23] MEDS: LATANOPROST 0.005% OPHT SOLN 2.5 ML BTL EACH EYE SCH (20:34)
--- NOTE | 2016-10-23 22:02 | HHI.PR ---
Subjective Remarks deferred entry - patient seen earlier at 7:00 pm Patient states pain in left wrist is much improved Objective Vitals Vital Signs Date Time Temp Pulse Resp B/P Pulse Ox O2 Delivery O2 Flow Rate FiO2 10/23/16 17:46 97.4 82 18 88/53 97 10/23/16 06:58 97.0 74 16 104/69 99 10/23/16 06:41 97.0 74 16 104/69 99 10/23/16 00:21 97.1 70 16 114/76 100 I/O 10/22/16 10/22/16 10/22/16 10/23/16 10/23/16 10/23/16 07:00 15:00 23:00 07:00 15:00 23:00 Intake Total 720 ml 0 ml 720 ml 480 ml Balance 720 ml 0 ml 720 ml 480 ml Intake Oral 480 ml 0 ml 720 ml 480 ml Oral Supplement 240 ml # Voids 1 1 1 2 Result Diagram: 10/21/16191410/21/161914 Imaging Last Impressions Wrist X-Ray 10/22/16 0000 Signed Impressions: Service Date/Time: September 13:23 - CONCLUSION: 1. No acute fracture or dislocation. 2. Soft tissue swelling with marked joint space narrowing, subchondral sclerosis, subchondral cyst formation and some erosions especially around the distal radioulnar joint. 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 Cortez Zamudio MD Objective Remarks GENERAL: This is a well-nourished, well-developed patient, in no apparent distress. Awake and alert. SKIN: No rashes, ecchymoses or lesions. Cool and dry. HEAD: Atraumatic. Normocephalic. No temporal or scalp tenderness. EYES: Pupils equal round and reactive. Extraocular motions intact. No scleral icterus. No injection or drainage. ENT: Nose without bleeding, purulent drainage or septal hematoma. Throat without erythema, tonsillar hypertrophy or exudate. Uvula midline. Airway patent. NECK: Trachea midline. No JVD or lymphadenopathy. Supple, nontender, no meningeal signs. CARDIOVASCULAR: Regular rate and rhythm without murmurs, gallops, or rubs. RESPIRATORY: Clear to auscultation. Breath sounds equal bilaterally. No wheezes , rales, or rhonchi. GASTROINTESTINAL: Abdomen soft, non-tender, nondistended. No hepato-splenomegaly , or palpable masses. No guarding. MUSCULOSKELETAL: Left hand with thumb spica splint, wrist with less tenderness to palpation. ROM intact. BLEs without any edema. NEUROLOGICAL: Awake and alert. Able to move all extremities. No focal neurologic findings appreciated. Normal speech Medications and IVs Current Medications Medications (Trade) Dose Ordered Sig/Steven Route Start Time Stop Time Status Last Admin (Tylenol) 650 mg Q4H PRN PO 10/01/16 22:15 10/22/16 09:21 (Milk Of Magnesia Liq) 30 ml DAILY PRN PO 10/01/16 22:15 (Mag-Al Plus Susp Liq) 30 ml Q6H PRN PO 10/01/16 22:15 (Xalatan 0.005% Opth Soln) 1 drop HS EACH EYE 10/01/16 22:12 10/23/16 20:34 (Pravachol) 80 mg HS PO 10/02/16 21:00 10/23/16 20:33 (Namenda) 10 mg BID PO 10/01/16 22:13 10/23/16 20:33 (Aricept) 10 mg HS PO 10/02/16 21:00 10/23/16 20:33 (Benadryl) 25 mg Q6H PRN PO 10/02/16 13:00 10/21/16 00:50 (Benadryl Inj) 25 mg Q6H PRN IM 10/02/16 14:00 10/05/16 08:00 (Melatonin) 5 mg HS PRN PO 10/02/16 13:00 10/23/16 20:33 (D50w (Vial) Inj) 25 ml UNSCH PRN IV PUSH 10/02/16 13:15 (Glucagon Inj) 1 mg UNSCH PRN OTHER 10/02/16 13:15 (Haldol) 3 mg Q6H PRN PO 10/05/16 19:00 10/20/16 10:10 (Haldol Inj) 3 mg Q6H PRN IM 10/05/16 19:00 10/19/16 15:33 (Pill Splitter) 1 ea UNSCH PRN OTHER 10/05/16 14:30 (SEROquel) 75 mg DAILY@08,15,21 PO 10/21/16 15:00 10/23/16 20:35 (Ecotrin Ec) 81 mg DAILY PO 10/22/16 18:00 10/23/16 09:10 (Deltasone) 40 mg Q24H PO 10/22/16 20:00 10/23/16 20:00 (Depakote Dr) 500 mg BID PO 10/23/16 21:00 10/23/16 20:33 A/P Assessment and Plan 76 yo male with PMHX of Alzheimer's Dementia, anxiety, HTN, CVA x 2, Glaucoma and HTN who was admitted to psychiatric unit under a [place] act from his [facility] alleging agitation there. Hospitalist services have been requested for medical management of left wrist swelling and low grade fever as well as management of his other comorbidities. Alzheimer's dementia with behavioral disturbance Management per psychiatric team UA negative Left wrist arthritis Xray left wrist showing no evidence of fracture or dislocation but with marked soft tissue swelling, joint space narrowing, subchondral sclerosis, subchondral cyst formation and some erosions especially over the distal radioulnar joint. 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 Personally interpreted. workup for other causes of arthritis to include ESR, CRP, Hep panel, uric acid, RF and NELL ----> negative Continue steroid therapy thumb spica splint for immobilization ---> continue Fever likely secondary to above left wrist arthritis and inflammation UA negative Tylenol prn monitor HTN No antihypertensives in med rec but history of poor hypotensive now will continue to monitor and adjust tx as indicated CVA x 2 Continue ASA 81mg daily - will add PPI given patients reported history of GI upset with previous use Dyslipidemia continue Pravastatin Glaucoma continue with Xalatan eye drops, seems stable, no visual disturbances or complaints DVT prophylaxis Encourage ambulation Jordy Saldana MD October 23, 2016 22:02
[2016-10-24] MEDS: INSULIN ASPART SUPPLEMENTAL SCALE SQ SCH ×4 (05:59→21:00)
[2016-10-24 06:00] VITALS: BP 122/74; PULSE 84; RESP 16; TEMP 97.4
[2016-10-24] MEDS: DIVALPROEX SODIUM DELAYED RELEASE 250 MG TAB PO SCH ×2 (08:33→21:38)
[2016-10-24] MEDS: ASPIRIN EC 81 MG TABEC PO SCH (08:33)
[2016-10-24] MEDS: QUEtiapine FUMARATE 25 MG TAB PO SCH ×3 (08:33→21:35)
[2016-10-24] MEDS: MEMANTINE HCL 10 MG TAB PO SCH ×2 (08:33→21:29)
--- NOTE | 2016-10-24 11:24 | HHI.PYPN ---
Subjective Remarks Pt seen and discussed with staff. He has been quiet and isolative today but has not had behavior problems. He is compliant with care. No medication side effects. Objective Alert: Yes [place]: Person Mood: Calm Affect: Restricted Memory Intact: Comment (impaired) Hallucinations: Other (no AVH) Delusions: No Delusion Type: Other (No angela delusions) Suicidal: Ideation (no suicidal ideation) Homicidal: Ideation (no homicidal ideation) Insight/Judgment poor Vitals/IOs Vital Signs Date Time Temp Pulse Resp B/P Pulse Ox O2 Delivery O2 Flow Rate FiO2 10/24/16 06:00 97.4 84 16 122/74 10/23/16 17:46 97 Intake and Output 10/23/16 10/23/16 10/24/16 08:00 16:00 00:00 Intake Total 0 ml 720 ml 1320 ml Balance 0 ml 720 ml 1320 ml Assessment & Plan Problem List: (1) 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 Estimated LOS: days Justification for Cont. Inpt. impairments in self care Request HC Surrog/Guard Advoc?: Yes Carol De Los Santos MD October 24, 2016 11:24
--- NOTE | 2016-10-24 17:28 | HHI.PR ---
Subjective Remarks No further fevers left wrist is less tender Objective Vitals Vital Signs Date Time Temp Pulse Resp B/P Pulse Ox O2 Delivery O2 Flow Rate FiO2 10/24/16 06:00 97.4 84 16 122/74 10/23/16 17:46 97.4 82 18 88/53 97 I/O 10/23/16 10/23/16 10/23/16 10/24/16 10/24/16 10/24/16 07:00 15:00 23:00 07:00 15:00 23:00 Intake Total 0 ml 720 ml 1320 ml 360 ml 360 ml Balance 0 ml 720 ml 1320 ml 360 ml 360 ml Intake Oral 0 ml 720 ml 1320 ml 240 ml 360 ml Oral Supplement 120 ml # Voids 1 2 1 1 Result Diagram: 10/21/16191410/21/161914 Imaging Last Impressions Wrist X-Ray 10/22/16 0000 Signed Impressions: Service Date/Time: September 13:23 - CONCLUSION: 1. No acute fracture or dislocation. 2. Soft tissue swelling with marked joint space narrowing, subchondral sclerosis, subchondral cyst formation and some erosions especially around the distal radioulnar joint. 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 Cortez Zamudio MD Objective Remarks GENERAL: This is a well-nourished, well-developed patient, in no apparent distress. Awake and alert. SKIN: No rashes, ecchymoses or lesions. Cool and dry. HEAD: Atraumatic. Normocephalic. No temporal or scalp tenderness. EYES: Pupils equal round and reactive. Extraocular motions intact. No scleral icterus. No injection or drainage. ENT: Nose without bleeding, purulent drainage or septal hematoma. Throat without erythema, tonsillar hypertrophy or exudate. Uvula midline. Airway patent. NECK: Trachea midline. No JVD or lymphadenopathy. Supple, nontender, no meningeal signs. CARDIOVASCULAR: Regular rate and rhythm without murmurs, gallops, or rubs. RESPIRATORY: Clear to auscultation. Breath sounds equal bilaterally. No wheezes , rales, or rhonchi. GASTROINTESTINAL: Abdomen soft, non-tender, nondistended. No hepato-splenomegaly , or palpable masses. No guarding. MUSCULOSKELETAL: Left hand with thumb spica splint, wrist with less tenderness to palpation. ROM intact. BLEs without any edema. NEUROLOGICAL: Awake and alert. Able to move all extremities. No focal neurologic findings appreciated. Normal speech Medications and IVs Current Medications Medications (Trade) Dose Ordered Sig/Steven Route Start Time Stop Time Status Last Admin (Tylenol) 650 mg Q4H PRN PO 10/01/16 22:15 10/22/16 09:21 (Milk Of Magnesia Liq) 30 ml DAILY PRN PO 10/01/16 22:15 (Mag-Al Plus Susp Liq) 30 ml Q6H PRN PO 10/01/16 22:15 (Xalatan 0.005% Opth Soln) 1 drop HS EACH EYE 10/01/16 22:12 10/23/16 20:34 (Pravachol) 80 mg HS PO 10/02/16 21:00 10/23/16 20:33 (Namenda) 10 mg BID PO 10/01/16 22:13 10/24/16 08:33 (Aricept) 10 mg HS PO 10/02/16 21:00 10/23/16 20:33 (Benadryl) 25 mg Q6H PRN PO 10/02/16 13:00 10/21/16 00:50 (Benadryl Inj) 25 mg Q6H PRN IM 10/02/16 14:00 10/05/16 08:00 (Melatonin) 5 mg HS PRN PO 10/02/16 13:00 10/23/16 20:33 (D50w (Vial) Inj) 25 ml UNSCH PRN IV PUSH 10/02/16 13:15 (Glucagon Inj) 1 mg UNSCH PRN OTHER 10/02/16 13:15 (Haldol) 3 mg Q6H PRN PO 10/05/16 19:00 10/20/16 10:10 (Haldol Inj) 3 mg Q6H PRN IM 10/05/16 19:00 10/19/16 15:33 (Pill Splitter) 1 ea UNSCH PRN OTHER 10/05/16 14:30 (SEROquel) 75 mg DAILY@08,15,21 PO 10/21/16 15:00 10/24/16 17:17 (Ecotrin Ec) 81 mg DAILY PO 10/22/16 18:00 10/24/16 08:33 (Deltasone) 40 mg Q24H PO 10/22/16 20:00 10/23/16 20:00 (Depakosue Srinivasan) 500 mg BID PO 10/23/16 21:00 10/24/16 08:33 Urinary Catheter: No Vascular Central Line Catheter: No A/P Assessment and Plan 76 yo male with PMHX of Alzheimer's Dementia, anxiety, HTN, CVA x 2, Glaucoma and HTN who was admitted to psychiatric unit under a [place] act from his [facility] alleging agitation there. Hospitalist services have been requested for medical management of left wrist swelling and low grade fever as well as management of his other comorbidities. Alzheimer's dementia with behavioral disturbance Management per psychiatric team UA negative Left wrist arthritis Xray left wrist showing no evidence of fracture or dislocation but with marked soft tissue swelling, joint space narrowing, subchondral sclerosis, subchondral cyst formation and some erosions especially over the distal radioulnar joint. 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 Personally interpreted. workup for other causes of arthritis to include ESR, CRP, Hep panel, uric acid, RF and NELL ----> negative Continue steroid therapy - Decrease dose to 30 mg po daily thumb spica splint for immobilization ---> continue Fever likely secondary to above left wrist arthritis and inflammation UA negative Tylenol prn monitor Fever resolved HTN No antihypertensives in med rec but history of poor hypotensive now will continue to monitor and adjust tx as indicated CVA x 2 Continue ASA 81mg daily - will add PPI given patients reported history of GI upset with previous use Dyslipidemia continue Pravastatin Glaucoma continue with Xalatan eye drops, seems stable, no visual disturbances or complaints Hyperglycemia Check hemoglobin A1c. Place on necessary with insulin NovoLog. Monitor Accu -Cheks DVT prophylaxis Encourage ambulation Jordy Saldana MD October 24, 2016 17:28
[2016-10-24 18:00] VITALS: BP 105/63; PULSE 92; RESP 16; TEMP 96.4; O2SAT 100
[2016-10-24] MEDS: predniSONE 10 MG TAB PO SCH (21:29)
[2016-10-24] MEDS: DONEPEZIL HCL 5 MG TAB PO SCH (21:29)
[2016-10-24] MEDS: PRAVASTATIN SOD 80 MG TAB PO SCH (21:29)
[2016-10-24] MEDS: LATANOPROST 0.005% OPHT SOLN 2.5 ML BTL EACH EYE SCH (21:30)
[2016-10-25 06:06] VITALS: BP 94/54; PULSE 79; RESP 16; TEMP 98.1; O2SAT 98
[2016-10-25] MEDS: INSULIN ASPART SUPPLEMENTAL SCALE SQ SCH ×4 (06:09→20:54)
[2016-10-25 09:05] LABS: HEMATOCRIT 44.2 % (39.0-51.0); MEAN CELL VOLUME 94.9 FL (80.0-100.0); MEAN CORPUSCULAR HEMOGLOBIN 30.9 PG (27.0-34.0); MEAN CORPUSCULAR HGB CONC 32.5 % (32.0-36.0); PLATELET COUNT 122 TH/MM3 (150-450); RED BLOOD COUNT 4.66 MIL/MM3 (4.50-5.90); RED CELL DISTRIBUTION WIDTH 13.4 % (11.6-17.2); REVIEW FLAG FINAL; WHITE BLOOD COUNT 5.5 TH/MM3 (4.0-11.0)
[2016-10-25] MEDS: ASPIRIN EC 81 MG TABEC PO SCH (09:08)
[2016-10-25] MEDS: QUEtiapine FUMARATE 25 MG TAB PO SCH ×3 (09:08→20:54)
[2016-10-25] MEDS: DIVALPROEX SODIUM DELAYED RELEASE 250 MG TAB PO SCH ×2 (09:08→20:52)
[2016-10-25] MEDS: MEMANTINE HCL 10 MG TAB PO SCH ×2 (09:08→20:52)
[2016-10-25 09:31] LABS: ANION GAP 6 MEQ/L (5-15); BICARBONATE 33.4 MEQ/L (21.0-32.0); BLOOD UREA NITROGEN 20 MG/DL (7-18); CHLORIDE 103 MEQ/L (98-107); GLOMERULAR FILTRATION RATE 64 ML/MIN (>89); POTASSIUM 4.4 MEQ/L (3.5-5.1); SODIUM (NA) 142 MEQ/L (136-145)
[2016-10-25 13:01] LABS: HEMOGLOBIN A1a 1.1 %; HEMOGLOBIN A1b 0.7 %; HEMOGLOBIN Ao 84.6 %; HEMOGLOBIN F 1.4 %; HEMOGLOBIN LA1C 2.1 %; HEMOGLOBIN P3 3.3 %
--- NOTE | 2016-10-25 13:12 | HHI.PYPN ---
Subjective Remarks Pt seen and discussed with staff. Pt has been compliant and cooperative with care. Taking medications without difficulty and tolerating without side effects. He has been out in milieu for most of the day. No agitation. He states that he is feeling "fine". Objective Alert: Yes [place]: Person Mood: Calm Affect: Appropriate Memory Intact: Comment (impaired) Hallucinations: Other (no AVH) Delusions: No Delusion Type: Other (No angela delusions) Suicidal: Ideation (no suicidal ideation) Homicidal: Ideation (no homicidal ideation) Insight/Judgment poor Labs Test 10/25/16 08:32 White Blood Count 5.5 TH/MM3 Red Blood Count 4.66 MIL/MM3 Hemoglobin 14.4 GM/DL Hematocrit 44.2 % Mean Corpuscular Volume 94.9 FL Mean Corpuscular Hemoglobin 30.9 PG Mean Corpuscular Hemoglobin 32.5 % Concent Red Cell Distribution Width 13.4 % Platelet Count 122 TH/MM3 Mean Platelet Volume 10.7 FL Sodium Level 142 MEQ/L Potassium Level 4.4 MEQ/L Chloride Level 103 MEQ/L Carbon Dioxide Level 33.4 MEQ/L Anion Gap 6 MEQ/L Blood Urea Nitrogen 20 MG/DL Creatinine 1.12 MG/DL Estimat Glomerular Filtration 64 ML/MIN Rate Random Glucose 111 MG/DL Hemoglobin A1c 5.0 % Calcium Level 8.7 MG/DL Vitals/IOs Vital Signs Date Time Temp Pulse Resp B/P Pulse Ox O2 Delivery O2 Flow Rate FiO2 10/25/16 06:06 98.1 79 16 94/54 98 Intake and Output 10/24/16 10/24/16 10/25/16 08:00 16:00 00:00 Intake Total 240 ml 120 ml 960 ml Balance 240 ml 120 ml 960 ml Assessment & Plan Problem List: (1) 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 Estimated LOS: days Justification for Cont. Inpt. risk of decompensation Request HC Surrog/Guard Advoc?: Yes Carol De Los Santos MD October 25, 2016 1:12 pm
[2016-10-25 19:59] VITALS: BP 101/55; PULSE 79; RESP 16; TEMP 97.5; O2SAT 100
[2016-10-25] MEDS: LATANOPROST 0.005% OPHT SOLN 2.5 ML BTL EACH EYE SCH (20:51)
[2016-10-25] MEDS: predniSONE 10 MG TAB PO SCH (20:51)
[2016-10-25] MEDS: DONEPEZIL HCL 5 MG TAB PO SCH (20:51)
[2016-10-25] MEDS: PRAVASTATIN SOD 80 MG TAB PO SCH (20:52)
[2016-10-26 05:39] VITALS: BP 107/55; PULSE 68; RESP 20; TEMP 98.7; O2SAT 99
[2016-10-26] MEDS: INSULIN ASPART SUPPLEMENTAL SCALE SQ SCH ×4 (06:31→20:52)
[2016-10-26 07:45] LABS: AUTOMATED NEUTROPHIL # 3.6 TH/MM3 (1.8-7.7); BASOPHIL % 0.1 % (0.0-2.0); EOSINOPHIL % 0.1 % (0.0-4.0); HEMATOCRIT 38.7 % (39.0-51.0); HEMO FLAGS DIFF FINAL; LYMPH % 16.3 % (9.0-44.0); LYMPHOCYTE # 0.7 TH/MM3 (1.0-4.8); MEAN CELL VOLUME 94.4 FL (80.0-100.0); MEAN CORPUSCULAR HEMOGLOBIN 30.9 PG (27.0-34.0); MEAN CORPUSCULAR HGB CONC 32.8 % (32.0-36.0); MONO % 3.7 % (0.0-8.0); NEUT % 79.8 % (16.0-70.0); PLATELET COUNT 116 TH/MM3 (150-450); RED CELL DISTRIBUTION WIDTH 13.4 % (11.6-17.2); WHITE BLOOD COUNT 4.5 TH/MM3 (4.0-11.0)
[2016-10-26] MEDS: QUEtiapine FUMARATE 25 MG TAB PO SCH ×3 (08:00→20:54)
[2016-10-26] MEDS: MEMANTINE HCL 10 MG TAB PO SCH ×2 (08:53→20:48)
[2016-10-26] MEDS: DIVALPROEX SODIUM DELAYED RELEASE 250 MG TAB PO SCH ×2 (08:53→20:48)
[2016-10-26] MEDS: ASPIRIN EC 81 MG TABEC PO SCH (08:53)
--- NOTE | 2016-10-26 10:59 | HHI.PYPN ---
Subjective Remarks Patient seen and examined with nurse. Chart reviewed. Case discussed with nursing staff who reports that the patient remains a little suspicious particularly regarding medications. He reportedly threw his medications on the floor this morning. I note that the hospitalist is tapering prednisone. On my examination today, the patient is out in the [facility] area. He is presently calm and pleasant. There is a slight tinge of some residual irritability, but this is considerably attenuated versus our contact before the weekend. He is at his confused baseline. He denies any audiovisual hallucinations or subjective irritability. No side effects from medications. No physical complaints. Review of Systems ROS Limitations: Poor Historian Except as stated in HPI: all other systems reviewed are Neg Objective Alert: Yes [place]: Person Mood: Calm Affect: Blunted (very slightly irritable) Memory Intact: Comment (remains impaired) Hallucinations: Other (denies AVH) Delusions: No Delusion Type: Other (no delusional material) Suicidal: Ideation (no suicidal ideation) Homicidal: Ideation (no homicidal ideation) Insight/Judgment Poor Remarks No abnormal motor movements noted. Grooming and hygiene fair. Labs Test 10/26/16 06:39 White Blood Count 4.5 TH/MM3 Red Blood Count 4.10 MIL/MM3 Hemoglobin 12.7 GM/DL Hematocrit 38.7 % Mean Corpuscular Volume 94.4 FL Mean Corpuscular Hemoglobin 30.9 PG Mean Corpuscular Hemoglobin 32.8 % Concent Red Cell Distribution Width 13.4 % Platelet Count 116 TH/MM3 Mean Platelet Volume 10.6 FL Neutrophils (%) (Auto) 79.8 % Lymphocytes (%) (Auto) 16.3 % Monocytes (%) (Auto) 3.7 % Eosinophils (%) (Auto) 0.1 % Basophils (%) (Auto) 0.1 % Neutrophils # (Auto) 3.6 TH/MM3 Lymphocytes # (Auto) 0.7 TH/MM3 Monocytes # (Auto) 0.2 TH/MM3 Eosinophils # (Auto) 0.0 TH/MM3 Basophils # (Auto) 0.0 TH/MM3 CBC Comment DIFF FINAL Differential Comment Valproic Acid (Depakene) Level 59 MCG/ML Labs reviewed. Thrombocytopenia stable. I note the development of a mild normocytic anemia, although this may be dilutional as al cell lines are decreased. Depakote level essentially unchanged despite increasing the dose by one third. 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 I will continue his current psychotropics unchanged for this reason. Plan to continue to trend anemia and thrombocytopenia; I will additionally check iron studies. Hospitalist consult and employed appreciated. Continue to monitor on the inpatient unit. Continue other medications and care as ordered. Justification for Cont. Inpt. Impairment in reality construction as a consequence of his dementia. High risk for decompensation in a less restrictive environment. Discharge Planning Return to placement once psychiatrically stabilized. Request HC Surrog/Guard Advoc?: Yes Chino Steward MD October 26, 2016 10:59
[2016-10-26 14:45] LABS: FERRITIN 654 NG/ML (26-388); TRANSFERRIN IRON PROFILE 142 MG/DL (200-360)
--- NOTE | 2016-10-26 16:08 | HHI.PR ---
Subjective Remarks Patient states swellin in wrist has resolved no further fevers/chills Objective Vitals Vital Signs Date Time Temp Pulse Resp B/P Pulse Ox O2 Delivery O2 Flow Rate FiO2 10/26/16 05:39 98.7 68 20 107/55 99 10/25/16 19:59 97.5 79 16 101/55 100 I/O 10/25/16 10/25/16 10/25/16 10/26/16 10/26/16 10/26/16 07:00 15:00 23:00 07:00 15:00 23:00 Intake Total 120 ml 960 ml 480 ml Balance 120 ml 960 ml 480 ml Intake Oral 120 ml 960 ml 480 ml # Voids 1 2 Result Diagram: 10/26/16 0639 10/25/16 0832 Imaging Last Impressions Wrist X-Ray 10/22/16 0000 Signed Impressions: Service Date/Time: September 13:23 - CONCLUSION: 1. No acute fracture or dislocation. 2. Soft tissue swelling with marked joint space narrowing, subchondral sclerosis, subchondral cyst formation and some erosions especially around the distal radioulnar joint. 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 Cortez Zamudio MD Objective Remarks GENERAL: This is a well-nourished, well-developed patient, in no apparent distress. Awake and alert. SKIN: No rashes, ecchymoses or lesions. Cool and dry. HEAD: Atraumatic. Normocephalic. No temporal or scalp tenderness. EYES: Pupils equal round and reactive. Extraocular motions intact. No scleral icterus. No injection or drainage. ENT: Nose without bleeding, purulent drainage or septal hematoma. Throat without erythema, tonsillar hypertrophy or exudate. Uvula midline. Airway patent. NECK: Trachea midline. No JVD or lymphadenopathy. Supple, nontender, no meningeal signs. CARDIOVASCULAR: Regular rate and rhythm without murmurs, gallops, or rubs. RESPIRATORY: Clear to auscultation. Breath sounds equal bilaterally. No wheezes , rales, or rhonchi. GASTROINTESTINAL: Abdomen soft, non-tender, nondistended. No hepato-splenomegaly , or palpable masses. No guarding. MUSCULOSKELETAL: No tenderness on palpation or swelling on left wrist. ROM intact. BLEs without any edema. NEUROLOGICAL: Awake and alert. Able to move all extremities. No focal neurologic findings appreciated. Normal speech Medications and IVs Current Medications Medications (Trade) Dose Ordered Sig/Steven Route Start Time Stop Time Status Last Admin (Tylenol) 650 mg Q4H PRN PO 10/01/16 22:15 10/22/16 09:21 (Milk Of Magnesia Liq) 30 ml DAILY PRN PO 10/01/16 22:15 (Mag-Al Plus Susp Liq) 30 ml Q6H PRN PO 10/01/16 22:15 (Xalatan 0.005% Opth Soln) 1 drop HS EACH EYE 10/01/16 22:12 10/25/16 20:51 (Pravachol) 80 mg HS PO 10/02/16 21:00 10/25/16 20:52 (Namenda) 10 mg BID PO 10/01/16 22:13 10/26/16 08:53 (Aricept) 10 mg HS PO 10/02/16 21:00 10/25/16 20:51 (Benadryl) 25 mg Q6H PRN PO 10/02/16 13:00 10/21/16 00:50 (Benadryl Inj) 25 mg Q6H PRN IM 10/02/16 14:00 10/05/16 08:00 (Melatonin) 5 mg HS PRN PO 10/02/16 13:00 10/23/16 20:33 (D50w (Vial) Inj) 25 ml UNSCH PRN IV PUSH 10/02/16 13:15 (Glucagon Inj) 1 mg UNSCH PRN OTHER 10/02/16 13:15 (Haldol) 3 mg Q6H PRN PO 10/05/16 19:00 10/20/16 10:10 (Haldol Inj) 3 mg Q6H PRN IM 10/05/16 19:00 10/19/16 15:33 (Pill Splitter) 1 ea UNSCH PRN OTHER 10/05/16 14:30 (SEROquel) 75 mg DAILY@08,15,21 PO 10/21/16 15:00 10/26/16 15:00 (Ecotrin Ec) 81 mg DAILY PO 10/22/16 18:00 10/26/16 08:53 (Depakote Dr) 500 mg BID PO 10/23/16 21:00 10/26/16 08:53 (Deltasone) 30 mg Q24H PO 10/24/16 20:00 10/25/16 20:51 Urinary Catheter: No Vascular Central Line Catheter: No A/P Assessment and Plan 76 yo male with PMHX of Alzheimer's Dementia, anxiety, HTN, CVA x 2, Glaucoma and HTN who was admitted to psychiatric unit under a Campa act from his [facility] alleging agitation there. Hospitalist services have been requested for medical management of left wrist swelling and low grade fever as well as management of his other comorbidities. Alzheimer's dementia with behavioral disturbance Management per psychiatric team UA negative Left wrist arthritis Xray left wrist showing no evidence of fracture or dislocation but with marked soft tissue swelling, joint space narrowing, subchondral sclerosis, subchondral cyst formation and some erosions especially over the distal radioulnar joint. 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 Personally interpreted. workup for other causes of arthritis to include ESR, CRP, Hep panel, uric acid, RF and NELL ----> negative 10/26 Ok to remove splint, continue steroid taper until DC. Fever likely secondary to above left wrist arthritis and inflammation UA negative Tylenol prn monitor Fever resolved HTN No antihypertensives in med rec but history of poor Bp stable now will continue to monitor and adjust tx as indicated CVA x 2 Continue ASA 81mg daily - will add PPI given patients reported history of GI upset with previous use Dyslipidemia continue Pravastatin Glaucoma continue with Xalatan eye drops, seems stable, no visual disturbances or complaints Hyperglycemia Hb A1C 5.0. Diabetes ruled out. Blood sugars stable. K to DC fingersticks and SSI with Novolog. DVT prophylaxis Encourage ambulation Discharge Planning I will sign off. Please reconsult if needed. Jordy Saldana MD October 26, 2016 16:08
[2016-10-26 18:16] VITALS: BP 137/69; PULSE 85; RESP 18; TEMP 98.1; O2SAT 99
[2016-10-26] MEDS ORDERED: predniSONE 20 MG TAB PO SCH (20:00)
[2016-10-26] MEDS: PRAVASTATIN SOD 80 MG TAB PO SCH (20:48)
[2016-10-26] MEDS: DONEPEZIL HCL 5 MG TAB PO SCH (20:48)
[2016-10-26] MEDS: LATANOPROST 0.005% OPHT SOLN 2.5 ML BTL EACH EYE SCH (20:52)
[2016-10-27 06:09] VITALS: BP 97/48; PULSE 72; RESP 20; TEMP 97.9; O2SAT 99
[2016-10-27] MEDS: INSULIN ASPART SUPPLEMENTAL SCALE SQ SCH (06:49)
[2016-10-27] MEDS: QUEtiapine FUMARATE 25 MG TAB PO SCH ×3 (08:00→20:47)
[2016-10-27] MEDS: ASPIRIN EC 81 MG TABEC PO SCH (08:35)
[2016-10-27] MEDS: MEMANTINE HCL 10 MG TAB PO SCH ×2 (08:35→20:46)
[2016-10-27] MEDS: DIVALPROEX SODIUM DELAYED RELEASE 250 MG TAB PO SCH ×2 (08:35→20:46)
--- NOTE | 2016-10-27 13:08 | PD.TTN ---
Present for Treatment Team Treatment Team Staff: Provider (Dr. Steward), Nurse, Psych Therapist ( PER Lyons), Occupational Therapist (Jan Cabrera), Other ( Recreation therapists G[place]) Patient Problems 1. Discharge planning 2. Medication compliance 3. Knowledge deficit 4. Lack of coping skills Progress Toward Goals Provider Input: Dr. Steward reported the patient's behavior remained in ciontrol and the addition of steroids did not have an effect on patient's mood or temper. Psych Therapist Input: Counselor reported the patient will be evaluated for return to [facility] today by [facility] staff. Other Clinican Input: Recreation therapists reproted the patient does attend groups. Documentation Scribe: PER Lyons Date Resolved: October 27, 2016 Eda Ogden October 27, 2016 13:08
--- NOTE | 2016-10-27 15:23 | HHI.PYPN ---
Subjective Remarks Patient seen and examined. Chart reviewed. Case discussed in treatment team. Per nursing staff, patient has been no behavioral problem. Occupational therapist notes that the patient is attending groups. Counselor reports that customer development representative from patient's facility will be in to see the patient tomorrow for possible return to facility. On my examination today, the patient is calm and in good spirits. He is at his confused baseline. No trace of irritability for me today. No psychotic symptoms. No side effects from medications. No physical complaints. Review of Systems ROS Limitations: Poor Historian Except as stated in HPI: all other systems reviewed are Neg Objective Alert: Yes Readlyn: Person Mood: Calm Affect: Euthymic Memory Intact: Comment (Impaired) Hallucinations: Other (No AVH) Delusions: No Delusion Type: Other (No delusions) Suicidal: Ideation (No SI) Homicidal: Ideation (No HI) Insight/Judgment Poor Remarks No motor abnormalities noted. Labs Labs reviewed. Iron studies not consistent with iron deficiency. Will recheck CBC in morning. 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 I discontinued Accu-Cheks and sliding scale insulin per hospitalist recommendations. I have additionally ordered eye drops patient takes at home as was supposed to have brought them in for patient's use. I have additionally completed requested paperwork from social security administration related to patient's present incapacity to manage his social security on account of his neurocognitive issues. Continue to monitor on the inpatient unit. Continue other medications and care as ordered. Justification for Cont. Inpt. High risk for decompensation in a less restrictive environment. Discharge Planning Hopeful for return to the facility in relatively short order after evaluation by customer development representative from facility tomorrow. Request HC Surrog/Guard Advoc?: Yes Chino Steward MD October 27, 2016 15:22
[2016-10-27 17:19] VITALS: BP 112/68; PULSE 80; RESP 18; TEMP 97.5
[2016-10-27] MEDS ORDERED: predniSONE 10 MG TAB PO ONE (20:00)
[2016-10-27] MEDS: PRAVASTATIN SOD 80 MG TAB PO SCH (20:45)
[2016-10-27] MEDS: LATANOPROST 0.005% OPHT SOLN 2.5 ML BTL EACH EYE SCH (20:46)
[2016-10-27] MEDS: DONEPEZIL HCL 5 MG TAB PO SCH (20:46)
[2016-10-27] MEDS ORDERED: BRIMONIDINE EACH EYE SCH (21:00)
[2016-10-27] MEDS ORDERED: BRINZOLAMIDE EACH EYE SCH (21:00)
[2016-10-27] MEDS ORDERED: PATIENT OWN MEDICATION EACH EYE SCH (21:00)
[2016-10-28 05:50] VITALS: BP 100/56; PULSE 81; RESP 16; TEMP 98.3; O2SAT 98
[2016-10-28] MEDS: ASPIRIN EC 81 MG TABEC PO SCH (09:24)
[2016-10-28] MEDS: MEMANTINE HCL 10 MG TAB PO SCH ×2 (09:24→20:52)
[2016-10-28] MEDS: DIVALPROEX SODIUM DELAYED RELEASE 250 MG TAB PO SCH ×2 (09:24→20:52)
[2016-10-28] MEDS: QUEtiapine FUMARATE 25 MG TAB PO SCH ×3 (09:30→20:56)
[2016-10-28 09:39] LABS: AUTOMATED NEUTROPHIL # 2.7 TH/MM3 (1.8-7.7); BASOPHIL % 0.6 % (0.0-2.0); EOSINOPHIL # 0.1 TH/MM3 (0-0.4); EOSINOPHIL % 1.1 % (0.0-4.0); HEMATOCRIT 39.2 % (39.0-51.0); HEMO FLAGS DIFF FINAL; LYMPH % 35.6 % (9.0-44.0); LYMPHOCYTE # 1.8 TH/MM3 (1.0-4.8); MEAN CELL VOLUME 94.8 FL (80.0-100.0); MEAN CORPUSCULAR HEMOGLOBIN 31.5 PG (27.0-34.0); MEAN CORPUSCULAR HGB CONC 33.2 % (32.0-36.0); MONO % 9.7 % (0.0-8.0); PLATELET COUNT 118 TH/MM3 (150-450); RED BLOOD COUNT 4.13 MIL/MM3 (4.50-5.90); WHITE BLOOD COUNT 5.2 TH/MM3 (4.0-11.0)
--- NOTE | 2016-10-28 13:38 | HHI.PYPN ---
Subjective Remarks Patient seen and examined. Chart reviewed. Case discussed with nursing staff reports patient has been no significant behavioral problem. On my examination today, the patient is sitting calmly in the day area. 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 No evidence of psychosis or irritability. No side effects from medications. No physical complaints. Review of Systems ROS Limitations: Poor Historian Except as stated in HPI: all other systems reviewed are Neg Objective Alert: Yes Callaway: Person Mood: Calm Affect: Blunted Memory Intact: Comment (remains impaired on clinical exam) Hallucinations: Other (No AVH) Delusions: No Delusion Type: Other (no delusional material) Suicidal: Ideation (No SI) Homicidal: Ideation (No HI) Insight/Judgment Poor Remarks No motor abnormalities noted. Swelling on left wrist seems significantly improved. Labs Test 10/28/16 07:28 White Blood Count 5.2 TH/MM3 Red Blood Count 4.13 MIL/MM3 Hemoglobin 13.0 GM/DL Hematocrit 39.2 % Mean Corpuscular Volume 94.8 FL Mean Corpuscular Hemoglobin 31.5 PG Mean Corpuscular Hemoglobin 33.2 % Concent Red Cell Distribution Width 13.0 % Platelet Count 118 TH/MM3 Mean Platelet Volume 10.7 FL Neutrophils (%) (Auto) 53.0 % Lymphocytes (%) (Auto) 35.6 % Monocytes (%) (Auto) 9.7 % Eosinophils (%) (Auto) 1.1 % Basophils (%) (Auto) 0.6 % Neutrophils # (Auto) 2.7 TH/MM3 Lymphocytes # (Auto) 1.8 TH/MM3 Monocytes # (Auto) 0.5 TH/MM3 Eosinophils # (Auto) 0.1 TH/MM3 Basophils # (Auto) 0.0 TH/MM3 CBC Comment DIFF FINAL Differential Comment Labs reviewed. Interval improvement in patient's anemia. Thrombocytopenia is stable. 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 Patient's psychiatric symptoms seem well controlled at present. Patient is now no longer on steroids. Continue to monitor on the inpatient unit. Continue other medications and care as ordered. Justification for Cont. Inpt. High risk for decompensation in a less restrictive environment. Discharge Planning Bird Keeper from patient's facility is coming to evaluate him today for possible return to facility. I will follow up with counselor. Request HC Surrog/Guard Advoc?: Yes Chino Steward MD October 28, 2016 13:38
[2016-10-28 20:00] VITALS: BP 116/73; PULSE 95; RESP 18; TEMP 97.3
[2016-10-28] MEDS: PRAVASTATIN SOD 80 MG TAB PO SCH (20:51)
[2016-10-28] MEDS: DONEPEZIL HCL 5 MG TAB PO SCH (20:52)
[2016-10-28] MEDS: LATANOPROST 0.005% OPHT SOLN 2.5 ML BTL EACH EYE SCH (20:53)
[2016-10-29 05:13] VITALS: BP 100/59; PULSE 80; RESP 16; TEMP 99.3; O2SAT 96
[2016-10-29] MEDS ORDERED: ARIC5TAB2 PO (07:45)
[2016-10-29] MEDS ORDERED: DIVA250T PO (07:45)
[2016-10-29] MEDS ORDERED: NAME10TA PO (07:45)
[2016-10-29] MEDS ORDERED: QUET1TAB7 PO (07:45)
[2016-10-29] MEDS ORDERED: ASPI-110 PO (07:45)
--- NOTE | 2016-10-29 07:45 | HHI.DS ---
Psychiatry Discharge Summary Inpatient Psychiatric care?: Yes Advance Directive: No Mental Health AdvanceDirective: Yes Health Care Proxy: No Admission Admission Date October 01, 2016 at 22:05 Admission Diagnosis: (1) Dementia of Alzheimer's type with behavioral disturbance ICD Code: G30.8 Brief History Mr. Monaco is a 76-year-old male with a history of dementia with behavioral disturbance who presents under a Campa act from his [facility] facility alleging agitation there. Reviewing the electronic medical record, I note the patient was admitted in August of this year under Dr. Bob for dementia with behavioral disturbance. Patient seen and examined. Chart reviewed. Case discussed with nursing staff. On my examination today, the patient is presently calm but was reportedly agitated this morning; he was medicated with Geodon. He presents as somewhat watchful and guarded. He denies any AVH. He denies any suicidal or homicidal ideation. Affect is somewhat restricted and dysphoric. Mental status testing suggests cognitive impairment, as detailed below. He believes that he is in his dwelling and is unsure how he came to be here. Psychiatric interview is somewhat limited because of patient's cognitive impairment. Past psychiatric history: Patient is likely an unreliable historian. For example, the patient denies any history of psychiatric admissions even though he was just admitted within the last month under Dr. Bob. He denies any history of suicide attempts. Family history: Patient denies any family history of mental illness. Chemical dependency history: Patient denies any active substance use but does report a history of alcohol use. Social history: Patient believes that he is in his residence. He is and reports that he has 3 children, Louise, Norbert and Shane. He did not graduate high school. 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 He denies any history. Tobacco Use In Past 30 Days: No Tobacco Past 30 Days Alcohol Use: Never Hospital Course Patient was admitted to a locked, inpatient psychiatric unit. A general medical consultation was obtained. Appropriate precautions were in place throughout patient's hospital stay. Patient was seen and examined daily on the unit by psychiatry and also visited by counselor. Medications were adjusted. Patient tolerating discharge psychotropic regimen well without side effects. Patient did develop inflammatory arthropathy necessitating use of steroid taper while on the inpatient unit with resultant mild exacerbation in his irritability. Otherwise, the patient's behavior improved during the course of his hospital stay. There was no evidence of any suicidality or homicidality on the inpatient unit. Counselor has arranged for return to patient's facility, and a employment representative from facility has come out to evaluate the patient and deemed the patient ready to return there. On the day of discharge: Patient seen and examined. Chart reviewed. Case discussed with nursing staff. No behavioral issues noted overnight. On my examination this morning, the patient is calm and cooperative with examination. He remains at his confused baseline. No trace of remaining irritability. No psychotic symptoms. No issues with mood. No suicidal or homicidal ideation, intent or plan voiced. No side effects from medications. No physical complaints. Weighing the acute, chronic , and protective factors and based on the available evidence, I community relations advisor to a reasonable degree of medical certainty that the patient is at low imminent risk of harm to self or others from a mental illness as defined under the Campa act and his level of function is adequate for planned level of outpatient care. There is a component of chronic risk related to his dementia, but this would not be further ameliorated by a longer inpatient psychiatric hospital stay. The patient has maximized benefit from this inpatient psychiatric hospital stay. He will be discharged today to facility with psychiatric follow-up as arranged by counselor. Patient is also to follow-up with primary care. Patient to return to the psychiatric emergency room for any concerning psychiatric symptoms. Results Blood Pressure 100 / 59 Vital Signs Date Time Temp Pulse Resp B/P Pulse Ox O2 Delivery O2 Flow Rate FiO2 10/29/16 05:13 99.3 80 16 100/59 96 Laboratory Tests Test 10/28/16 07:28 Red Blood Count 4.13 MIL/MM3 (4.50-5.90) Platelet Count 118 TH/MM3 (150-450) Monocytes (%) (Auto) 9.7 % (0.0-8.0) Laboratory Results Test 10/25/16 10/26/16 08:32 06:39 Hemoglobin A1c 5.0 % (4.3-6.0) Valproic Acid (Depakene) Level 59 MCG/ML (50-100) Summary of Procedures None done Imaging Last Impressions Wrist X-Ray 10/22/16 0000 Signed Impressions: Service Date/Time: September 13:23 - CONCLUSION: 1. No acute fracture or dislocation. 2. Soft tissue swelling with marked joint space narrowing, subchondral sclerosis, subchondral cyst formation and some erosions especially around the distal radioulnar joint. 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 Cortez Zamudio MD Pending results at discharge: No Medications # of Antipsychotic meds at D/C: 1 Approp Antipsych med options 1 - Minimum of three failed multiple trials of monotherapy. 2 - Documented plan to taper to monotherapy due to previous use of multiple meds OR cross-taper in progress at D/C. 3 - Documentation of augmentation of Clozapine. 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 He is fairly well groomed and maintaining basic hygiene. He is awake and alert and oriented to person only. No abnormal motor movements noted. Speech is within normal limits for rate, tone and volume. Language and fund of knowledge along with memory seem reduced for age. Mood is fair and affect is somewhat blunted. Thought process somewhat scattered consistent with dementia diagnosis. No angela delusions. No audiovisual hallucinations. No suicidal or homicidal ideation, intent or plan. Insight and judgment are poor, chronically so. Pt Condition on Discharge: Stable Discharge Disposition: [facility]/PR[facility]NA Discharge Instructions Diet Instructions: As Tolerated, No Restrictions Activities you can perform: Weight Bearing as Gissell Scheduled Appointment: as per counselor's notes New Medications: Aspirin DR (Aspirin 81) 81 Mg Tabdr 81 MG PO DAILY Health Days 15 Ref [address] (Divalproex DR) 250 Mg Tabdr 500 MG PO BID Mental Health Days 15 Ref 1 TAB Donepezil HCl (Aricept) 5 Mg Tablet 10 MG PO HS Mental Health Days 15 Ref 1 TAB Quetiapine (Quetiapine) 25 Mg Tab 75 MG PO DAILY@08,15,21 Mental Health Days 15 Ref 1 TAB Continued Medications: Latanoprost Opth Drops (Xalatan Opth Drops) 0.005% Drops 1 DROP EACH EYE HS health #1 Ref 0 BOTTLE Memantine (Namenda) 10 Mg Tab 10 MG PO BID Mental Health Days 15 Ref 1 TAB (This prescription has been renewed ) Pravastatin (Pravachol) 80 Mg Tab 80 MG PO HS health #30 Ref 0 TAB Discontinued Medications: Alprazolam (Xanax) 0.25 Mg Tab 0.25 MG PO TID Anxiety Ref [address] (Depakote DR) 250 Mg Tabdr 250 MG PO TID Control Seizures #60 Ref 0 TAB Donepezil (Aricept) 10 Mg Tab 10 MG PO HS Dementia #30 Ref 0 TAB Paroxetine (Paxil) 10 Mg Tab 10 MG PO DAILY #30 Ref 0 TAB Quetiapine (Seroquel) 25 Mg Tab 25 MG PO TID #60 Ref 0 TAB Ziprasidone Inj (Geodon Inj) 20 Mg Inj 40 MG IM DAILY Maximum 40 mg daily PRN AGITATION VIAL ([Abh Gel]) 1 APPLIC TOPICAL Q4-6H PRN ANXIETY AND/OR AGITATION Discharge Time <= 30 minutes Discharge/Advance Care Plan Health Problems: (1) 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 Chino Steward at Smoking is Dangerous to Your Health. Avoid second hand smoking Problem Qualifiers (1) Dementia of Alzheimer's type with behavioral disturbance: Qualified Code: G30.8 - Alzheimer's dementia with behavioral disturbance, unspecified timing of dementia onset Chino Steward MD Oct 29, 2016 07:45
[2016-10-29] MEDS: QUEtiapine FUMARATE 25 MG TAB PO SCH ×2 (08:00→08:46)
[2016-10-29] MEDS: ASPIRIN EC 81 MG TABEC PO SCH ×2 (08:46→09:00)
[2016-10-29] MEDS: MEMANTINE HCL 10 MG TAB PO SCH ×2 (08:46→09:00)
[2016-10-29] MEDS: DIVALPROEX SODIUM DELAYED RELEASE 250 MG TAB PO SCH ×2 (08:46→09:00)
== END 2016-10-29 14:35 | DRG 884 ==
LOC: NEPD 13:13 → NEDA 22:05 → H250 22:43 → H270 10-05 12:05 → H250 10-09 12:15
PROVIDERS: ADMIT Psychiatry & Neurology Psychiatry; ATTEND Psychiatry & Neurology Psychiatry
DX: F01.51 Vascular dementia, unspecified severity, with behavioral disturbance (principal); G30.9 Alzheimer's disease, unspecified; I95.9 Hypotension, unspecified; D69.6 Thrombocytopenia, unspecified; R50.9 Fever, unspecified; F02.81 Dementia in other diseases classified elsewhere, unspecified severity, with behavioral disturbance; R73.9 Hyperglycemia, unspecified; F41.9 Anxiety disorder, unspecified; I10 Essential (primary) hypertension; Z86.73 Personal history of transient ischemic attack (TIA), and cerebral infarction without residual deficits; E78.5 Hyperlipidemia, unspecified; H40.9 Unspecified glaucoma; Z96.652 Presence of left artificial knee joint; M19.032 Primary osteoarthritis, left wrist; M12.832 Other specific arthropathies, not elsewhere classified, left wrist; M25.842 Other specified joint disorders, left hand
CPT/HCPCS: 73110; 80048; 80053; 80074; 80164; 80307; 81001; 82140; 82728; 82948; 83036; 83540; 83550; 84550; 85025; 85027; 85652; 86038; 86140; 86430; 93005; 96372; J1200; J1630; J1815; J3486; J7512; L3808